=== PATIENT | male | born 1950 | race Caucasian/White ===

== ENCOUNTER 2019-01-09 11:08 | Inpatient (IN) | payer MEDICARE, OTHER ==
[2019-01-09] MEDS ORDERED: NS 0.9% 1000 ML** 1,000 ML IV ONE (11:15)
--- NOTE | 2019-01-09 11:15 | ED ---
Dizziness - HPI Summary HPI Summary: This patient is a 68 year old male with a Hx of hypertension brought in by EMS accompanied by his son presenting to [facility] with a chief complaint of dizziness. The patient states he has a headache. His son states he was walking slowly and not feeling right since last night. His son reports weakness and nausea. EMS states on scene he was experiencing weakness. The patient states he fell today without injury. EMS reports a left-sided facial droop and the patient reports visual changes in his left eye. His last known normal was 2100 last night. He required assistance getting out of bed this morning. The patient is alert and oriented X3. Pt denies any fever, chills, erythema of eyes, sore throat, CP, SOB , cough, abdominal pain, N/V, dysuria, hematuria, myalgia, edema, or rash. - History Of Current Complaint Stated Complaint: DIZZY, Hx Obtained From: Patient, EMS Character: Dizzy Associated Signs And Symptoms: Positive: Nausea - Allergies/Home Medications Allergies/Adverse Reactions: Allergies Allergy/AdvReac Type Severity Reaction Status Date / Time No Known Allergies Allergy Verified 01/09/19 12:14 Home Medications: Home Medications Ibuprofen TAB* [Advil TAB*] 200 mg PO Q6H PRN 01/09/19 [History Confirmed ] Review of Systems Negative: Fever, Chills Positive: Blurred Vision - Left eye visual field changes. Negative: Erythema Negative: Sore Throat Negative: Chest Pain Negative: Shortness Of Breath, Cough Positive: Nausea. Negative: Abdominal Pain, Vomiting Negative: dysuria, hematuria Negative: Myalgia, Edema Negative: Rash Neurological: Other - Dizziness, left sided facial droop Positive: Headache All Other Systems Reviewed And Are Negative: Yes Physical Exam - Summary Physical Exam Summary: Constitutional: Well-developed, Well-nourished, Alert. (-) Distressed Skin: Warm, Dry HENT: Normocephalic; Atraumatic Eyes: Conjunctiva normal Neck: Musculoskeletal ROM normal neck. (-) JVD, (-) Stridor, (-) Tracheal deviation Cardio: Rhythm regular, rate normal, Heart sounds normal; Intact distal pulses; The pedal pulses are 2+ and symmetric. Radial pulses are 2+ and symmetric. (-) Murmur Pulmonary/Chest wall: Effort normal. (-) Respiratory distress, (-) Wheezes, (-) Rales Abd: Soft. (-) Tenderness, (-) Distension, (-) Guarding, (-) Rebound Musculoskeletal: (-) Edema Lymph: (-) Cervical adenopathy Neuro: Alert, Oriented x3, Strength normal, Cranial nerves II-XII are grossly intact. (-) Dysmetria, (-) Nystagmus, (-) Ataxia by finger to nose testing, (-) Sensory deficit. Ptosis of the left eye. Dysmetria on the left side. Left side visual field cut. Psych: Mood and affect Normal Triage Information Reviewed: Yes Vital Signs On Initial Exam: Temp Pulse Resp BP Pulse Ox 98.2 F 78 16 204/118 95 01/09/19 12:07 01/09/19 12:07 01/09/19 12:07 01/09/19 12:07 01/09/19 12:07 Vital Signs Reviewed: Yes Procedures - Sedation Patient Received Moderate/Deep Sedation with Procedure: No Diagnostics - Laboratory Result Diagrams: 01/11/19 06:09 01/10/19 04:35 Lab Statement: Any lab studies that have been ordered have been reviewed, and results considered in the medical decision making process. - Radiology CXR Radiology Interpretation Completed By: Radiologist Summary of Radiographic Findings: Diffuse mild prominence of the interstitial markings. Mild interstitial edema is not excluded. RIGHT paratracheal lymphadenopathy evident based on correlation with Ct aortogram of the neck of the same date. Probably additional bilateral hilar lymphadenopathy. Consider Ct of the chest with IV contrast for further assessment. ED Provider has reviewed this report. - CT Brain CT Interpretation Completed By: Radiologist Summary of CT Findings: Hypodense area in the right posterior cerebellum. This may represent an infarct. No hemorrhage is noted. ED Provider has reviewed this report. Head CTA CT Interpretation Completed By: Radiologist Summary of CT Findings: No evidence of large vessel occlusion is noted. No branch occlusion is identified. Anterior and middle cerebral arteries are patent. There is mediastinal adenopathy present. ED Provider has reviewed this report. National Institutes Of Health - NIH Scale Level of Consciousness: Alert/Keenly Responsive Ask Patient the Month and His/Her Age: Both Correct Ask Pt to Open/Close Eyes and Social Work Professor/Release Non-Paretic Hand: Both Correctly Best Gaze (Only Horizontal Eye Movement): Normal Visual Field Testing: Complete Hemianopia Facial Paresis-Pt to Smile & Close Eyes or Grimace Symmetry: Minor Paralysis Motor Function - Right Arm: No Drift-Holds 10 Seconds Motor Function - Left Arm: No Drift-Holds 10 Seconds Motor Function - Right Leg: No Drift-Holds 10 Seconds Motor Function - Left Leg: No Drift-Holds 10 Seconds Limb Ataxia-Must be out of Proportion to Weakness Present: Present in One Limb Sensory (Use Pinprick to Test Arms/Legs/Trunk/Face): Normal Best Language (Describe Picture, Name Items): No Aphasia Dysarthria (Read Several Words): Normal Extinction and Inattention: No Abnormality Total Score: 4 Dizzy Course/Dx - Course Course Of Treatment: This patient is a 68 year old male with a Hx of hypertension brought in by EMS accompanied by his son presenting to [facility] with a chief complaint of dizziness. EMS reports left sided facial droop and he states visual changes in his left eye. Keyonna Shipley called at 1115. Physical exam revealed Ptosis of the left eye. Dysmetria on the left side. Left side visual field cut. Dr. Galvez, Neurology, came into the see the patient at 1118. Patient had a NIH Stroke Scale score of 4. Patient taken to CT at 11:25. Spoke with Dr. Cha, Radiology concerning the results of the brain CT and CTA. Brain CT reveals Hypodense area in the right posterior cerebellum. This may represent an infarct. No hemorrhage is noted. Head CTA reveals No evidence of large vessel occlusion is noted. No branch occlusion is identified. Anterior and middle cerebral arteries are patent. There is mediastinal adenopathy present. CXR reveals Diffuse mild prominence of the interstitial markings. Mild interstitial edema is not excluded. RIGHT paratracheal lymphadenopathy evident based on correlation with Ct aortogram of the neck of the same date. Probably additional bilateral hilar lymphadenopathy. Consider Ct of the chest with IV contrast for further assessment. Labs were unremarkable except Hgb 13.7 L, Hct 41 L, Absolute Lymphs 0.5 L, glucose 128 H, Troponin 0.03 H. The patient was administered Lipitor, ASA, Tylenol, Visipaque, and NS. Consulted with Dr. Galvez , who recommended permissive hypertension up to 220 systolic. This plan was relayed to Dr. Leiva, Hospitalist, who accepted the patient for admission to the hospital and told to prepare for ICU admission. A plan for admission was discussed with the patient and he was agreeable with this plan. - Diagnoses Provider Diagnoses: CVA (cerebral vascular accident) During the Visit The Following Alert/Code Occurred: Code Shipley - Provider Notifications Discussed Care Of Patient With: Jasmina Galvez - Neurology Time Discussed With Above Provider: 11:20 - Code Shipley Neurology Exam Instructed by Provider To: MD Will See In ED Discharge ED - Sign-Out/Discharge Documenting (check all that apply): Patient Departure - Admission - Discharge Plan Condition: Stable Disposition: ADMITTED TO [facility] - Billing Disposition and Condition Condition: STABLE Disposition: Admitted to [facility] - Attestation Statements Document Initiated by Scribe: Yes Documenting Scribe: Patrick Hylton Provider For Whom Javan is Documenting (Include Credential): Abiel Puga MD Scribe Attestation: Patrick Horne scribed for Abiel Puga MD on 01/15/19 at 1236. Scribe Documentation Reviewed: Yes Provider Attestation: The documentation as recorded by the Patrick oneil accurately reflects the service I personally performed and the decisions made by Abiel fonseca MD Status of Scribe Document: Viewed
[2019-01-09] MEDS ORDERED: Iodixanol* (CONTRAST) 320 MG/ML 100 ML SDV IV ONE (11:31)
[2019-01-09 12:12] LABS: ABS Lymphocytes 0.5 10^3/ul (1.0-4.8); ABS Monocytes 0.2 10^3/ul (0-0.8); ABS Neutrophils 7.2 10^3/ul (1.5-7.7); Hematocrit 41 % (42-52); Hemoglobin 13.7 g/dL (14.0-18.0); Lymphocyte % 6.3 %; Mean Corpuscular HGB Conc 34 g/dL (31-36); Mean Corpuscular Hemoglobin 30 pg (27-31); Mean Corpuscular Volume 89 fL (80-94); Mean Platelet Volume 7.7 fL (7.4-10.4); Platelet Count 298 10^3/uL (150-450); Red Blood Count 4.55 10^6 /uL (4.18-5.48); Red Cell Distribution Width 15 % (10-15); White Blood Count 7.9 10^3/uL (3.5-10.8)
[2019-01-09 12:22] LABS: INR 1.01 (0.82-1.09)
[2019-01-09 12:33] LABS: Albumin 4.4 g/dL (3.2-5.2); Albumin/Globulin Ratio 1.3 (1-3); Calcium 9.1 mg/dL (8.6-10.3); EGFR African American 90.2 (>60); EGFR Non-African American 74.5 (>60); Globulin 3.5 g/dL (2-4); HDL Cholesterol 42.8 mg/dL; Potassium 4.2 mmol/L (3.5-5.0); Total Bilirubin 0.4 mg/dL (0.2-1.0); Total Protein 7.9 g/dL (6.4-8.9)
[2019-01-09 12:42] LABS: Troponin I 0.03 ng/mL (<0.03)
--- NOTE | 2019-01-09 12:53 | CONSULT ---
Consult Consult: Neurology Inpatient Consult Note Date of service: 01/09/2019 Reason for consult: Neurology was consulted by activating the code ford for stroke. The history was obtained by the patient and his son who was at bedside. 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 The patient was last known well on 01/08/2019 at 2100. The patient's son discovered the patient's deficits at 1000 on 01/09/2019. The son was picking his dad up so they both can start their day at work. The patient stated that he had trouble sleeping all night. He complained of headaches, gait imbalance, and visual problems. He cannot see anything on the right side. he denied any double vision. The headache is mostly in the posterior region and is not associated with nausea or vomiting. He reports no focal weakness. He did fall last night but did not lose consciousness. The patient is aspirin naive. NIHSS: 8. Please see the NIHSS check list in the ED records. Patient was deemed not a candidate for IV tPA on 01/09/2019 at 1130 a.m. Labs, Imaging and Other Diagnostics: Glucose: 128 Total Cholesterol: 205 LDL: 138 IMAGING: CT head without contrast 01/09/2019: area of hypoattentuation in the right cerebellum and left occipital lobe suggestive of multifocal embolic strokes. CTA head and neck 01/09/2019: no intracranial large vessel occlusion, aneurysms , or dissection. Past Medical History: no significant PMH Past Surgical History: cholecystectomy Family History: No family history of stroke or seizures. Social History: Denied tobacco or excessive alcohol use. Denied drug use. He lives alone. 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 Medications: Ibuprofen TAB* [Advil TAB*] 200 mg PO Q6H PRN 01/09/19 [History Confirmed ] Allergies No Known Allergies Allergy (Verified 01/09/19 12:14) Review of Systems: A 14-point ROS was obtained and otherwise negative except for what was mentioned in the HPI. Physical Exam: Vitals: Vital Signs - 12 hr Temp Pulse Resp BP Pulse Ox 01/09/19 12:07 98.2 F 78 16 204/118 95 01/09/19 11:43 98.3 F 77 17 204/118 96 01/09/19 11:42 97 01/09/19 11:11 98.3 F 77 19 225/126 95 General: well nourished, well developed. Alert, cooperative, no apparent distress, appears stated age. Head: normocephalic, without obvious abnormality Eyes: conjunctivae/corneas clear Neck: supple, symmetrical. No carotid bruit. No lymphadenopathy. Lungs: clear to auscultation bilaterally, non-labored CV: regular rhythm, S1, S2 normal, radial pulses palpable Extremities: normal range of motion with no cyanosis. Skin: no skin lesions or lacerations Psych: affect-broad and normal mood. Easy to establish rapport. Neurological examination: Mental status: awake; alert and oriented to person, place, time, & general circumstances; speech & language including expression, naming, repetition, & comprehension was assessed and found to be normal. Cranial nerves: I: not tested II, III, IV, : Pupils midrange and reactive to light, right homonomous hemianopsia. left eye droop/ptosis. V 1/2/3: sensation is intact on forehead, cheeks, and jaw region VII: Mild right facial droop. VIII: able to hear throughout the history process IX & X: symmetric palatal elevation XI: normal strength against resistance XII: tongue is symmetrical & midline with no atrophy or fasciculations Motor (R/L): moves all extremities to command and against gravity, subtle weakness on the right. Reflexes R L Brachioradialis 2+ 2+ Biceps 2+ 2+ Triceps 2+ 2+ Patella 2+ 2+ Ankle 1 1 Plantar Extensor flexor Sensation is intact to light touch throughout. Coordination: severe dysmetria to finger to nose and HTS testing on the right. Gait & Station: n/a due to stroke Assessment: Mr. Cain Pratt is a 68-year-old right-handed man who has no significant medical history who presented to [facility] with stroke. 1. Acute multifocal ischemic strokes involving the left posterior cerebral and right superior cerebellar arteries. - NIHSS: 8. The patient is not a candidate for IV tPA as he presented outside the therapeutic window. There is no evidence for an LVO on CTA head and neck so he is not a candidate for mechanical thrombectomy. - The stroke etiology- cardio embolic due to two vessel involvement. There is no evidence of vertebral artery dissection. 2. Hypertensive emergency related to stroke 3. Headache due to stroke. There is no evidence of ICH on imaging. Recommendations: - Admit to ICU for 24 hours observation. - The right cerebellar stroke is close to the 4th ventricle. While the ventricle is patent, cerebral edema within the next 48-72 hours may increase the patient's risk of developing hydrocephalus. - Neuro checks every one hour - MRI brain without contrast - 2D TTE with bubble study - Anticoagulation therapy: not indicated unless he develops atrial fibrillation - Antiplatelet therpay: Aspirin 300 mg suppository - Start atorvastatin 80 mg nightly - Obtain a lipid panel - Headache: treat with suppository acetaminophen - Low threshold for stat CT head for any new neurological complaints or symptoms. - Permissive hypertension. Treat with labetalol 10 mg if SBP>220 and DBP >110 mmHg. - PT/OT/FLEXOGRAPHIC PRESS PLATE SETTER evaluation and treatment - DVT prophylaxis: [facility] will continue to follow. Discussed the above recommendations with the patient's son and Dr. Puga Critical care time: 60 minutes. Jasmina Galvez MD Date: 01/09/2019 Time: 4393
[2019-01-09] MEDS ORDERED: Perflutren Lipid Microsphere* 3 ML VIAL ONE (15:56)
--- NOTE | 2019-01-09 16:39 | HP ---
CC: [facility] * HISTORY AND PHYSICAL: DATE OF ADMISSION: 01/09/19 PRIMARY CARE PROVIDER: None; [facility]. ATTENDING PHYSICIAN: Betsey Leiva MD * (dictated by DOUGLAS Sharpe). CHIEF COMPLAINT: "I couldn't move." HISTORY OF PRESENT ILLNESS: Mr. Pratt is a 68-year-old male with a past medical history of borderline hypertension, BPH, history of alcoholism who has been lost to follow up for approximately 15 years and presented to the ER today with complaints of headache, weakness, dizziness, nausea, vision changes. The patient states that yesterday afternoon he started to feel weakness with headache and difficulty with movement. This morning, his son came to pick him up for work and the patient continued to have headache and weakness. An ambulance was called and he was brought to the ER. He was found to have an NIH stroke scale of 8, last known well 2100 on 01/08/19. Currently, he continues to have some headache and difficulty with movement, described as generalized weakness with no perceived difference in upper and lower extremities, left versus right. He complains of occasional night sweats for the last 1 to 2 days. He does complain of dizziness, lightheadedness, and vision changes. He does not feel that his vision changes are acute, rather that they have been "coming on a while." He complains of occasional palpitations, the last one occurring approximately 2 days ago. He denies fevers, chills, cough, shortness of breath. He denies dysphagia, dysarthria. He denies weight loss. He does complain of some heartburn. In the ER, the patient received a full workup including blood work revealing a mild anemia. He is noted to be hypertensive with systolic blood pressures in the 200s. A CT of the brain reveals a hypodense area in the right posterior cerebellar, likely infarct. CTA of the head and neck shows no large vessel occlusion, positive for mediastinal adenopathy. Chest x-ray shows right paratracheal lymphadenopathy, prominent interstitial markings. EKG with a rate of 77, normal sinus rhythm, no ST changes. The patient was given 1 L normal saline IV, 300 mg of aspirin per rectum, as well as 650 mg of acetaminophen per rectum. The hospitalist team was asked to further evaluate the patient for admission. PAST MEDICAL HISTORY: 1. Borderline hypertension. 2. BPH. 3. Remote history of alcoholism, last use 1990. The patient has been lost to follow up for approximately 15 years. PAST SURGICAL HISTORY: Hernia repair x2, cholecystectomy. HOME MEDICATIONS: Ibuprofen 200 mg p.o. q.6 hours p.r.n. pain. DRUG ALLERGIES: No known drug allergies. FAMILY HISTORY: Father had a history of IA, CABG, chronic kidney disease. He in his 70s from complications from chronic kidney disease. Mother is alive and healthy. The patient has a maternal grandfather with a history of lung cancer. No other history of cancer. No family history of diabetes mellitus or CVA. SOCIAL HISTORY: The patient quit smoking approximately 23 years ago, prior to that he smoked 3 packs a day for approximately 25 years. He lives alone with his cats. 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 In the event that he is unable to make his own medical decisions, he has appointed his son, Caesar Pratt, to be his surrogate decision maker. REVIEW OF SYSTEMS: A 14-point review of systems has been performed and all the pertinent positives and negatives are in the HPI. All other systems are negative. PHYSICAL EXAMINATION GENERAL: Mr. Pratt is a well-developed, well-nourished, obese 68-year-old white male who is sitting up in bed. He appears to be in no acute distress. There is a notable left facial droop. He is resting and breathing comfortably. HEENT: PERRL. EOMI. There is a visual field deficit. Right homonymous hemianopia. Nonicteric sclerae. Hearing is grossly intact. Oral mucous membranes are moist. There are no lesions. The tongue is at midline. Palate elevates symmetrically. There is a noted left facial droop. PULMONARY: Symmetrical chest expansion without use of accessory muscles. Clear to auscultation bilaterally without rhonchi, wheeze, rubs, or rales. No digital clubbing or cyanosis. CARDIOVASCULAR: Regular rate and rhythm with S1, S2 present without murmurs, rubs, clicks, or gallops. There is no JVD. There is no peripheral edema. Radial and pedal pulses are palpable. ABDOMEN: Obese. Bowel sounds in all quadrants. Soft, nontender to palpation. MUSCULOSKELETAL: Full range of motion without pain or deformity. 5/5 strength bilaterally in the upper and lower extremities. NEURO: The patient is awake. He is alert and oriented x3. He does have a facial droop. He has right homonymous hemianopia. Otherwise, cranial nerves II through XII grossly intact. Muscle strength 5/5 bilaterally in upper and lower extremities. Gait not assessed due to reported weakness. DIAGNOSTIC STUDIES/LAB DATA: Hgb 13.7, HCT 41. LDL 138. 1. CT brain, impression: Hypodense area in the right posterior cerebellum. This may represent an infarct. No hemorrhage is noted. 2. CTA of the head and neck, impression: No evidence of large vessel occlusion is noted. No branch occlusion is identified. Anterior and middle and cerebral arteries are patent. There is mediastinal adenopathy present. 3. Chest x-ray, impression: Diffuse mild prominence of the interstitial markings, mild interstitial edema is not excluded, right paratracheal lymphadenopathy evident based on correlation with CT aortogram of the neck of the same date. Probable additional bilateral hilar lymphadenopathy. Consider CT of the chest with IV contrast for further assessment. ASSESSMENT AND PLAN: Mr. Pratt is a 68-year-old male with a past medical history of borderline hypertension, benign prostatic hyperplasia, history of alcoholism, who has not seen a medical professional in approximately 15 years, who presents to the ER today with complaints of headache, weakness, and is found to have a cerebrovascular accident CT imaging of the brain. The patient will be admitted for: 1. Cerebrovascular accident. CT of the brain shows right cerebellar infarct. The patient's NIH stroke scale was 8. He was not a candidate for IV tPA. He has been given aspirin OK and we will continue this while inpatient. He will be admitted to intensive care unit on telemetry. Neuro checks q.4 hours have been ordered. Neurology has been consulted and they are following: An echo with bubble study has been ordered, MRI of the head will be performed. Lipid panel and hemoglobin A1c have been ordered. The patient is noted to have an LDL of 138. It is recommended that he start on atorvastatin 80 mg once he is swallowing appropriately. Speech therapy, occupational therapy, physical therapy has been ordered, as has swallow evaluation. Currently, the patient is hypertensive, but we will allow permissive hypertension to systolic pressure of 220. 2. Lymphadenopathy. The patient has noted lymphadenopathy on CTA of the neck as well as chest x-ray. Recommendations are CT chest with contrast. 3. Hyperlipidemia. The patient has an LDL of 138. We will repeat lipid panel in the morning. The patient should be treated with high-dose statin therapy once he is able to swallow. 4. Hypertension. The patient has a history of borderline hypertension. We will continue to monitor his blood pressure throughout his stay. At this time, we will allow for permissive hypertension to systolic blood pressure of 220 in the acute phase of CVA, but we will reassess thereafter for need for further intervention. 5. DVT prophylaxis. According to the DVT Risk Assessment, the patient scores 3 , placing him at high risk. He will be placed on SCDs. 7. Code status. Full code. TIME SPENT: Approximately 70 minutes was spent on this admission, greater than half that time was spent [id number] with the patient and the son obtaining history, performing a physical, and reviewing the plan of care. The case has been discussed with my attending, Dr. Leiva, who is in agreement with the plan of care. DOUGLAS EASTON [id number]/[facility] #: [id number]
--- NOTE | 2019-01-09 17:08 | ECHO ---
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 History: Risk factors: Hypertension. Obese. Conclusions Summary: - Left ventricle: Systolic function is normal. The estimated ejection fraction is 60-65%. Wall motion is normal; there are no regional wall motion abnormalities. - Right ventricle: Systolic function is normal. - Atrial septum: No defect or patent foramen ovale is identified. - Mitral valve: There is trace regurgitation. - Aortic valve: The findings are consistent with moderate stenosis. There is no significant regurgitation. The peak systolic velocity is 2.91 m/sec. The mean systolic gradient is 22.0 mm Hg. The valve area by the peak velocity method is 1.58 cm^2. - Tricuspid valve: There is no significant regurgitation. - Pulmonary arteries: Systolic pressure can not be accurately estimated. - Study data: No prior study is available for comparison. Study data: Transthoracic echocardiogram. Procedure: Transthoracic echocardiography was performed. Image quality was fair. The study was technically limited due to body habitus. Intravenous Definity 4 ml was administered by Chase Barber RN to enhance imaging. A bubble study was performed using agitated saline on Images 117 and 118. Complete 2D, spectral Doppler, and color flow Doppler. Location: ICU Patient status: Inpatient. Patient room number: ICU 7. No prior study is available for comparison. Rhythm: Normal sinus rhythm. Findings Left ventricle: The cavity size is normal. Wall thickness is moderately increased. Systolic function is normal. The estimated ejection fraction is 60-65%. Wall motion is normal; there are no regional wall motion abnormalities. There is no consistent Doppler evidence of clinically significant diastolic dysfunction. Right ventricle: The cavity size is normal. Systolic function is normal. Left atrium: The atrium is normal in size. Right atrium: The atrium is normal in size. Atrial septum: No defect or patent foramen ovale is identified. Bubble study was negative on Images 117 and 118. Mitral valve: The leaflets are mildly thickened. There is no evidence of stenosis. There is trace regurgitation. Aortic valve: A bicuspid morphology cannot be excluded. The leaflets are moderately thickened. The findings are consistent with moderate stenosis. There is no significant regurgitation. Tricuspid valve: Not well visualized. There is no evidence of stenosis. There is no significant regurgitation. Pulmonic valve: Not well visualized. There is no evidence of stenosis. There is no significant regurgitation. Aorta: Aortic root: The aortic root is mildly dilated at 3.7 cm. Ascending aorta: The ascending aorta is moderately dilated at 4.3 cm. Aortic arch: The aortic arch is not dilated. Pericardium: There is no pericardial effusion. Pulmonary arteries: Not well visualized. Systolic pressure can not be accurately estimated. Systemic veins: Inferior vena cava: The vessel is normal in size. Measurements Left ventricle Value Ref Aortic valve Value Ref STEPAN, LAX 5.3 cm 4.2 - 5.8 Lin diam, ED 2.1 cm ---- ESD, LAX 3.2 cm 2.5 - 4.0 Lin diam/bsa, ED 1.0 cm/m^2 ---- FS, LAX 41 % 25 - 43 Peak v, S 2.91 m/sec ---- PW, ED (H) 1.3 cm 0.6 - 1.0 VTI, S 62.9 cm ---- IVS/PW, ED 1.34 Mean grad, S 22.0 mm Hg ---- E', lat lin, TDI (L) 5.1 cm/sec >=10.0 Peak grad, S 34.0 mm Hg - --- E/e', lat lin, 18 LVOT/AV, VTI ratio 0.38 ---- TDI CECY, VTI 1.45 cm^2 ---- E', med lin, TDI (L) 5.0 cm/sec >=7.0 CECY, Vmax 1.58 cm^2 - --- E/e', med lin, 18 TDI Mitral valve Value Ref E', avg, TDI 5.1 cm/sec Peak E 0.92 m/sec ---- E/e', avg, TDI (H) 18 <=14 Peak A 1.17 m/sec - --- Decel time 201 ms ---- LVOT Value Ref Peak grad, D 3.4 mm Hg ---- Diam, S 2.20 cm Peak E/A ratio 0.8 ---- Area 3.8 cm^2 Peak carson, S 1.21 m/sec Pulmonic valve Value Ref VTI, S 24.0 cm Peak v, S 0.91 m/sec ---- Peak grad, S 6 mm Hg Peak grad, S 3.0 mm Hg ---- Mean grad, S 4 mm Hg SV 87 ml Aortic root Value Ref SV/bsa 41 ml/m^2 Root diam 3.7 cm <4.2 Ventricular septum Value Ref Ascending aorta Value Ref IVS, ED (H) 1.7 cm 0.6 - 1.0 AAo AP diam, S 4.3 cm ---- Right ventricle Value Ref Aortic arch Value Ref STEPAN, LAX 3.0 cm Arch diam 3.3 cm ---- STEPAN minor ax, A4C (H) 4.0 cm 1.9 - 3.5 mid Decending aorta Value Ref Claritza peak carson 0.6 m/sec ---- Left atrium Value Ref AP dim, ES (H) 4.10 cm 3.00 - Inferior vena cava Value Ref 4.00 Diam 2.0 cm ---- ML dim, A4C 4.2 cm SI dim, A4C 5.5 cm Vol/bsa, ES, 1-p 22 ml/m^2 12 - 37 A4C Vol/bsa, ES, A/L 29 ml/m^2 16 - 34 Right atrium Value Ref ML dim, ES, A4C 4.0 cm 2.6 - 4.4 SI dim, ES, A4C 4.9 cm 3.4 - 5.3 Estimated RAP 3 mm Hg Legend: (L) and (H) radha values outside specified reference range. Prepared and electronically signed by Fredy James MD 01/09/2019 17:07
[2019-01-09 17:28] LABS: Urine Appearance Clear; Urine Bilirubin Negative (Negative); Urine Blood Negative (Negative); Urine Color Yellow; Urine Glucose Negative (Negative); Urine Ketones Trace (Negative); Urine Nitrite Negative (Negative); Urine Protein Negative (Negative); Urine Specific Gravity 1.048 (1.010-1.030); Urine Urobilinogen Negative (Negative)
[2019-01-09] MEDS: Ondansetron INJ* 2 MG/ML VIAL IV PRN (18:19)
[2019-01-09] MEDS: Acetaminophen TAB* 325 MG PO PRN (18:23)
[2019-01-09] MEDS ORDERED: Atorvastatin* 80 MG TAB PO ONE (21:00)
[2019-01-10 05:05] LABS: HDL Cholesterol 35.1 mg/dL
[2019-01-10 06:57] LABS: BUN/Creatinine Ratio 16.2 (8-20); Calcium 8.3 mg/dL (8.6-10.3); EGFR Non-African American 66.1 (>60); Potassium 3.5 mmol/L (3.5-5.0)
--- NOTE | 2019-01-10 08:25 | PN ---
Subjective Date of Service: 01/10/19 Interval History: Mr. Pratt is feeling fine this morning. No changes from yesterday. Still feeling generally weak and bilateral right homonymous hemianopsia. Having a mild headache on and off. No dizziness or other neuro deficits. Nursing reports patient passed bedside swallow eval yesterday. Neuro checks overnight have been consistent. Family History: Unchanged from Admission Social History: Unchanged from Admission Past Medical History: Unchanged from Admission Objective Active Medications: Acetaminophen (Tylenol Tab*) 975 mg PO Q8H PRN mild to moderate pain Aspirin (Aspirin 81 Mg Chew Tab*) 81 mg PO DAILY LEX Atorvastatin Calcium (Lipitor*) 80 mg PO 1700 LEX Influenza Virus Vaccine (Fluarix Quad 3297-0430 Syr) 0.5 ml IM .ONCE ONE Ondansetron HCl (Zofran Inj*) 4 mg IV Q6H PRN NAUSEA Pneumococcal Polyvalent Vaccine (Pneumococcal Vac 23-Polyvalent*) 0.5 ml IM .ONCE ONE Vital Signs - 8 hr 01/10/19 01/10/19 01/10/19 00:30 00:45 01:00 Temperature Pulse Rate 65 65 65 Respiratory 17 15 19 Rate Blood Pressure 166/88 182/106 175/106 (mmHg) O2 Sat by Pulse 98 98 98 Oximetry 01/10/19 01/10/19 01/10/19 01:15 01:30 01:46 Temperature Pulse Rate 62 63 62 Respiratory 15 14 20 Rate Blood Pressure 187/107 181/105 172/102 (mmHg) O2 Sat by Pulse 98 98 98 Oximetry 01/10/19 01/10/19 01/10/19 02:00 02:15 02:30 Temperature Pulse Rate 61 65 64 Respiratory 15 17 15 Rate Blood Pressure 177/104 171/99 152/94 (mmHg) O2 Sat by Pulse 97 96 94 Oximetry 01/10/19 01/10/19 01/10/19 02:45 03:00 03:15 Temperature Pulse Rate 64 63 60 Respiratory 15 16 16 Rate Blood Pressure 155/94 163/97 157/87 (mmHg) O2 Sat by Pulse 94 95 91 Oximetry 01/10/19 01/10/19 01/10/19 03:30 03:45 03:52 Temperature 99.6 F Pulse Rate 59 59 Respiratory 15 14 Rate Blood Pressure 162/96 185/106 (mmHg) O2 Sat by Pulse 96 99 Oximetry 01/10/19 01/10/19 01/10/19 04:00 04:15 04:30 Temperature Pulse Rate 57 56 64 Respiratory 13 15 15 Rate Blood Pressure 162/97 158/96 183/108 (mmHg) O2 Sat by Pulse 97 97 98 Oximetry 01/10/19 01/10/19 01/10/19 04:45 05:00 05:15 Temperature Pulse Rate 59 57 58 Respiratory 14 16 16 Rate Blood Pressure 178/102 166/99 163/88 (mmHg) O2 Sat by Pulse 98 96 98 Oximetry 01/10/19 01/10/19 01/10/19 05:30 05:45 06:00 Temperature Pulse Rate 58 60 64 Respiratory 15 16 15 Rate Blood Pressure 156/83 167/91 192/111 (mmHg) O2 Sat by Pulse 98 98 97 Oximetry 01/10/19 01/10/19 01/10/19 06:15 06:30 06:45 Temperature Pulse Rate 63 61 63 Respiratory 15 15 16 Rate Blood Pressure 207/117 178/108 188/106 (mmHg) O2 Sat by Pulse 98 97 96 Oximetry 01/10/19 01/10/19 01/10/19 07:00 07:16 07:30 Temperature Pulse Rate 65 79 64 Respiratory 18 15 11 Rate Blood Pressure 199/115 200/119 190/108 (mmHg) O2 Sat by Pulse 98 98 97 Oximetry 01/10/19 01/10/19 07:45 07:50 Temperature Pulse Rate 67 Respiratory 16 12 Rate Blood Pressure 191/107 (mmHg) O2 Sat by Pulse 98 Oximetry Oxygen Devices in Use Now: Nasal Cannula - 2L Appearance: Middle-aged male lying in bed in NAD Neck: NL Appearance and Movements; NL JVP, Trachea Midline Respiratory: Symmetrical Chest Expansion and Respiratory Effort Cardiovascular: RRR Abdominal: NL Sounds; No Tenderness; No Distention Extremities: No Edema Neurological: Alert and Oriented x 3 Lines/Tubes/Other Access: Clean, Dry and Intact Peripheral IV Result Diagrams: 01/09/19 12:05 01/10/19 04:35 Assess/Plan/Problems-Billing Assessment: Mr. Pratt is a 68 yo M with PMH of HTN, BPH; who has not seen a provider in 15 years; who presented to the ED with c/o being unable to move and was found to have an acute CVA. - Patient Problems (1) Ischemic cerebrovascular accident (CVA) Code(s): I63.9 - CEREBRAL INFARCTION, UNSPECIFIED Comment: - Presented with generalized weakness, mild right facial droop, right homonymous hemianopsia - CT brain shows right posterior cerebellar infaract - CTA head shows mediastinal lymphadenopathy but no large vessel occlusion - MRI brain shows acute infarcts in right superior cerebellum and left occipital area - Echo unremarkable for PFO - Appreciate Neuro consult; recommends aspirin only d/t increased risk of bleeding from large infarcts, loop recorder - Allow permissive HTN up to 220 systolic and 110 diastolic - PT/OT and speech therapy evals - Contacted Cardiology for loop recorder placement - Continue aspirin, atorvastatin (2) Hypertension Code(s): I10 - ESSENTIAL (PRIMARY) HYPERTENSION Comment: - SBP up to the 220s on admission, now in 190s - Allow permissive HTN - Continue labetalol PRN for SBP >220 or DBP >110 (3) Headache Code(s): R51 - HEADACHE Comment: - Suspect this is secondary to HTN - Continue Tylenol PRN (4) Hyperlipidemia Code(s): E78.5 - HYPERLIPIDEMIA, UNSPECIFIED Comment: - LDL 122 - Continue atorvastatin (5) Mediastinal lymphadenopathy Code(s): R59.0 - LOCALIZED ENLARGED LYMPH NODES Comment: - Incidental finding, noted on CXR and head/neck CTA - Will need outpatient f/u CT chest with contrast for further evaluation (6) DVT prophylaxis Code(s): Z29.9 - ENCOUNTER FOR PROPHYLACTIC MEASURES, UNSPECIFIED Comment: - SCDs (7) Full code status Code(s): Z78.9 - OTHER SPECIFIED HEALTH STATUS Comment: Status and Disposition: Inpatient. Anticipate d/c home vs [facility] when medically stable. Attending: Fabricio Bates
[2019-01-10] MEDS ORDERED: Labetalol IV* 5 MG/ML 20 ML VIAL IV PUSH PRN (08:34)
[2019-01-10] MEDS ORDERED: Pneumococcal *Vac Polyvalent 0.5 ML VIAL IM ONE (09:00)
[2019-01-10] MEDS ORDERED: Influenza VAC *QUAD* 2019-20* 0.5 ML SYRINGE IM ONE (09:00)
[2019-01-10] MEDS: Ondansetron INJ* 2 MG/ML VIAL IV PRN ×2 (09:05→18:17)
[2019-01-10] MEDS: Acetaminophen TAB* 325 MG PO PRN ×2 (09:11→22:18)
--- NOTE | 2019-01-10 09:57 | PN ---
Subjective Date of Service: 01/10/19 Length of Stay: 1 Days Neurology is following for stroke. Interval History: He feels nauseated this morning. He has a full diet in front of him. He felt like he was going to vomit. He did drink some coffee and had toast. He had headaches that improved with acetaminophen. He is not choking. He feels slightly better but still has significant deficits consisting of visual impairment on the right. Labs, imaging, and other diagnostic testing: Cholesterol: 205 LDL 138 Glucose: 102 CT Head without contrast 01/09/2019: hypodensity in the right cerebellum and left occipital lobe consistent with a right SCA and left [employer] ischemic infarction. CTA head and neck 01/09/2019: No evidence of large vessel occlusion. No branch occlusion or dissection seen. MRI brain without contrast: acute infarct involving the right superior cerebellar and left [employer] vascular territories. Transthoracic Echo 01/09/2019: Image quality was fair. LVEF: 60-65%. No PFO. Normal left atrium. Aortic valve: bicuspid morphology cannot be excluded, leaflets are moderately thickened, consistent with moderate stenosis. No significant regurgitation. Review of Systems: Denied CP, SOB, or palpitations. Family History: Unchanged from Admission Social History: Unchanged from Admission Past Medical History: Unchanged from Admission Objective Active Medications: Acetaminophen (Tylenol Tab*) 975 mg PO Q8H PRN PRN Reason: mild to moderate pain Last Admin: 01/10/19 09:11 Dose: 975 mg Aspirin (Aspirin 81 Mg Chew Tab*) 81 mg PO DAILY LEX Atorvastatin Calcium (Lipitor*) 80 mg PO 1700 LEX Labetalol HCl (Trandate Iv*) 10 mg IV PUSH Q6H PRN PRN Reason: SBP >220 or DBP >110 Ondansetron HCl (Zofran Inj*) 4 mg IV Q6H PRN PRN Reason: NAUSEA Last Admin: 01/10/19 09:05 Dose: 4 mg Vital Signs 01/09/19 01/09/19 01/09/19 11:11 11:39 11:40 Temperature 98.3 F Pulse Rate 77 78 77 Respiratory 19 19 17 Rate Blood Pressure 225/126 204/118 (mmHg) O2 Sat by Pulse 95 97 96 Oximetry 01/09/19 01/09/19 01/09/19 11:42 11:43 12:00 Temperature 98.3 F Pulse Rate 77 79 Respiratory 17 20 Rate Blood Pressure 204/118 (mmHg) O2 Sat by Pulse 97 96 95 Oximetry 01/09/19 01/09/19 01/09/19 12:07 12:10 12:40 Temperature 98.2 F Pulse Rate 78 77 74 Respiratory 16 17 16 Rate Blood Pressure 204/118 210/118 213/122 (mmHg) O2 Sat by Pulse 95 96 98 Oximetry 01/09/19 01/09/19 01/09/19 13:00 13:10 13:54 Temperature 100.0 F Pulse Rate 78 76 81 Respiratory 18 13 17 Rate Blood Pressure 216/122 197/115 (mmHg) O2 Sat by Pulse 97 97 96 Oximetry 01/09/19 01/09/19 01/09/19 14:00 14:10 14:24 Temperature 97.9 F Pulse Rate 79 79 77 Respiratory 17 19 16 Rate Blood Pressure 196/122 196/122 (mmHg) O2 Sat by Pulse 95 94 95 Oximetry 01/09/19 01/09/19 01/09/19 14:45 14:58 15:00 Temperature Pulse Rate 81 81 79 Respiratory 15 17 10 Rate Blood Pressure 197/115 204/99 192/104 (mmHg) O2 Sat by Pulse 96 96 96 Oximetry 01/09/19 01/09/19 01/09/19 15:15 15:30 15:45 Temperature Pulse Rate 81 76 73 Respiratory 21 9 18 Rate Blood Pressure 210/126 185/100 173/94 (mmHg) O2 Sat by Pulse 97 95 94 Oximetry 01/09/19 01/09/19 01/09/19 16:00 16:16 16:31 Temperature 99.5 F Pulse Rate 82 79 81 Respiratory 20 14 23 Rate Blood Pressure 182/96 157/107 199/111 (mmHg) O2 Sat by Pulse 95 97 97 Oximetry 01/09/19 01/09/19 01/09/19 17:00 17:39 17:42 Temperature Pulse Rate 75 74 Respiratory 20 16 Rate Blood Pressure 195/109 (mmHg) O2 Sat by Pulse 94 94 Oximetry 01/09/19 01/09/19 01/09/19 17:46 18:00 18:15 Temperature Pulse Rate 78 74 72 Respiratory 19 15 21 Rate Blood Pressure 177/83 192/142 206/110 (mmHg) O2 Sat by Pulse 95 93 93 Oximetry 01/09/19 01/09/19 01/09/19 18:30 18:45 19:00 Temperature Pulse Rate 77 70 73 Respiratory 16 13 16 Rate Blood Pressure 185/102 171/108 165/101 (mmHg) O2 Sat by Pulse 90 97 97 Oximetry 01/09/19 01/09/19 01/09/19 19:15 19:30 19:32 Temperature 99.9 F Pulse Rate 75 72 Respiratory 21 17 Rate Blood Pressure 176/106 179/101 (mmHg) O2 Sat by Pulse 94 97 Oximetry 01/09/19 01/09/19 01/09/19 19:45 20:00 20:15 Temperature Pulse Rate 73 71 70 Respiratory 18 17 16 Rate Blood Pressure 173/105 168/109 166/80 (mmHg) O2 Sat by Pulse 97 97 97 Oximetry 01/09/19 01/09/19 01/09/19 20:30 20:45 21:00 Temperature Pulse Rate 72 69 76 Respiratory 17 17 17 Rate Blood Pressure 180/104 174/101 173/97 (mmHg) O2 Sat by Pulse 97 95 96 Oximetry 01/09/19 01/09/19 01/09/19 21:15 21:30 21:45 Temperature Pulse Rate 70 67 68 Respiratory 18 16 16 Rate Blood Pressure 170/95 167/94 162/100 (mmHg) O2 Sat by Pulse 96 95 95 Oximetry 01/09/19 01/09/19 01/09/19 22:00 22:15 22:30 Temperature Pulse Rate 68 64 70 Respiratory 17 15 21 Rate Blood Pressure 187/107 165/99 180/107 (mmHg) O2 Sat by Pulse 98 97 98 Oximetry 01/09/19 01/09/19 01/09/19 22:45 23:00 23:15 Temperature Pulse Rate 61 61 62 Respiratory 20 17 16 Rate Blood Pressure 180/99 177/104 182/101 (mmHg) O2 Sat by Pulse 99 97 98 Oximetry 01/09/19 01/09/19 01/09/19 23:30 23:45 23:48 Temperature Pulse Rate 62 63 62 Respiratory 17 15 16 Rate Blood Pressure 181/99 175/98 (mmHg) O2 Sat by Pulse 98 97 97 Oximetry 01/10/19 01/10/19 01/10/19 00:00 00:16 00:30 Temperature 98.6 F Pulse Rate 62 71 65 Respiratory 17 18 17 Rate Blood Pressure 174/104 182/109 166/88 (mmHg) O2 Sat by Pulse 97 99 98 Oximetry 01/10/19 01/10/19 01/10/19 00:45 01:00 01:15 Temperature Pulse Rate 65 65 62 Respiratory 15 19 15 Rate Blood Pressure 182/106 175/106 187/107 (mmHg) O2 Sat by Pulse 98 98 98 Oximetry 01/10/19 01/10/19 01/10/19 01:30 01:46 02:00 Temperature Pulse Rate 63 62 61 Respiratory 14 20 15 Rate Blood Pressure 181/105 172/102 177/104 (mmHg) O2 Sat by Pulse 98 98 97 Oximetry 01/10/19 01/10/19 01/10/19 02:15 02:30 02:45 Temperature Pulse Rate 65 64 64 Respiratory 17 15 15 Rate Blood Pressure 171/99 152/94 155/94 (mmHg) O2 Sat by Pulse 96 94 94 Oximetry 01/10/19 01/10/19 01/10/19 03:00 03:15 03:30 Temperature Pulse Rate 63 60 59 Respiratory 16 16 15 Rate Blood Pressure 163/97 157/87 162/96 (mmHg) O2 Sat by Pulse 95 91 96 Oximetry 01/10/19 01/10/19 01/10/19 03:45 03:52 04:00 Temperature 99.6 F Pulse Rate 59 57 Respiratory 14 13 Rate Blood Pressure 185/106 162/97 (mmHg) O2 Sat by Pulse 99 97 Oximetry 01/10/19 01/10/19 01/10/19 04:15 04:30 04:45 Temperature Pulse Rate 56 64 59 Respiratory 15 15 14 Rate Blood Pressure 158/96 183/108 178/102 (mmHg) O2 Sat by Pulse 97 98 98 Oximetry 01/10/19 01/10/19 01/10/19 05:00 05:15 05:30 Temperature Pulse Rate 57 58 58 Respiratory 16 16 15 Rate Blood Pressure 166/99 163/88 156/83 (mmHg) O2 Sat by Pulse 96 98 98 Oximetry 01/10/19 01/10/19 01/10/19 05:45 06:00 06:15 Temperature Pulse Rate 60 64 63 Respiratory 16 15 15 Rate Blood Pressure 167/91 192/111 207/117 (mmHg) O2 Sat by Pulse 98 97 98 Oximetry 01/10/19 01/10/19 01/10/19 06:30 06:45 07:00 Temperature Pulse Rate 61 63 65 Respiratory 15 16 18 Rate Blood Pressure 178/108 188/106 199/115 (mmHg) O2 Sat by Pulse 97 96 98 Oximetry 01/10/19 01/10/19 01/10/19 07:16 07:30 07:45 Temperature Pulse Rate 79 64 67 Respiratory 15 11 16 Rate Blood Pressure 200/119 190/108 191/107 (mmHg) O2 Sat by Pulse 98 97 98 Oximetry 01/10/19 01/10/19 07:50 08:30 Temperature 100.8 F Pulse Rate Respiratory 12 Rate Blood Pressure (mmHg) O2 Sat by Pulse Oximetry Intake and Output Last 24 Hours 01/08/19 01/09/19 01/10/19 01/11/19 06:59 06:59 06:59 06:59 Intake Total 700 Output Total 650 175 Balance 50 -175 Weight 230 lb 3.2 oz Intake: IV Fluids 700 NS (0.9%) 700 Output: Urine 650 175 Marcum 0 Other: # Voids 0 Oxygen Devices in Use Now: Nasal Cannula - 2L Neurology Exam: General: Well nourished, well developed, and in no acute distress HEENT: Normocephelic/atraumatic, sclera anicteric, mucous membranes moist Neck: Supple Chest: Clear to auscultation bilaterally Cardiovascular: holosystolic murmur. Extremities: No clubbing, cyanosis, or edema Neurological Findings: Awake, alert, and oriented to person, place, and time. Speech: mild dysarthria. Cranial Nerve: PERRL, severe right homonomous hemianopsia. Partial gaze palsy cannot be overcome. Right facial droop. Motor: s/s throughout, proximal and distal extremities x4 tone/bulk normal Sensation: intact to LT/PP bilaterally upper and lower extremities Deep Tendon Reflex: 2+ symmetric in the upper/lower extremities, Babinski - up going on the right. Dysmetria to finger to nose and heel to thomas testing on the right Gait: Deferred due to severe visual disturbance and dysmetria on examination. Result Diagrams: 01/09/19 12:05 01/10/19 04:35 Microbiology and Other Data: Microbiology 01/09/19 14:55 Nasal Screen MRSA (PCR) - Final Nasal Mrsa Not Detected Assessment/Plan Mr. Cain Pratt is a 68-year-old fairly healthy man with no significant medical history except for a heart murmur who presented to [facility] on 01/09/2019 with sudden onset visual disturbance and ataxia. He was found to have multifocal embolic strokes involving the right superior cerebellar artery and left posterior cerebral artery. He was outside the window for IV tPA. There was no large vessel occlusion on the CTA so he was not a candidate for mechanical thrombectomy. NIHSS is still an 8 today. 1. Acute embolic stroke of undetermined source (ESUS). 2. Nausea related to cerebellar stroke. High risk for aspiration 3. Hypertensive urgency due to stroke 4. Aortic stenosis 5. Dyslipidemia Recommendations: - He will need a ORTIZ to evaluate for thrombus in the left atrial appendage, left ventricle or ascending aorta. If the ORTIZ is negative, we should proceed with a loop recorder to evaluate for atrial fibrillation - Aspirin 81 mg daily and atorvastatin 80 mg nightly. DAPT was not used in this case due to the size of the infarctions and the NIHSS being over 4. - Start Norvasc 5 mg if his SBP goes above 190 mmHg or his DBP goes above 110 mmHg. - PT/OT/CANCER PROGRAM DIRECTOR evaluation and treatment. The patient feels nauseated due to his cerebellar stroke. I recommend not feeding him for the next 24 hours as he is at risk for vomiting and that would increase his risk for aspiration. Restart a modified diet tomorrow. We can give him thickened liquid until we resume a diet. - Stroke education completed - He will need rehabilitation - I will continue to follow - DVT prophylaxis: PCD and heparin 5,000 units subcutaneously every 8 hours.
[2019-01-10] MEDS: Aspirin 81 mg CHEW TAB* 81 MG TAB.CHEW PO SCH (10:42)
[2019-01-10] MEDS ORDERED: Naloxone* 0.4 MG/ML 1 ML VIAL ONE (14:52)
[2019-01-10] MEDS ORDERED: Flumazenil* 0.1 MG/ML 5 ML MDV ONE (14:52)
[2019-01-10] MEDS ORDERED: Lidocaine 2% VISCOUS* 15 ML UDC ONE (14:52)
[2019-01-10] MEDS ORDERED: Midazolam* 1 MG/ML 5 ML VIAL (5 MG) ONE (14:52)
[2019-01-10] MEDS ORDERED: fentaNYL* 50 MCG/ML 2 ML VIAL (100 MCG VIAL) ONE (14:52)
--- NOTE | 2019-01-10 17:01 | TEE ---
*[facility]* [place] [address] Fax #: [phone] Transesophageal Echocardiogram Patient: Cain Pratt : 1950 Study Date: 01/10/2019 Age: 68 Gender: M HR: 76 bpm Height: 66.1 in /168 cm BSA: 2.25 m^2 Weight: 228.8 lb /104 kg BMI: 36.8 kg/m^2 *Senior Javascript Engineer: * Candida Contreras [facility] *Referring Physician: * Kamille Morrissey *Reading Physician: * Fredy James MD Indications: CVA. History: Murmur. Risk factors: Hypertension. Conclusions Summary: - Left ventricle: Systolic function is normal. The estimated ejection fraction is 55-60%. Wall motion is normal; there are no regional wall motion abnormalities. - Left atrium: There is no evidence of a thrombus in the atrial cavity or appendage. - Atrial septum: A PFO is not demonstrated by color Doppler or agitated saline contrast. - Mitral valve: There are frond-like, mobile masses on the atrial aspect which could be consistant with Fibroelastomas or Lambl's excrescences There is trace to mild regurgitation. - Aortic valve: The valve is bicuspid. The leaflets are moderately thickened. 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 There is a small, calcified, mobile mass on the aortic aspect of the anterior cusp. The findings are consistent with moderate stenosis. - Tricuspid valve: There is no significant regurgitation. - Pericardium, extracardiac: There is no significant pericardial effusion. Study data: Diagnostic Transesophageal Echocardiogram Consent: The risks and benefits of the procedure, including alternatives were discussed with the patient and/or their health care business process representative and written informed consent was obtained. Procedure: Initial setup: The patient was brought to the laboratory in the fasting state.Intravenous access was obtained. Surface ECG leads, heart rate, heart rhythm, blood pressure measurements, pulse oximetric signals, and mainstream end-tidal CO2 tracings were monitored throughout the procedure. Sedation. Moderate sedation was administered by nursing staff. History and physical as well as labs were reviewed. An oral bite block was inserted for protection of oral dentition. The patient was placed in the left lateral decubitus position. Topical anesthesia was obtained using viscous lidocaine. A transesophageal probe was inserted by the attending area field worker. Transesophageal echocardiography was performed, image quality was good, and all standard views were attempted within the limitations of patient tolerance and safety. Multiple 2D, color flow Doppler and spectral Doppler images were obtained. The transesophageal probe was removed. There was no blood loss.No specimens obtained.No tubes, implants, or drains. A bubble study was performed. Location: Procedure room. Patient status: Inpatient. Patient room number: ICU 7. Study completion: The patient tolerated the procedure well. There were no complications. Administered medications: Midazolam, 4mg. Fentanyl, 50mcg. Findings Left ventricle: The cavity size is normal. Systolic function is normal. The estimated ejection fraction is 55-60%. Wall motion is normal; there are no regional wall motion abnormalities. Right ventricle: The cavity size is normal. Systolic function is normal. Left atrium: The atrium is normal in size. The appendage is of normal size. There is no evidence of a thrombus in the atrial cavity or appendage. Right atrium: The atrium is normal in size. The Eustachian valve appeared prominant. Atrial septum: A PFO is not demonstrated by color Doppler or agitated saline contrast. Negative bubble study. Mitral valve: The leaflets are normal thickness. There are frond-like, mobile masses on the atrial aspect which could be consistant with Fibroelastomas or Lambl's excrescences There is trace to mild regurgitation. Aortic valve: The valve is bicuspid. The leaflets are moderately thickened. 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 There is a small, calcified, mobile mass on the aortic aspect of the anterior cusp. The findings are consistent with moderate stenosis. There is no significant regurgitation. Tricuspid valve: The leaflets are normal thickness. There is no evidence of stenosis. There is no significant regurgitation. Pulmonic valve: The leaflets are normal thickness. There is no evidence of stenosis. There is no significant regurgitation. Aorta: Aortic root: The aortic root is mildly dilated and calcified. Ascending aorta: The ascending aorta is mildly dilated. Pericardium: There is no significant pericardial effusion. Pulmonary arteries: The main pulmonary artery is normal-sized. Systolic pressure can not be accurately estimated. Systemic veins: Inferior vena cava: The vessel is normal in size. Superior vena cava: The vessel is appears normal. Pulmonary veins: Not well visualized. Measurements Aortic valve Value Ref Mitral valve continued Value Ref Ashly diam, ED 2.5 cm ---- Decel time 82 ms ---- Peak v, S 2.65 m/sec ---- Peak grad, D 2.1 mm Hg ---- VTI, S 56.7 cm ---- Peak E/A ratio 0.7 ---- Mean grad, S 15.0 mm Hg ---- Peak grad, S 28.0 mm Hg ---- Aortic root Value Ref Root diam 3.9 cm <4.3 Mitral valve Value Ref Peak E 0.72 m/sec ---- Ascending aorta Value Ref Peak A 0.99 m/sec ---- AAo AP diam, S 3.9 cm ---- Legend: (L) and (H) radha values outside specified reference range. Prepared and electronically signed by Fredy James MD 01/10/2019 17:00
[2019-01-10] MEDS: Atorvastatin* 80 MG TAB PO SCH (18:17)
[2019-01-11 06:34] LABS: ABS Basophils 0.1 10^3/ul (0-0.2); ABS Lymphocytes 1.6 10^3/ul (1.0-4.8); ABS Monocytes 0.6 10^3/ul (0-0.8); ABS Neutrophils 4.9 10^3/ul (1.5-7.7); Eosinophil % 0.6 %; Hematocrit 38 % (42-52); Hemoglobin 13.2 g/dL (14.0-18.0); Lymphocyte % 22.4 %; Mean Corpuscular HGB Conc 35 g/dL (31-36); Mean Corpuscular Hemoglobin 31 pg (27-31); Mean Corpuscular Volume 88 fL (80-94); Platelet Count 257 10^3/uL (150-450); Red Blood Count 4.32 10^6 /uL (4.18-5.48); Red Cell Distribution Width 14 % (10-15); White Blood Count 7.3 10^3/uL (3.5-10.8)
[2019-01-11] MEDS: Heparin VIAL(*) 5000 UNITS/ML VIAL (FIVE THOUSAND) SUBCUT SCH ×3 (07:29→21:18)
[2019-01-11] MEDS: Acetaminophen TAB* 325 MG PO PRN ×2 (07:30→21:30)
[2019-01-11] MEDS: Aspirin 81 mg CHEW TAB* 81 MG TAB.CHEW PO SCH (08:31)
[2019-01-11] MEDS ORDERED: amLODIPine TAB* 5 MG PO SCH (09:00)
--- NOTE | 2019-01-11 11:07 | PN ---
Subjective Date of Service: 01/11/19 Interval History: Mr. Pratt is not feeling well today. He still feels very weak. Vision deficits remain unchanged. He ate breakfast this morning and and did not experience any difficulties with swallowing. Denies CP or SOB. No concerns from nursing. Family History: Unchanged from Admission Social History: Unchanged from Admission Past Medical History: Unchanged from Admission Objective Active Medications: Acetaminophen (Tylenol Tab*) 975 mg PO Q8H PRN mild to moderate pain Amlodipine Besylate (Norvasc Tab*) 5 mg PO DAILY [facility] Aspirin (Aspirin 81 Mg Chew Tab*) 81 mg PO DAILY [facility] Atorvastatin Calcium (Lipitor*) 80 mg PO 1700 [facility] Heparin Sodium (Porcine) (Heparin Vial(*)) 5,000 units SUBCUT Q8HR [facility] Labetalol HCl (Trandate Iv*) 10 mg IV PUSH Q6H PRN SBP >220 or DBP >110 Ondansetron HCl (Zofran Inj*) 4 mg IV Q6H PRN NAUSEA Vital Signs - 8 hr 01/11/19 01/11/19 01/11/19 03:15 04:00 07:28 Temperature 97.5 F 98.4 F Pulse Rate 61 63 Respiratory 16 16 16 Rate Blood Pressure 193/98 208/145 (mmHg) O2 Sat by Pulse 96 97 Oximetry 01/11/19 08:00 Temperature Pulse Rate Respiratory 16 Rate Blood Pressure (mmHg) O2 Sat by Pulse 96 Oximetry Oxygen Devices in Use Now: Nasal Cannula - 2L Appearance: Middle-aged male sitting in chair in NAD Ears/Nose/Mouth/Throat: Mucous Membranes Moist Neck: NL Appearance and Movements; NL JVP, Trachea Midline Respiratory: Symmetrical Chest Expansion and Respiratory Effort, Clear to Auscultation Cardiovascular: NL Sounds; No Murmurs; No JVD, RRR Abdominal: NL Sounds; No Tenderness; No Distention Neurological: Alert and Oriented x 3 Lines/Tubes/Other Access: Clean, Dry and Intact Peripheral IV Nutrition: Taking PO's Result Diagrams: 01/11/19 06:09 01/10/19 04:35 Assess/Plan/Problems-Billing Assessment: Mr. Pratt is a 68 yo M with PMH of HTN, BPH; who has not seen a provider in 15 years; who presented to the ED with c/o being unable to move and was found to have an acute CVA. - Patient Problems (1) Ischemic cerebrovascular accident (CVA) Code(s): I63.9 - CEREBRAL INFARCTION, UNSPECIFIED Comment: - Presented with generalized weakness, mild right facial droop, right homonymous hemianopsia - CT brain shows right posterior cerebellar infaract - CTA head shows mediastinal lymphadenopathy but no large vessel occlusion - MRI brain shows acute infarcts in right superior cerebellum and left occipital area - TTE unremarkable but ORTIZ shows multiple frond-like mobile masses on the mitral and aortic valves - Appreciate Neuro consult; recommends DAPT - Allow permissive HTN but will start to slowly bring BP down - PT/OT and speech therapy evals - Will need outpatient f/u with Cardiology d/t echo findings (may need TAVR in the future) - Check blood cultures per Neuro - Continue aspirin, atorvastatin; start Plavix per Neuro (2) Hypertension Code(s): I10 - ESSENTIAL (PRIMARY) HYPERTENSION Comment: - SBP up to the 220s on admission, now in 190s - Allow permissive HTN and will start to bring BP down slowly - Continue labetalol PRN; start amlodipine (3) Headache Code(s): R51 - HEADACHE Comment: - Suspect this is secondary to HTN - Continue Tylenol PRN (4) Hyperlipidemia Code(s): E78.5 - HYPERLIPIDEMIA, UNSPECIFIED Comment: - LDL 122 - Continue atorvastatin (5) Mediastinal lymphadenopathy Code(s): R59.0 - LOCALIZED ENLARGED LYMPH NODES Comment: - Incidental finding, noted on CXR and head/neck CTA - Will need outpatient f/u CT chest with contrast for further evaluation (6) DVT prophylaxis Code(s): Z29.9 - ENCOUNTER FOR PROPHYLACTIC MEASURES, UNSPECIFIED Comment: - SCDs (7) Full code status Code(s): Z78.9 - OTHER SPECIFIED HEALTH STATUS Comment: Status and Disposition: Inpatient. Anticipate d/c to [facility] when medically stable. PMRU referral placed. Attending: Fabricio Bates
[2019-01-11] MEDS: Clopidogrel TAB* 75 MG PO SCH (12:12)
--- NOTE | 2019-01-11 17:19 | PN ---
Subjective Date of Service: 01/11/19 Length of Stay: 2 Days Neurology is following for stroke. Interval History: He is up in a chair feeling well. He still has significant deficits with visual field cut on the right and right sided ataxia. He is watching television. He tolerated the ORTIZ well. He denied any headaches, visual disturbance, swallowing difficulty, or new weakness. Labs, imaging, and other diagnostic testing: Cholesterol: 205 LDL 138 Glucose: 102 CT Head without contrast 01/09/2019: hypodensity in the right cerebellum and left occipital lobe consistent with a right SCA and left [place] ischemic infarction. CTA head and neck 01/09/2019: No evidence of large vessel occlusion. No branch occlusion or dissection seen. MRI brain without contrast: acute infarct involving the right superior cerebellar and left [place] vascular territories. Transthoracic Echo 01/09/2019: Image quality was fair. LVEF: 60-65%. No PFO. Normal left atrium. Aortic valve: bicuspid morphology cannot be excluded, leaflets are moderately thickened, consistent with moderate stenosis. No significant regurgitation. ORTIZ 01/10/2019: Bicuspid aortic valve. Moderately thickened leaflets. There are small, frond-like masses on the left ventricular aspects. 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 Review of Systems: Denied CP, SOB, or palpitations. Family History: Unchanged from Admission Social History: Unchanged from Admission Past Medical History: Unchanged from Admission Objective Active Medications: Acetaminophen (Tylenol Tab*) 975 mg PO Q8H PRN PRN Reason: mild to moderate pain Last Admin: 01/11/19 07:30 Dose: 975 mg Amlodipine Besylate (Norvasc Tab*) 5 mg PO DAILY [facility] Last Admin: 01/11/19 08:31 Dose: 5 mg Aspirin (Aspirin 81 Mg Chew Tab*) 81 mg PO DAILY [facility] Last Admin: 01/11/19 08:31 Dose: 81 mg Atorvastatin Calcium (Lipitor*) 80 mg PO 1700 [facility] Last Admin: 01/10/19 18:17 Dose: 80 mg Clopidogrel Bisulfate (Plavix Tab*) 75 mg PO DAILY [facility] Last Admin: 01/11/19 12:12 Dose: 75 mg Heparin Sodium (Porcine) (Heparin Vial(*)) 5,000 units SUBCUT Q8HR [facility] Last Admin: 01/11/19 12:12 Dose: 5,000 units Labetalol HCl (Trandate Iv*) 10 mg IV PUSH Q6H PRN PRN Reason: SBP >220 or DBP >110 Ondansetron HCl (Zofran Inj*) 4 mg IV Q6H PRN PRN Reason: NAUSEA Last Admin: 01/10/19 18:17 Dose: 4 mg Vital Signs 01/10/19 01/10/19 01/10/19 19:15 20:00 21:42 Temperature 99.1 F 99.0 F Pulse Rate 71 67 Respiratory 16 16 16 Rate Blood Pressure 178/100 169/93 (mmHg) O2 Sat by Pulse 97 97 96 Oximetry 01/10/19 01/11/19 01/11/19 23:15 00:00 03:15 Temperature 98.2 F 97.5 F Pulse Rate 66 61 Respiratory 16 16 16 Rate Blood Pressure 136/84 193/98 (mmHg) O2 Sat by Pulse 96 96 Oximetry 01/11/19 01/11/19 01/11/19 04:00 07:28 08:00 Temperature 98.4 F Pulse Rate 63 Respiratory 16 16 16 Rate Blood Pressure 208/145 (mmHg) O2 Sat by Pulse 97 96 Oximetry Intake and Output Last 24 Hours 01/09/19 01/10/19 01/11/19 01/12/19 06:59 06:59 06:59 06:59 Intake Total 700 340 120 Output Total 650 1000 Balance 50 -660 120 Weight 230 lb 3.2 oz Intake: IV Fluids 700 100 NS (0.9%) 700 Oral 240 120 Output: Urine 650 1000 Marcum 0 Other: # Voids 0 Oxygen Devices in Use Now: Nasal Cannula - 2L Neurology Exam: General: Well nourished, well developed, and in no acute distress HEENT: Normocephelic/atraumatic, sclera anicteric, mucous membranes moist Neck: Supple Chest: Clear to auscultation bilaterally Cardiovascular: holosystolic murmur. Extremities: No clubbing, cyanosis, or edema Neurological Findings: Awake, alert, and oriented to person, place, and time. Speech: mild dysarthria. Cranial Nerve: PERRL, severe right homonomous hemianopsia. Partial gaze palsy cannot be overcome. Right facial droop. Motor: s/s throughout, proximal and distal extremities x4 tone/bulk normal Sensation: intact to LT/PP bilaterally upper and lower extremities Deep Tendon Reflex: 1+ symmetric in the upper/lower extremities, Babinski - up going on the right. Dysmetria to finger to nose and heel to thomas testing on the right Gait: Deferred due to severe visual disturbance and dysmetria on examination. Result Diagrams: 01/11/19 06:09 01/10/19 04:35 Microbiology and Other Data: Microbiology 01/09/19 14:55 Nasal Screen MRSA (PCR) - Final Nasal Mrsa Not Detected Assessment/Plan Mr. Cain Pratt is a 68-year-old fairly healthy man with no significant medical history except for a heart murmur who presented to [facility] on 01/09/2019 with sudden onset visual disturbance and ataxia. He was found to have multifocal embolic strokes involving the right superior cerebellar artery and left posterior cerebral artery. He was outside the window for IV tPA. There was no large vessel occlusion on the CTA so he was not a candidate for mechanical thrombectomy. NIHSS is still an 8 today. 1. Acute cardio embolic stroke due to the aortic and mitral calcification/ masses - NIHSS 8 2. Nausea related to cerebellar stroke. High risk for aspiration 3. Hypertensive urgency due to stroke 4. Aortic stenosis 5. Dyslipidemia Recommendations: - Start Plavix 75 mg daily. I spoke to Dr. James about these findings on 2018. These calcified vs mass lesions are the likely cause of the patient's embolic strokes. Dr. James requested an outpatient follow-up with him in a few weeks. The patient may need further evaluation at a tertiary center like . Please arrange follow-up with cardiology within 1-2 weeks as he is at a significantly high risk for stroke recurrence. The benefit of DAPT now to prevent an embolic stroke outweigh the risk of hemorrhage. The patient would not be a candidate for cardiac surgery for at least 30 days due to the size of the infarct and risk of worsening his symptoms. There is no indication for endocarditis as he is afebrile and has no leukocytosis. However, I did recommend getting blood cultures just in case as antithrombotic therapy would be contraindicated. According to Dr. James, the masses appear to be composed of calcification. - Aspirin 81 mg daily and atorvastatin 80 mg nightly. - We can start slowly lowering his BP. Increase Norvasc or start an SERVANDO inhibitor. - The patient will benefit from rehabilitation. - Stroke education completed - He will need rehabilitation - I will continue to follow - DVT prophylaxis: PCD and heparin 5,000 units subcutaneously every 8 hours. .
[2019-01-11] MEDS: Atorvastatin* 80 MG TAB PO SCH (18:16)
[2019-01-12] MEDS: Heparin VIAL(*) 5000 UNITS/ML VIAL (FIVE THOUSAND) SUBCUT SCH ×3 (05:22→21:04)
[2019-01-12] MEDS: Clopidogrel TAB* 75 MG PO SCH (09:19)
[2019-01-12] MEDS: Ondansetron INJ* 2 MG/ML VIAL IV PRN (09:19)
[2019-01-12] MEDS: amLODIPine TAB* 5 MG PO SCH (09:19)
[2019-01-12] MEDS: Aspirin 81 mg CHEW TAB* 81 MG TAB.CHEW PO SCH (09:19)
--- NOTE | 2019-01-12 11:29 | PN ---
Subjective Date of Service: 01/12/19 Interval History: Patient remains with nausea, dizziness, and visual field cut. Patient states these may have gotten slightly better, but are not significantly improved. Patient denies CP, dysphagia, Cough, SOB, diarrhea, abdominal pain, dysuria, or other pain. Family History: Unchanged from Admission Social History: Unchanged from Admission Past Medical History: Unchanged from Admission Objective Active Medications: Acetaminophen (Tylenol Tab*) 975 mg PO Q8H PRN PRN Reason: mild to moderate pain Last Admin: 01/11/19 21:30 Dose: 975 mg Amlodipine Besylate (Norvasc Tab*) 10 mg PO DAILY [facility] Last Admin: 01/12/19 09:19 Dose: 10 mg Aspirin (Aspirin 81 Mg Chew Tab*) 81 mg PO DAILY [facility] Last Admin: 01/12/19 09:19 Dose: 81 mg Atorvastatin Calcium (Lipitor*) 80 mg PO 1700 [facility] Last Admin: 01/11/19 18:16 Dose: 80 mg Clopidogrel Bisulfate (Plavix Tab*) 75 mg PO DAILY [facility] Last Admin: 01/12/19 09:19 Dose: 75 mg Heparin Sodium (Porcine) (Heparin Vial(*)) 5,000 units SUBCUT Q8HR [facility] Last Admin: 01/12/19 05:22 Dose: 5,000 units Labetalol HCl (Trandate Iv*) 10 mg IV PUSH Q6H PRN PRN Reason: SBP >220 or DBP >110 Ondansetron HCl (Zofran Inj*) 4 mg IV Q6H PRN PRN Reason: NAUSEA Last Admin: 01/12/19 09:19 Dose: 4 mg Vital Signs - 8 hr 01/12/19 01/12/19 01/12/19 04:00 04:14 05:27 Temperature 98.7 F Pulse Rate 55 Respiratory 16 16 Rate Blood Pressure 196/110 210/108 (mmHg) O2 Sat by Pulse 93 Oximetry 01/12/19 01/12/19 07:15 07:16 Temperature 98.3 F Pulse Rate 58 Respiratory 20 16 Rate Blood Pressure 185/102 (mmHg) O2 Sat by Pulse 95 Oximetry Oxygen Devices in Use Now: None Appearance: Patient is a 68yo male who appears stated age and is sitting in the bed in [facility]. Eyes: No Scleral Icterus, PERRLA Ears/Nose/Mouth/Throat: NL Teeth, Lips, Gums, Clear Oropharnyx, Mucous Membranes Moist Neck: NL Appearance and Movements; NL JVP, Trachea Midline Respiratory: Symmetrical Chest Expansion and Respiratory Effort, Clear to Auscultation Cardiovascular: NL Sounds; No Murmurs; No JVD, RRR, No Edema Abdominal: NL Sounds; No Tenderness; No Distention, No Hepatosplenomegaly Lymphatic: No Cervical Adenopathy Extremities: No Edema, No Clubbing, Cyanosis Skin: No Rash or Ulcers, No Nodules or Sclerosis Neurological: Alert and Oriented x 3, - - Right handed dysmetria, Homonymous hemianopia on the right. CN II-XII otherwise intact. Result Diagrams: 01/11/19 06:09 01/10/19 04:35 Microbiology and Other Data: Microbiology 01/09/19 14:55 Nasal Screen MRSA (PCR) - Final Nasal Mrsa Not Detected Assess/Plan/Problems-Billing Assessment: Mr. Pratt is a 68 yo M with PMH of HTN, BPH; who has not seen a provider in 15 years; who presented to the ED with c/o being unable to move and was found to have an acute CVA of likely embolic source. - Patient Problems (1) Ischemic cerebrovascular accident (CVA) Current Visit: Yes Status: Acute Code(s): I63.9 - CEREBRAL INFARCTION, UNSPECIFIED SNOMED Code(s): 919650360 Comment: - Presented with generalized weakness, mild right facial droop, right homonymous hemianopsia - CT brain shows right posterior cerebellar infaract - CTA head shows no large vessel occlusion - MRI brain shows acute infarcts in right superior cerebellum and left occipital area - TTE unremarkable but ORTIZ shows multiple frond-like mobile masses on the mitral and aortic valves which are the likely embolic source, may need full anticoagulation at some point. - Appreciate Neuro consult; recommends DAPT - Allow permissive HTN but will start to slowly bring BP down - PT/OT and speech therapy evals - Will need outpatient f/u with Cardiology d/t echo findings (may need TAVR in the future) - Check blood cultures per Neuro - Continue aspirin, atorvastatin; start Plavix per Neuro (2) Headache Current Visit: Yes Status: Acute Code(s): R51 - HEADACHE SNOMED Code(s): 38592276 Comment: - Suspect this is secondary to HTN - Continue Tylenol PRN and BP control. (3) Hyperlipidemia Current Visit: Yes Status: Acute Code(s): E78.5 - HYPERLIPIDEMIA, UNSPECIFIED SNOMED Code(s): 19193387 Comment: - LDL 122 - Continue atorvastatin high dose. (4) Hypertension Current Visit: Yes Status: Acute Code(s): I10 - ESSENTIAL (PRIMARY) HYPERTENSION SNOMED Code(s): 95504923 Comment: - SBP up to the 220s on admission, now in 190s - Treat to goal at this time - Continue labetalol PRN; Increase Amlodipine, start lisinopril if indicated. (5) Mediastinal lymphadenopathy Current Visit: Yes Status: Acute Code(s): R59.0 - LOCALIZED ENLARGED LYMPH NODES SNOMED Code(s): 61998569 Comment: - Incidental finding, noted on CXR and head/neck CTA - Will need outpatient f/u CT chest with contrast for further evaluation (6) DVT prophylaxis Current Visit: Yes Status: Acute Code(s): Z29.9 - ENCOUNTER FOR PROPHYLACTIC MEASURES, UNSPECIFIED SNOMED Code(s): 096317831 Comment: - SCDs and Heparin SubQ (7) Full code status Current Visit: Yes Status: Acute Code(s): Z78.9 - OTHER SPECIFIED HEALTH STATUS SNOMED Code(s): 176451214 Comment: Status and Disposition: Inpatient. Anticipate d/c to [facility] when medically stable. PMRU referral placed.
--- NOTE | 2019-01-12 12:38 | PN ---
Subjective Date of Service: 01/12/19 Length of Stay: 3 Days Neurology is following for stroke. Interval History: He was shaving with an electric razor this morning. He was using his left hand. He slept well overnight. He stated that his family is coming to visit him tonight. He has mild 4/10 headaches that are mostly holocephalic and non-radiating. The headaches respond to the current therapy of acetaminophen. The patient's BP is still elevated with the systolic being as high as the 200' s. He is tolerating Plavix, aspirin, and atorvastatin 80 mg nightly. Amlodipine was increased and lisinopril was added today. Labs, imaging, and other diagnostic testing: Cholesterol: 205 LDL 138 Glucose: 102 CT Head without contrast 01/09/2019: hypodensity in the right cerebellum and left occipital lobe consistent with a right SCA and left [employer] ischemic infarction. CTA head and neck 01/09/2019: No evidence of large vessel occlusion. No branch occlusion or dissection seen. MRI brain without contrast: acute infarct involving the right superior cerebellar and left [employer] vascular territories. Transthoracic Echo 01/09/2019: Image quality was fair. LVEF: 60-65%. No PFO. Normal left atrium. Aortic valve: bicuspid morphology cannot be excluded, leaflets are moderately thickened, consistent with moderate stenosis. No significant regurgitation. ORTIZ 01/10/2019: Bicuspid aortic valve. Moderately thickened leaflets. There are small, frond-like masses on the left ventricular aspects. 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 Review of Systems: Denied CP, SOB, or palpitations. Family History: Unchanged from Admission Social History: Unchanged from Admission Past Medical History: Unchanged from Admission Objective Active Medications: Acetaminophen (Tylenol Tab*) 975 mg PO Q8H PRN PRN Reason: mild to moderate pain Last Admin: 01/11/19 21:30 Dose: 975 mg Amlodipine Besylate (Norvasc Tab*) 10 mg PO DAILY [facility] Last Admin: 01/12/19 09:19 Dose: 10 mg Aspirin (Aspirin 81 Mg Chew Tab*) 81 mg PO DAILY [facility] Last Admin: 01/12/19 09:19 Dose: 81 mg Atorvastatin Calcium (Lipitor*) 80 mg PO 1700 [facility] Last Admin: 01/11/19 18:16 Dose: 80 mg Clopidogrel Bisulfate (Plavix Tab*) 75 mg PO DAILY [facility] Last Admin: 01/12/19 09:19 Dose: 75 mg Heparin Sodium (Porcine) (Heparin Vial(*)) 5,000 units SUBCUT Q8HR [facility] Last Admin: 01/12/19 05:22 Dose: 5,000 units Labetalol HCl (Trandate Iv*) 10 mg IV PUSH Q6H PRN PRN Reason: SBP >220 or DBP >110 Last Admin: 01/12/19 11:41 Dose: 10 mg Ondansetron HCl (Zofran Inj*) 4 mg IV Q6H PRN PRN Reason: NAUSEA Last Admin: 01/12/19 09:19 Dose: 4 mg Vital Signs 01/11/19 01/11/19 01/11/19 15:41 16:00 19:26 Temperature 97.7 F 98.0 F Pulse Rate 61 61 Respiratory 17 17 20 Rate Blood Pressure 189/111 186/98 (mmHg) O2 Sat by Pulse 96 95 Oximetry 01/11/19 01/11/19 01/12/19 19:56 23:27 00:00 Temperature 97.6 F Pulse Rate 58 Respiratory 20 18 18 Rate Blood Pressure 171/105 (mmHg) O2 Sat by Pulse 95 96 Oximetry 01/12/19 01/12/19 01/12/19 04:00 04:14 05:27 Temperature 98.7 F Pulse Rate 55 Respiratory 16 16 Rate Blood Pressure 196/110 210/108 (mmHg) O2 Sat by Pulse 93 Oximetry 01/12/19 01/12/19 01/12/19 07:15 07:16 11:15 Temperature 98.3 F 98.3 F Pulse Rate 58 68 Respiratory 20 16 18 Rate Blood Pressure 185/102 191/114 (mmHg) O2 Sat by Pulse 95 97 Oximetry Intake and Output Last 24 Hours 01/10/19 01/11/19 01/12/19 01/13/19 06:59 06:59 06:59 06:59 Intake Total 700 340 590 120 Output Total 650 1000 525 Balance 50 -660 65 120 Weight 230 lb 3.2 oz Intake: IV Fluids 700 100 NS (0.9%) 700 Oral 240 590 120 Output: Urine 650 1000 525 Marcum 0 Other: # Voids 0 Oxygen Devices in Use Now: None Neurology Exam: General: Well nourished, well developed, and in no acute distress HEENT: Normocephelic/atraumatic, sclera anicteric, mucous membranes moist Neck: Supple Extremities: No clubbing, cyanosis, or edema Neurological Findings: Awake, alert, and oriented to person, place, and time. Speech: mild dysarthria. Cranial Nerve: PERRL, severe right homonomous hemianopsia. Partial gaze palsy cannot be overcome. Right facial droop. Motor: s/s throughout, proximal and distal extremities x4 tone/bulk normal Sensation: intact to LT/PP bilaterally upper and lower extremities Deep Tendon Reflex: 1+ symmetric in the upper/lower extremities, Babinski - up going on the right. Dysmetria to finger to nose and heel to thomas testing on the right Gait: Deferred due to severe visual disturbance and dysmetria on examination. Result Diagrams: 01/11/19 06:09 01/10/19 04:35 Microbiology and Other Data: Microbiology 01/09/19 14:55 Nasal Screen MRSA (PCR) - Final Nasal Mrsa Not Detected Assessment/Plan Mr. Cain Pratt is a 68-year-old fairly healthy man with no significant medical history except for a heart murmur who presented to [facility] on 01/09/2019 with sudden onset visual disturbance and ataxia. He has not seen a physician in 15 years. He was found to have multifocal embolic strokes involving the right superior cerebellar artery and left posterior cerebral artery. He was outside the window for IV tPA. There was no large vessel occlusion on the CTA so he was not a candidate for mechanical thrombectomy. NIHSS is still an 8 today. 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 1. Acute cardio embolic stroke due to the aortic and mitral calcification/ masses - NIHSS 8 2. Nausea and headaches related to cerebellar stroke. 3. Hypertensive urgency due to stroke 4. Aortic stenosis 5. Dyslipidemia Recommendations: - He is tolerating aspirin and Plavix therapy. - I have placed a call to the [facility] Cardiothoracic team to see what further interventions can be done for the patient's valves. Based on a literature review of fibroelastomas, fibrin products causing increase in coagulation is the cause of the stroke. The patient will most likely require anticoagulation therapy eventually (after 10-14 days from the stroke), if that' s the case. Also, I wanted to see if a transfer to their facility, non-urgent , is needed if the patient is a candidate for any cardiac intervention. - We can start slowly lowering his BP. On Norvasc and lisinopril. Please place holding parameters to hold if SBP<140 mmHg - Repeat CT head without contrast tomorrow to assess the evolution of stroke, silent hemorrhage, or hydrocephalus. Also, please obtain STAT CT head without contrast for any neurological changes. - The patient will benefit from rehabilitation. - Continue pain control with acetaminophen - Stroke education completed - I will continue to follow - DVT prophylaxis: PCD and heparin 5,000 units subcutaneously every 8 hours. .
[2019-01-12] MEDS: Lisinopril TAB* 5 MG PO SCH (13:44)
[2019-01-12] MEDS ORDERED: Polyethylene Glycol 3350* 17 GM PACKET PO PRN (14:59)
[2019-01-12] MEDS ORDERED: Senna TAB 8.6 mg* TAB PO PRN (14:59)
[2019-01-12] MEDS: Atorvastatin* 80 MG TAB PO SCH (17:57)
[2019-01-12] MEDS: Docusate CAP* 100 MG PO SCH (21:05)
[2019-01-13] MEDS: Heparin VIAL(*) 5000 UNITS/ML VIAL (FIVE THOUSAND) SUBCUT SCH ×3 (05:07→20:26)
[2019-01-13] MEDS: Aspirin 81 mg CHEW TAB* 81 MG TAB.CHEW PO SCH (09:46)
[2019-01-13] MEDS: Docusate CAP* 100 MG PO SCH ×2 (09:46→20:26)
[2019-01-13] MEDS: amLODIPine TAB* 5 MG PO SCH (09:46)
[2019-01-13] MEDS: Clopidogrel TAB* 75 MG PO SCH (09:46)
[2019-01-13] MEDS: Lisinopril TAB* 5 MG PO SCH (09:46)
--- NOTE | 2019-01-13 12:35 | PN ---
Subjective Date of Service: 01/13/19 Length of Stay: 4 Days Neurology is following for stroke. Interval History: He had an uneventful night. He denied any headaches after his BP came down. He still has significant ataxia (right cerebellar infarct) and hemianopsia on the right (left occipital lobe infarct). He is tolerating the DAPT without any evidence of bruising or epistaxis. He denied any double vision. He still occasionally cover the left eye. He was emotional today when I told him about rehabilitation. He stated that he has always been easily emotional in the past. He is not sad, denied insomnia, and is eager to get better. Labs, imaging, and other diagnostic testing: Cholesterol: 205 LDL 138 Glucose: 102 CRP: 12 CT head without contrast 01/13/2019: hypodensity in the right cerebellum and left occipital lobe consistent with progression of an ischemic infarction without any evidence of hemorrhage or hydrocephalus. CT Head without contrast 01/09/2019: hypodensity in the right cerebellum and left occipital lobe consistent with a right SCA and left [employer] ischemic infarction. CTA head and neck 01/09/2019: No evidence of large vessel occlusion. No branch occlusion or dissection seen. MRI brain without contrast: acute infarct involving the right superior cerebellar and left [employer]LE[employer] vascular territories. Transthoracic Echo 01/09/2019: Image quality was fair. LVEF: 60-65%. No PFO. Normal left atrium. Aortic valve: bicuspid morphology cannot be excluded, leaflets are moderately thickened, consistent with moderate stenosis. No significant regurgitation. ORTIZ 01/10/2019: Bicuspid aortic valve. Moderately thickened leaflets. There are small, frond-like masses on the left ventricular aspects. 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 Review of Systems: Denied CP, SOB, or palpitations. Family History: Unchanged from Admission Social History: Unchanged from Admission Past Medical History: Unchanged from Admission Objective Active Medications: Acetaminophen (Tylenol Tab*) 975 mg PO Q8H PRN PRN Reason: mild to moderate pain Last Admin: 01/11/19 21:30 Dose: 975 mg Amlodipine Besylate (Norvasc Tab*) 10 mg PO DAILY [facility] Aspirin (Aspirin 81 Mg Chew Tab*) 81 mg PO DAILY [facility] Last Admin: 01/13/19 09:46 Dose: 81 mg Atorvastatin Calcium (Lipitor*) 80 mg PO 1700 [facility] Last Admin: 01/12/19 17:57 Dose: 80 mg Clopidogrel Bisulfate (Plavix Tab*) 75 mg PO DAILY [facility] Last Admin: 01/13/19 09:46 Dose: 75 mg Docusate Sodium (Colace Cap*) 100 mg PO BID [facility] Last Admin: 01/13/19 09:46 Dose: 100 mg Heparin Sodium (Porcine) (Heparin Vial(*)) 5,000 units SUBCUT Q8HR [facility] Last Admin: 01/13/19 05:07 Dose: 5,000 units Lisinopril (Prinivil Tab*) 5 mg PO DAILY [facility] Ondansetron HCl (Zofran Inj*) 4 mg IV Q6H PRN PRN Reason: NAUSEA Last Admin: 01/12/19 09:19 Dose: 4 mg Polyethylene Glycol/Electrolytes (Miralax*) 17 gm PO DAILY PRN PRN Reason: CONSTIPATION Senna (Senokot 8.6 Mg Tab*) 1 tab PO BEDTIME PRN PRN Reason: CONSTIPATION Vital Signs 01/12/19 01/12/19 01/12/19 12:32 14:57 15:15 Temperature 98.4 F Pulse Rate 57 65 Respiratory 16 16 Rate Blood Pressure 184/108 167/102 (mmHg) O2 Sat by Pulse 96 Oximetry 01/12/19 01/12/19 01/12/19 19:29 20:00 22:58 Temperature 97.6 F 99.1 F Pulse Rate 57 63 Respiratory 18 18 16 Rate Blood Pressure 157/92 137/71 (mmHg) O2 Sat by Pulse 95 95 94 Oximetry 01/13/19 01/13/19 01/13/19 03:16 07:15 08:00 Temperature 98.8 F 98.3 F Pulse Rate 57 63 Respiratory 12 18 18 Rate Blood Pressure 140/83 178/100 (mmHg) O2 Sat by Pulse 94 92 Oximetry Intake and Output Last 24 Hours 01/11/19 01/12/19 01/13/19 01/14/19 06:59 06:59 06:59 06:59 Intake Total 340 590 840 240 Output Total 4625 089 5871 Balance -660 65 -910 240 Intake: IV Fluids 100 Oral 240 590 840 240 Output: Urine 1196 996 [id number] Marcum 0 Oxygen Devices in Use Now: None Neurology Exam: General: Well nourished, well developed, and in no acute distress. He was sitting and looking towards the right side with his head turned towards the right. HEENT: Normocephelic/atraumatic, sclera anicteric, mucous membranes moist Neck: Supple Chest: Clear to auscultation bilaterally Cardiovascular: holosystolic murmur. Extremities: No clubbing, cyanosis, or edema Neurological Findings: NIHSS: 4 ( partial gaze palsy can be overcome (1), hemianopsia (2), limb ataxia (1)) Awake, alert, and oriented to person, place, and time. Speech: dysarthria resolved. Cranial Nerve: PERRL, severe right homonomous hemianopsia. Gaze palsy but can minimally overcome towards the right. Facial droop has improved. Motor: s/s throughout, proximal and distal extremities x4 tone/bulk normal Sensation: intact to LT/PP bilaterally upper and lower extremities Deep Tendon Reflex: 1+ symmetric in the upper/lower extremities, Babinski - up going on the right. Dysmetria to HTS but he was extra careful and precise to finger to nose on the right today. Gait: Deferred due to severe visual disturbance and dysmetria on examination. Result Diagrams: 01/11/19 06:09 01/10/19 04:35 Microbiology and Other Data: Microbiology 01/09/19 14:55 Nasal Screen MRSA (PCR) - Final Nasal Mrsa Not Detected Assessment/Plan Mr. Cain Pratt is a 68-year-old fairly healthy man with no significant medical history except for a heart murmur who [place] [facility] with sudden onset visual disturbance and ataxia. He has not seen a physician in 15 years. He was found to have multifocal embolic strokes involving the right superior cerebellar artery and left posterior cerebral artery. He was outside the window for IV tPA. There was no large vessel occlusion on the CTA so he was not a candidate for mechanical thrombectomy. NIHSS is 4 today for improvement in the dysmetria to FTN on the right, dysarthria, and can overcome the gaze palsy towards the right. NIHSS improved from a score of 8. 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 1. Acute cardio embolic stroke due to the aortic and mitral calcification/ masses - NIHSS 4 today 2. Nausea and headaches related to cerebellar stroke- Slowly improving. Patient denied headaches today. 3. Hypertensive urgency due to stroke- improved overnight. 4. Bicuspid aortic valve and Aortic stenosis 5. 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 6. Dyslipidemia I had a long discussion with Dr. Chevy Barker (cardiac cloth examiner machine) from the [facility] on 01/12/2019 and again on 01/13/2019. Dr. Barker discussed the case with the on-call cardiothoracic surgeon at . From their discussion, and after review of the literature, the consensus was that the patient will require surgery to remove the masses or to replace the valves. However, this is a major surgery and should be considered 4-6 weeks after an adequate time for stroke recovery. The surgeons would also want to review the ORTIZ results and rule out other potential causes such as endocarditis or antiphospholipid antibody syndrome. In terms of antithrombotic therapy, I discussed this with our cardiology group and Dr. Barker. Some literature support anticoagulation + anti-platelet therapy and others recommend anti-platelet therapy alone. An article in the [facility] journal discussing papillary fibroelastoma (Serafin Torres, et. al.) reported "there was no significant difference in stroke risk among those treated with anticoagulation or antiplatelet agents." The bottom line is these patient's need evaluation by cardiothoracic surgery to decide on surgical vs. conservative medical management approach. Recommendations: - He is tolerating aspirin and Plavix therapy. Defer the duration of DAPT to the primary team/cardiology, but he needs at least 21 days of DAPT from the neurology standpoint. He has no evidence of hemorrhagic conversion on CT. - BP management: On Norvasc and lisinopril. Please make sure his SBP does not drop below 120 mmHg. - The patient will benefit from acute rehabilitation. - Monitor for post-stroke depression and start an SSRI if indicated - Pending ESR, anticardiolipin antibody, SERA, anti-B2 glycoprotein, and lupus anticoagulant - Stroke education completed - Please make sure he has a cardiology follow-up before discharge to rehab. I will arrange a follow-up with neurology in 3-4 weeks. - DVT prophylaxis: PCD and heparin 5,000 units subcutaneously every 8 hours. Please contact us for any questions. I will sign out the case to Dr. Mix but will not ask him to see the patient unless the patient develops new neurological symptoms.
--- NOTE | 2019-01-13 14:27 | PN ---
Subjective Date of Service: 01/13/19 Interval History: Patient feels well. Patient states his dizziness and nausea are somewhat improved. Patient denies other change in his neurological deficits. Patient denies CP, SOB, Dizziness, abdominal pain, dysuria, or other pain. Family History: Unchanged from Admission Social History: Unchanged from Admission Past Medical History: Unchanged from Admission Objective Active Medications: Acetaminophen (Tylenol Tab*) 975 mg PO Q8H PRN PRN Reason: mild to moderate pain Last Admin: 01/11/19 21:30 Dose: 975 mg Amlodipine Besylate (Norvasc Tab*) 10 mg PO DAILY [facility] Aspirin (Aspirin 81 Mg Chew Tab*) 81 mg PO DAILY [facility] Last Admin: 01/13/19 09:46 Dose: 81 mg Atorvastatin Calcium (Lipitor*) 80 mg PO 1700 [facility] Last Admin: 01/12/19 17:57 Dose: 80 mg Clopidogrel Bisulfate (Plavix Tab*) 75 mg PO DAILY [facility] Last Admin: 01/13/19 09:46 Dose: 75 mg Docusate Sodium (Colace Cap*) 100 mg PO BID [facility] Last Admin: 01/13/19 09:46 Dose: 100 mg Heparin Sodium (Porcine) (Heparin Vial(*)) 5,000 units SUBCUT Q8HR [facility] Last Admin: 01/13/19 05:07 Dose: 5,000 units Lisinopril (Prinivil Tab*) 5 mg PO DAILY [facility] Ondansetron HCl (Zofran Inj*) 4 mg IV Q6H PRN PRN Reason: NAUSEA Last Admin: 01/12/19 09:19 Dose: 4 mg Polyethylene Glycol/Electrolytes (Miralax*) 17 gm PO DAILY PRN PRN Reason: CONSTIPATION Senna (Senokot 8.6 Mg Tab*) 1 tab PO BEDTIME PRN PRN Reason: CONSTIPATION Vital Signs - 8 hr 01/13/19 01/13/19 01/13/19 07:15 08:00 11:15 Temperature 98.3 F 98.1 F Pulse Rate 63 57 Respiratory 18 18 18 Rate Blood Pressure 178/100 158/89 (mmHg) O2 Sat by Pulse 92 96 Oximetry Oxygen Devices in Use Now: None Appearance: Patient is a 68yo male who appears stated age and is sitting in the bed in [facility]. Eyes: No Scleral Icterus, PERRLA Ears/Nose/Mouth/Throat: NL Teeth, Lips, Gums, Clear Oropharnyx, Mucous Membranes Moist Neck: NL Appearance and Movements; NL JVP, Trachea Midline Respiratory: Symmetrical Chest Expansion and Respiratory Effort, Clear to Auscultation Cardiovascular: NL Sounds; No Murmurs; No JVD, RRR, No Edema Abdominal: NL Sounds; No Tenderness; No Distention, No Hepatosplenomegaly Lymphatic: No Cervical Adenopathy Extremities: No Edema, No Clubbing, Cyanosis Skin: No Rash or Ulcers, No Nodules or Sclerosis Neurological: Alert and Oriented x 3, - - Stable Homonymus Hemianopia, Right hand dysmetria. Result Diagrams: 01/11/19 06:09 01/10/19 04:35 Microbiology and Other Data: Microbiology 01/09/19 14:55 Nasal Screen MRSA (PCR) - Final Nasal Mrsa Not Detected Assess/Plan/Problems-Billing Assessment: Mr. Pratt is a 68 yo M with PMH of HTN, BPH; who has not seen a provider in 15 years; who presented to the ED with c/o being unable to move and was found to have an acute CVA of likely embolic source. - Patient Problems (1) Ischemic cerebrovascular accident (CVA) Current Visit: Yes Status: Acute Code(s): I63.9 - CEREBRAL INFARCTION, UNSPECIFIED SNOMED Code(s): 532264107 Comment: - Presented with generalized weakness, mild right facial droop, right homonymous hemianopsia - CT brain shows right posterior cerebellar infaract - CTA head shows no large vessel occlusion - MRI brain shows acute infarcts in right superior cerebellum and left occipital area - TTE unremarkable but ORTIZ shows multiple frond-like mobile masses on the mitral and aortic valves which are the likely embolic source - Follow up outpatient cardiothoracic surgery. - Appreciate Neuro consult; recommends DAPT - Start to treat BP to goal - PT/OT and speech therapy evals - Will need outpatient f/u with Cardiology d/t echo findings (may need valve replacement in the future) - Check blood cultures per Neuro, NTD - Continue aspirin, atorvastatin, start Plavix per Neuro Continue at least 21 days. (2) Headache Current Visit: Yes Status: Acute Code(s): R51 - HEADACHE SNOMED Code(s): 03414820 Comment: - Suspect this is secondary to HTN - Continue Tylenol PRN and BP control. (3) Hyperlipidemia Current Visit: Yes Status: Acute Code(s): E78.5 - HYPERLIPIDEMIA, UNSPECIFIED SNOMED Code(s): 52715230 Comment: - LDL 122 - Continue atorvastatin high dose. (4) Hypertension Current Visit: Yes Status: Acute Code(s): I10 - ESSENTIAL (PRIMARY) HYPERTENSION SNOMED Code(s): 32424755 Comment: - SBP up to the 220s on admission, Improving control. - Treat to goal at this time - Continue Amlodipine and Lisinopril. (5) Mediastinal lymphadenopathy Current Visit: Yes Status: Acute Code(s): R59.0 - LOCALIZED ENLARGED LYMPH NODES SNOMED Code(s): 96894125 Comment: - Incidental finding, noted on CXR and head/neck CTA - Will need outpatient f/u CT chest with contrast for further evaluation (6) DVT prophylaxis Current Visit: Yes Status: Acute Code(s): Z29.9 - ENCOUNTER FOR PROPHYLACTIC MEASURES, UNSPECIFIED SNOMED Code(s): 145555475 Comment: - SCDs and Heparin SubQ (7) Full code status Current Visit: Yes Status: Acute Code(s): Z78.9 - OTHER SPECIFIED HEALTH STATUS SNOMED Code(s): 235663371 Comment: Status and Disposition: Inpatient. Anticipate d/c to [facility] when medically stable. PMRU referral placed.
[2019-01-13] MEDS: Atorvastatin* 80 MG TAB PO SCH (17:49)
[2019-01-14] MEDS: Heparin VIAL(*) 5000 UNITS/ML VIAL (FIVE THOUSAND) SUBCUT SCH ×3 (05:03→22:54)
[2019-01-14] MEDS ORDERED: Lisinopril TAB* 5 MG PO SCH (09:00)
[2019-01-14] MEDS: amLODIPine TAB* 5 MG PO SCH (09:05)
[2019-01-14] MEDS: Docusate CAP* 100 MG PO SCH ×2 (09:05→22:54)
[2019-01-14] MEDS: Lisinopril TAB* 5 MG PO SCH (09:05)
[2019-01-14] MEDS: Aspirin 81 mg CHEW TAB* 81 MG TAB.CHEW PO SCH (09:06)
[2019-01-14] MEDS: Clopidogrel TAB* 75 MG PO SCH (09:06)
--- NOTE | 2019-01-14 14:21 | PN ---
Subjective Date of Service: 01/14/19 Interval History: Patient continues to have minor headache and minor nausea, both of which are responsive to medications. Patient denies any changes to his vision or neurologic status. Patient was able to walk 30 feet yesterday. Patient denies F/ C, abdominal pain, dysuria, or other pain. Family History: Unchanged from Admission Social History: Unchanged from Admission Past Medical History: Unchanged from Admission Objective Active Medications: Acetaminophen (Tylenol Tab*) 975 mg PO Q8H PRN PRN Reason: mild to moderate pain Last Admin: 01/11/19 21:30 Dose: 975 mg Amlodipine Besylate (Norvasc Tab*) 10 mg PO DAILY [facility] Last Admin: 01/14/19 09:05 Dose: 10 mg Aspirin (Aspirin 81 Mg Chew Tab*) 81 mg PO DAILY [facility] Last Admin: 01/14/19 09:06 Dose: 81 mg Atorvastatin Calcium (Lipitor*) 80 mg PO 1700 [facility] Last Admin: 01/13/19 17:49 Dose: 80 mg Clopidogrel Bisulfate (Plavix Tab*) 75 mg PO DAILY [facility] Last Admin: 01/14/19 09:06 Dose: 75 mg Docusate Sodium (Colace Cap*) 100 mg PO BID [facility] Last Admin: 01/14/19 09:05 Dose: 100 mg Heparin Sodium (Porcine) (Heparin Vial(*)) 5,000 units SUBCUT Q8HR [facility] Last Admin: 01/14/19 05:03 Dose: 5,000 units Lisinopril (Prinivil Tab*) 10 mg PO DAILY [facility] Last Admin: 01/14/19 09:05 Dose: 10 mg Ondansetron HCl (Zofran Inj*) 4 mg IV Q6H PRN PRN Reason: NAUSEA Last Admin: 01/12/19 09:19 Dose: 4 mg Polyethylene Glycol/Electrolytes (Miralax*) 17 gm PO DAILY PRN PRN Reason: CONSTIPATION Last Admin: 01/14/19 13:24 Dose: 17 gm Senna (Senokot 8.6 Mg Tab*) 1 tab PO BEDTIME PRN PRN Reason: CONSTIPATION Last Admin: 01/14/19 13:24 Dose: 1 tab Vital Signs - 8 hr 01/14/19 01/14/19 01/14/19 07:25 08:00 11:15 Temperature 97.4 F 97.4 F Pulse Rate 57 57 Respiratory 20 20 20 Rate Blood Pressure 145/80 145/80 (mmHg) O2 Sat by Pulse 97 97 Oximetry Oxygen Devices in Use Now: None Appearance: Patient is a 68yo male who appears stated age and is sitting in the bed in NAD. Eyes: No Scleral Icterus, PERRLA Ears/Nose/Mouth/Throat: NL Teeth, Lips, Gums, Clear Oropharnyx, Mucous Membranes Moist Neck: NL Appearance and Movements; NL JVP Respiratory: Symmetrical Chest Expansion and Respiratory Effort, Clear to Auscultation Cardiovascular: NL Sounds; No Murmurs; No JVD, RRR, No Edema Abdominal: NL Sounds; No Tenderness; No Distention, No Hepatosplenomegaly Lymphatic: No Cervical Adenopathy Extremities: No Edema, No Clubbing, Cyanosis Skin: No Rash or Ulcers, No Nodules or Sclerosis Neurological: Alert and Oriented x 3, - - Stable neurological deficits. Result Diagrams: 01/11/19 06:09 01/10/19 04:35 Microbiology and Other Data: Microbiology 01/09/19 14:55 Nasal Screen MRSA (PCR) - Final Nasal Mrsa Not Detected Assess/Plan/Problems-Billing Assessment: Mr. Pratt is a 68 yo M with PMH of HTN, BPH; who has not seen a provider in 15 years; who presented to the ED with c/o being unable to move and was found to have an acute CVA of likely embolic source. - Patient Problems (1) Ischemic cerebrovascular accident (CVA) Current Visit: Yes Status: Acute Code(s): I63.9 - CEREBRAL INFARCTION, UNSPECIFIED SNOMED Code(s): 722026646 Comment: - Presented with generalized weakness, mild right facial droop, right homonymous hemianopsia - CT brain shows right posterior cerebellar infaract - CTA head shows no large vessel occlusion - MRI brain shows acute infarcts in right superior cerebellum and left occipital area - TTE unremarkable but ORTIZ shows multiple frond-like mobile masses on the mitral and aortic valves which are the likely embolic source - Follow up outpatient cardiothoracic surgery in 4-6 weeks. - Appreciate Neuro consult; recommends DAPT - Start to treat BP to goal - PT/OT and speech therapy evals - Will need outpatient f/u with Cardiology d/t echo findings (may need valve replacement in the future) - Check blood cultures per Neuro, NTD - Continue aspirin, atorvastatin, start Plavix per Neuro Continue at least 21 days. - PMRU referral placed. (2) Headache Current Visit: Yes Status: Acute Code(s): R51 - HEADACHE SNOMED Code(s): 97822971 Comment: - Suspect this is secondary to HTN - Continue Tylenol PRN and BP control. (3) Hyperlipidemia Current Visit: Yes Status: Acute Code(s): E78.5 - HYPERLIPIDEMIA, UNSPECIFIED SNOMED Code(s): 56495404 Comment: - LDL 122 - Continue atorvastatin high dose. (4) Hypertension Current Visit: Yes Status: Acute Code(s): I10 - ESSENTIAL (PRIMARY) HYPERTENSION SNOMED Code(s): 21615945 Comment: - SBP up to the 220s on admission, Improving control. - Treat to goal at this time - Continue Amlodipine and increase Lisinopril. - Avoid hypotension (5) Mediastinal lymphadenopathy Current Visit: Yes Status: Acute Code(s): R59.0 - LOCALIZED ENLARGED LYMPH NODES SNOMED Code(s): 95942771 Comment: - Incidental finding, noted on CXR and head/neck CTA - Will need outpatient f/u CT chest with contrast for further evaluation (6) DVT prophylaxis Current Visit: Yes Status: Acute Code(s): Z29.9 - ENCOUNTER FOR PROPHYLACTIC MEASURES, UNSPECIFIED SNOMED Code(s): 200578558 Comment: - SCDs and Heparin SubQ (7) Full code status Current Visit: Yes Status: Acute Code(s): Z78.9 - OTHER SPECIFIED HEALTH STATUS SNOMED Code(s): 104651708 Comment: Status and Disposition: Inpatient. Anticipate d/c to [facility] when medically stable. PMRU referral placed.
[2019-01-14] MEDS: Atorvastatin* 80 MG TAB PO SCH (17:49)
[2019-01-14] MEDS: Ondansetron INJ* 2 MG/ML VIAL IV PRN (23:12)
[2019-01-15] MEDS ORDERED: Senna TAB 8.6 mg* TAB PO PRN (04:20)
[2019-01-15] MEDS ORDERED: Magnesium Hydroxide LIQ* 30 ML UDC PO PRN (04:20)
[2019-01-15] MEDS ORDERED: Polyethylene Glycol 3350* 17 GM PACKET PO PRN (04:20)
[2019-01-15] MEDS: Heparin VIAL(*) 5000 UNITS/ML VIAL (FIVE THOUSAND) SUBCUT SCH ×3 (05:57→20:22)
[2019-01-15] MEDS: Ondansetron INJ* 2 MG/ML VIAL IV PRN (05:58)
[2019-01-15] MEDS: Docusate CAP* 100 MG PO SCH ×2 (08:58→20:22)
[2019-01-15] MEDS: amLODIPine TAB* 5 MG PO SCH (08:58)
[2019-01-15] MEDS: Clopidogrel TAB* 75 MG PO SCH (08:58)
[2019-01-15] MEDS: Aspirin 81 mg CHEW TAB* 81 MG TAB.CHEW PO SCH (08:58)
[2019-01-15] MEDS: Lisinopril TAB* 5 MG PO SCH (08:58)
[2019-01-15] MEDS: Magnesium Hydroxide LIQ* 30 ML UDC PO SCH ×2 (08:59→20:22)
[2019-01-15] MEDS ORDERED: Docusate CAP* 100 MG PO SCH (09:00)
--- NOTE | 2019-01-15 09:49 | PN ---
Subjective Date of Service: 01/15/19 Interval History: Patient is feeling well today. Patient had one episode of emesis overnight and is still slightly nauseated, but states his headache is gone and that he feels good ambulating, though slightly unsteady. Patient denies any other changes in his neurological deficits. Family History: Unchanged from Admission Social History: Unchanged from Admission Past Medical History: Unchanged from Admission Objective Active Medications: Acetaminophen (Tylenol Tab*) 975 mg PO Q8H PRN PRN Reason: mild to moderate pain Last Admin: 01/11/19 21:30 Dose: 975 mg Amlodipine Besylate (Norvasc Tab*) 10 mg PO DAILY [facility] Last Admin: 01/15/19 08:58 Dose: 10 mg Aspirin (Aspirin 81 Mg Chew Tab*) 81 mg PO DAILY [facility] Last Admin: 01/15/19 08:58 Dose: 81 mg Atorvastatin Calcium (Lipitor*) 80 mg PO 1700 [facility] Last Admin: 01/14/19 17:49 Dose: 80 mg Clopidogrel Bisulfate (Plavix Tab*) 75 mg PO DAILY [facility] Last Admin: 01/15/19 08:58 Dose: 75 mg Docusate Sodium (Colace Cap*) 100 mg PO BID [facility] Last Admin: 01/15/19 08:58 Dose: 100 mg Heparin Sodium (Porcine) (Heparin Vial(*)) 5,000 units SUBCUT Q8HR [facility] Last Admin: 01/15/19 05:57 Dose: 5,000 units Lisinopril (Prinivil Tab*) 10 mg PO DAILY [facility] Last Admin: 01/15/19 08:58 Dose: 10 mg Magnesium Hydroxide (Milk Of Magnesia Liq*) 30 ml PO BID [facility] Last Admin: 01/15/19 08:59 Dose: 30 ml Magnesium Hydroxide (Milk Of Magnesia Liq*) 30 ml PO BID PRN PRN Reason: CONSTIPATION Last Admin: 01/15/19 06:02 Dose: 30 ml Ondansetron HCl (Zofran Inj*) 4 mg IV Q6H PRN PRN Reason: NAUSEA Last Admin: 01/15/19 05:58 Dose: 4 mg Polyethylene Glycol/Electrolytes (Miralax*) 17 gm PO DAILY PRN PRN Reason: CONSTIPATION Last Admin: 01/14/19 13:24 Dose: 17 gm Senna (Senokot 8.6 Mg Tab*) 1 tab PO BEDTIME PRN PRN Reason: CONSTIPATION Last Admin: 01/15/19 06:02 Dose: 1 tab Vital Signs - 8 hr 01/15/19 01/15/19 03:15 07:53 Temperature 97.8 F Pulse Rate 77 Respiratory 16 17 Rate Blood Pressure 120/51 (mmHg) O2 Sat by Pulse 97 Oximetry Oxygen Devices in Use Now: None Appearance: Patient is a 68yo male who appears stated age and is sitting in the bed in NAD. Eyes: No Scleral Icterus, PERRLA Ears/Nose/Mouth/Throat: NL Teeth, Lips, Gums, Clear Oropharnyx, Mucous Membranes Moist Neck: NL Appearance and Movements; NL JVP, Trachea Midline Respiratory: Symmetrical Chest Expansion and Respiratory Effort, Clear to Auscultation Cardiovascular: RRR, No Edema, - - Grade 2/6 ISA heard best at RUSB. Abdominal: NL Sounds; No Tenderness; No Distention, No Hepatosplenomegaly Lymphatic: No Cervical Adenopathy Extremities: No Edema, No Clubbing, Cyanosis Skin: No Rash or Ulcers, No Nodules or Sclerosis Neurological: Alert and Oriented x 3, - - Visual Field Cut, Right hand ataxia. Result Diagrams: 01/11/19 06:09 01/10/19 04:35 Microbiology and Other Data: Microbiology 01/09/19 14:55 Nasal Screen MRSA (PCR) - Final Nasal Mrsa Not Detected Assess/Plan/Problems-Billing Assessment: Mr. Pratt is a 68 yo M with PMH of HTN, BPH; who has not seen a provider in 15 years; who presented to the ED with c/o being unable to move and was found to have an acute CVA of likely embolic source. - Patient Problems (1) Ischemic cerebrovascular accident (CVA) Current Visit: Yes Status: Acute Code(s): I63.9 - CEREBRAL INFARCTION, UNSPECIFIED SNOMED Code(s): 571318100 Comment: - Presented with generalized weakness, mild right facial droop, right homonymous hemianopsia - CT brain shows right posterior cerebellar infaract - CTA head shows no large vessel occlusion - MRI brain shows acute infarcts in right superior cerebellum and left occipital area - TTE unremarkable but ORTIZ shows multiple frond-like mobile masses on the mitral and aortic valves which are the likely embolic source - Follow up outpatient cardiothoracic surgery in 4-6 weeks. - Appreciate Neuro consult; recommends DAPT - Start to treat BP to goal - PT/OT and speech therapy evals - Will need outpatient f/u with Cardiology d/t echo findings (may need valve replacement in the future) - Check blood cultures per Neuro, NTD - Continue aspirin, atorvastatin, start Plavix per Neuro Continue at least 21 days. - PMRU referral placed. - Hypercoagulable workup pending and NTD. (2) Headache Current Visit: Yes Status: Acute Code(s): R51 - HEADACHE SNOMED Code(s): 97803886 Comment: - Suspect this is secondary to HTN - Continue Tylenol PRN and BP control. (3) Hyperlipidemia Current Visit: Yes Status: Acute Code(s): E78.5 - HYPERLIPIDEMIA, UNSPECIFIED SNOMED Code(s): 06873770 Comment: - LDL 122 - Continue atorvastatin high dose. (4) Hypertension Current Visit: Yes Status: Acute Code(s): I10 - ESSENTIAL (PRIMARY) HYPERTENSION SNOMED Code(s): 96340186 Comment: - SBP up to the 220s on admission, Improving control. - Treat to goal at this time - Continue Amlodipine and increase Lisinopril. - Avoid hypotension (5) Mediastinal lymphadenopathy Current Visit: Yes Status: Acute Code(s): R59.0 - LOCALIZED ENLARGED LYMPH NODES SNOMED Code(s): 30035363 Comment: - Incidental finding, noted on CXR and head/neck CTA - Will need outpatient f/u CT chest with contrast for further evaluation (6) DVT prophylaxis Current Visit: Yes Status: Acute Code(s): Z29.9 - ENCOUNTER FOR PROPHYLACTIC MEASURES, UNSPECIFIED SNOMED Code(s): 934745602 Comment: - SCDs and Heparin SubQ (7) Full code status Current Visit: Yes Status: Acute Code(s): Z78.9 - OTHER SPECIFIED HEALTH STATUS SNOMED Code(s): 383644074 Comment: Status and Disposition: Inpatient. Anticipate d/c to [facility] when medically stable. PMRU referral placed. Hopeful D/C tomorrow.
[2019-01-15] MEDS: Atorvastatin* 80 MG TAB PO SCH (16:09)
[2019-01-16] MEDS ORDERED: Mineral Oil, LAXITIVE* 30 ML UDC PO ONE (04:00)
[2019-01-16] MEDS: Heparin VIAL(*) 5000 UNITS/ML VIAL (FIVE THOUSAND) SUBCUT SCH ×3 (05:03→21:32)
[2019-01-16] MEDS: Clopidogrel TAB* 75 MG PO SCH (08:11)
[2019-01-16] MEDS: amLODIPine TAB* 5 MG PO SCH ×2 (08:11→10:24)
[2019-01-16] MEDS: Aspirin 81 mg CHEW TAB* 81 MG TAB.CHEW PO SCH (08:11)
[2019-01-16] MEDS: Lisinopril TAB* 5 MG PO SCH (08:11)
[2019-01-16] MEDS: Docusate CAP* 100 MG PO SCH ×2 (08:11→21:31)
[2019-01-16] MEDS: Magnesium Hydroxide LIQ* 30 ML UDC PO SCH ×2 (08:12→21:31)
[2019-01-16] MEDS ORDERED: Glycerin ADULT SUPP PR PRN (08:42)
[2019-01-16] MEDS: Lisinopril TAB* 10 MG PO SCH (10:24)
[2019-01-16] MEDS ORDERED: Sodium Phosphate ADULT ENEMA* 118 ml bottle PR ONE (11:00)
--- NOTE | 2019-01-16 13:59 | PN ---
Subjective Date of Service: 01/16/19 Interval History: Patient feels better today. Patient has a slight headache and his nausea is almost resolved. Patient still feels unsteady on her feet. Patient denies vomiting, abdominal pain, dysuria, CP, SOB, Palpitations. Family History: Unchanged from Admission Social History: Unchanged from Admission Past Medical History: Unchanged from Admission Objective Active Medications: Acetaminophen (Tylenol Tab*) 975 mg PO Q8H PRN PRN Reason: mild to moderate pain Last Admin: 01/11/19 21:30 Dose: 975 mg Amlodipine Besylate (Norvasc Tab*) 10 mg PO DAILY [facility] Last Admin: 01/16/19 10:24 Dose: 10 mg Aspirin (Aspirin 81 Mg Chew Tab*) 81 mg PO DAILY [facility] Last Admin: 01/16/19 08:11 Dose: 81 mg Atorvastatin Calcium (Lipitor*) 80 mg PO 1700 [facility] Last Admin: 01/15/19 16:09 Dose: 80 mg Clopidogrel Bisulfate (Plavix Tab*) 75 mg PO DAILY [facility] Last Admin: 01/16/19 08:11 Dose: 75 mg Docusate Sodium (Colace Cap*) 100 mg PO BID [facility] Last Admin: 01/16/19 08:11 Dose: 100 mg Glycerin (Glycerin Adult Supp*) 1 supp ME DAILY PRN PRN Reason: CONSTIPATION Heparin Sodium (Porcine) (Heparin Vial(*)) 5,000 units SUBCUT Q8HR [facility] Last Admin: 01/16/19 05:03 Dose: 5,000 units Lisinopril (Prinivil Tab*) 20 mg PO DAILY [facility] Last Admin: 01/16/19 10:24 Dose: 20 mg Magnesium Hydroxide (Milk Of Magnesia Liq*) 30 ml PO BID [facility] Last Admin: 01/16/19 08:12 Dose: 30 ml Magnesium Hydroxide (Milk Of Magnesia Liq*) 30 ml PO BID PRN PRN Reason: CONSTIPATION Last Admin: 01/15/19 06:02 Dose: 30 ml Ondansetron HCl (Zofran Inj*) 4 mg IV Q6H PRN PRN Reason: NAUSEA Last Admin: 01/15/19 05:58 Dose: 4 mg Polyethylene Glycol/Electrolytes (Miralax*) 17 gm PO DAILY PRN PRN Reason: CONSTIPATION Last Admin: 01/14/19 13:24 Dose: 17 gm Senna (Senokot 8.6 Mg Tab*) 1 tab PO BEDTIME PRN PRN Reason: CONSTIPATION Last Admin: 01/15/19 06:02 Dose: 1 tab Vital Signs - 8 hr 01/16/19 01/16/19 01/16/19 07:15 08:00 11:15 Temperature 97.3 F 97.5 F Pulse Rate 61 60 Respiratory 20 20 20 Rate Blood Pressure 151/91 141/78 (mmHg) O2 Sat by Pulse 98 Oximetry Oxygen Devices in Use Now: None Eyes: No Scleral Icterus, PERRLA Ears/Nose/Mouth/Throat: NL Teeth, Lips, Gums, Clear Oropharnyx, Mucous Membranes Moist Neck: NL Appearance and Movements; NL JVP, Trachea Midline Respiratory: Symmetrical Chest Expansion and Respiratory Effort, Clear to Auscultation Cardiovascular: NL Sounds; No Murmurs; No JVD, RRR, No Edema Abdominal: NL Sounds; No Tenderness; No Distention, No Hepatosplenomegaly Lymphatic: No Cervical Adenopathy Extremities: No Edema, No Clubbing, Cyanosis Skin: No Rash or Ulcers, No Nodules or Sclerosis Neurological: Alert and Oriented x 3, - - Homonymous hemianopia, dysmetria, wide based gait. Result Diagrams: 01/11/19 06:09 01/10/19 04:35 Microbiology and Other Data: Microbiology 01/09/19 14:55 Nasal Screen MRSA (PCR) - Final Nasal Mrsa Not Detected Assess/Plan/Problems-Billing Assessment: Mr. Pratt is a 68 yo M with PMH of HTN, BPH; who has not seen a provider in 15 years; who presented to the ED with c/o being unable to move and was found to have an acute CVA of likely embolic source. - Patient Problems (1) Ischemic cerebrovascular accident (CVA) Current Visit: Yes Status: Acute Code(s): I63.9 - CEREBRAL INFARCTION, UNSPECIFIED SNOMED Code(s): 636015160 Comment: - Presented with generalized weakness, mild right facial droop, right homonymous hemianopsia - CT brain shows right posterior cerebellar infaract - CTA head shows no large vessel occlusion - MRI brain shows acute infarcts in right superior cerebellum and left occipital area - TTE unremarkable but ORTIZ shows multiple frond-like mobile masses on the mitral and aortic valves which are the likely embolic source - Follow up outpatient cardiothoracic surgery in 4-6 weeks. - Appreciate Neuro consult; recommends DAPT - Start to treat BP to goal - PT/OT and speech therapy evals - Will need outpatient f/u with Cardiology d/t echo findings (may need valve replacement in the future) - Check blood cultures per Neuro, NTD - Continue aspirin, atorvastatin, start Plavix per Neuro Continue at least 21 days. - PMRU referral placed. - Hypercoagulable workup pending and NTD. (2) Headache Current Visit: Yes Status: Acute Code(s): R51 - HEADACHE SNOMED Code(s): 23873671 Comment: - Suspect this is secondary to HTN - Continue Tylenol PRN and BP control. (3) Hyperlipidemia Current Visit: Yes Status: Acute Code(s): E78.5 - HYPERLIPIDEMIA, UNSPECIFIED SNOMED Code(s): 36780800 Comment: - LDL 122 - Continue atorvastatin high dose. (4) Hypertension Current Visit: Yes Status: Acute Code(s): I10 - ESSENTIAL (PRIMARY) HYPERTENSION SNOMED Code(s): 34743036 Comment: - SBP up to the 220s on admission, Improving control. - Treat to goal at this time - Continue Amlodipine and increase Lisinopril. - Avoid hypotension (5) Mediastinal lymphadenopathy Current Visit: Yes Status: Acute Code(s): R59.0 - LOCALIZED ENLARGED LYMPH NODES SNOMED Code(s): 66654414 Comment: - Incidental finding, noted on CXR and head/neck CTA - Will need outpatient f/u CT chest with contrast for further evaluation (6) DVT prophylaxis Current Visit: Yes Status: Acute Code(s): Z29.9 - ENCOUNTER FOR PROPHYLACTIC MEASURES, UNSPECIFIED SNOMED Code(s): 453315158 Comment: - SCDs and Heparin SubQ (7) Full code status Current Visit: Yes Status: Acute Code(s): Z78.9 - OTHER SPECIFIED HEALTH STATUS SNOMED Code(s): 559432978 Comment: Status and Disposition: Inpatient. Anticipate d/c to [facility] when medically stable. PMRU D/C tomorrow.
[2019-01-16 14:44] LABS: LAC APTT 28 sec (25 - 37); LAC INR 1.1 (0.9-1.1); Prothrombin Time(LAC) 11.8 sec (9.4 - 12.5)
[2019-01-16] MEDS: Atorvastatin* 80 MG TAB PO SCH (17:44)
[2019-01-16 19:14] LABS: Phospholipid Ab IgG < 9.4 GPL
--- NOTE | 2019-01-16 23:36 | DS ---
CC: [facility] * DISCHARGE SUMMARY: DATE OF ADMISSION: 01/09/19 PRESUMED DATE OF DISCHARGE: 01/17/19 PRIMARY CARE PROVIDER: [facility]. MY ATTENDING WHILE IN THE HOSPITAL: Dr. 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 SECONDARY DISCHARGE DIAGNOSES: Benign prostatic hypertrophy, history of alcoholism, aortic stenosis, and mediastinal lymphadenopathy. STUDIES DONE WHILE IN THE HOSPITAL: Brain CT from 01/09/19 read as hypodense area in the right posterior cerebellum, may represent an infarct. No hemorrhages noted. Chest x-ray from 01/09/19 read as diffuse mild prominence of the interstitial markings, mild interstitial edema was not occluded, right paratracheal lymphadenopathy evident based on correlation with CT aortogram of the neck on the same date. Probable additional bilateral hilar adenopathy. Consider CT of the chest with IV contrast for further assessment. Head CTA from 01/09/19 read as no evidence of left large vessel occlusions noted , no branch occlusion identified. Anterior and medial cerebellar arteries are patent. There is mediastinal lymphadenopathy present. Brain MRI from 01/09/19, read as acute infarct involving the right superior cerebellar area as well as left occipital area. Transthoracic echocardiogram from 01/09/19 read as left ventricular systolic function is normal. Estimated ejection fraction is 60% to 65%, wall motion normal, no other regional wall motion abnormalities. Left ventricular systolic function normal. Atrial septum with no defect or PFO. Mitral valve: Trace regurgitation. Aortic valve: Findings consistent with moderate stenosis. There is no significant regurgitation. Peak systolic velocity is 9.1 meter per second, mean systolic gradient is 22 mmHg at the valve area with peak velocity measurement is 1.5 to 1.8 meter squared. Tricuspid valve: There is no significant regurgitation. Pulmonary artery systolic pressure could not be accurately estimated. No studies compared. Transesophageal echocardiogram shows left ventricular systolic function is normal, EF 50% to 55%. Left atrium : No thrombus in the cavity appendage. PFO was not demonstrated by color Doppler or agitated saline contrast. Mitral valve: There are frond-like old masses in the atrial aspect, which is consistent with fibroelastoma. There is trace mild regurgitation. Aortic valve: Valve is bicuspid. The leaflets are mildly thickened. There are small frond-like masses in the left ventricular aspect. There appeared to be a crescent cyst. There was a small calcified old mass in the aortic aspect of the anterior cusp, finding consistent with moderate stenosis. Tricuspid valve: There is no significant regurgitation. Pericardium: There is no significant pericardial effusion. Repeat brain CT from 01/13/19 read as hypodense area of the right superior cerebellum, left occipital lobe with progressing consistent with evolution of infarct, no extension is noted. MEDICATIONS AT DISCHARGE: 1. Tylenol 975 mg p.o. q.8 hours as needed. 2. Amlodipine 10 mg p.o. q.8 hours as needed. 3. Aspirin 81 mg p.o. daily. 4. Lipitor 80 mg p.o. daily. 5. Clopidogrel 75 mg p.o. daily. 6. Docusate 100 mg p.o. b.i.d. 7. Lisinopril 20 mg p.o. daily. 8. Magnesium hydroxide 30 mg p.o. b.i.d. as needed. 9. Zofran 4 mg p.o. q.6 hours as needed. 10. Senna 1 tab p.o. at bedtime as needed. New medications at discharge: All. Medications discontinued at discharge: 1. Ibuprofen 200 p.o. q.6 hours as needed. HOSPITAL COURSE: This is a brief summary of the patient's presentation. For more details, please see the history and physical from DOUGLAS Sharpe, on 01/09/19. In brief, the patient is a 68-year-old male with past medical history significant for above, who had no exposure to healthcare system for approximately 15 years prior to his admission in the hospital. The patient came to the emergency department with chief complaint of headache, weakness, dizziness, nausea, and less right-sided vision cut that began on the afternoon the day before he came into the hospital. The patient came to the ER and was found to have a NIH Stroke Scale of 8, but not a tPA candidate, had no large vessel occlusion on his CTA. The patient's blood pressure was in the 200s systolic on admission. He had no signs of AFib on EKG, not on any in telemetry monitoring. The patient was given aspirin per rectum and admitted to the hospital. The patient was seen in consultation by Dr. Jasmina Galvez, who believes this was a stroke, possibly cardioembolic. The patient was admitted to the hospital. The patient was allowed to have permissive hypertension. The patient was started on Lipitor due to hypercholesterolemia. The patient's transesophageal echocardiogram was read as above. The transesophageal echocardiogram revealed fibroadenomas as above. The patient was noted to have paratracheal and mediastinal lymphadenopathy with slightly increased interstitial markings, so he had no respiratory symptoms. I recommend this be followed up as outpatient. The patient was seen in consultation by Physical Therapy and Occupational Therapy and deemed to have needs in both areas. The patient passed a swallow evaluation, had no issues with dysphagia. The patient after being found to have fibroadenomas as above had his case discussed by Dr. Galvez with Cardiothoracic Surgery at the [facility] and was recommended that the patient remain on dual antiplatelet therapy for a minimum of 21 days with further recommendations pending his evaluation by Cardiology. The patient's blood pressure was lowered slowly using amlodipine and lisinopril as above, and was near goal on that day on 01/16/19. The patient had no signs of hemorrhage or stroke propagation on repeat CT scan. The patient has significant issues with constipation while in the hospital going 9 days from his last bowel movement, by the time he had bowel movement on 01/16/19. At that time, the patient was eligible for treatment at an acute rehab with goal of regaining independence and going home. The patient was stable for presumed discharge on 01/17/19. DISCHARGE PLAN BY PROBLEM: 1. Acute cardioembolic CVA with right fibroelastomas. The patient has been placed on dual antiplatelet therapy, which he is tolerating well. The patient has been showing mild improvement in his neurologic deficits related to his cerebellar dysfunction and visual field cut; however, the patient does still have needs for physical therapy and occupational therapy, which will be addressed during acute rehab at [facility]. The patient should continue on dual antiplatelet therapy for at least 21 days. He should follow up within that time with Dr. Fredy James of Cardiology with whom the case has been discussed , who did not see the patient officially in consultation in the hospital. The patient should avoid hypotension and have his blood pressure continued to be slowly lowered to the optimal range, approximately 120 to 140 systolic. The patient has no signs of lupus anticoagulant by testing and a negative SERA, which are requested by cardiothoracic Surgery at [facility]. Prior to their evaluation, the patient should be evaluated by Cardiothoracic Surgery in 4 to 6 weeks for consideration of valve replacement or other treatment for fibroelastoma. The patient's infarcts will likely be stable at that time for cardiopulmonary bypass, which would be necessary for this type of surgery. The patient is on high intensity statin therapy and it shows cholesterol was checked per regular screening guidelines. The patient has no evidence of AFib while in the hospital on 1 week of telemetry monitoring. 2. Hypertension. The patient was markedly hypertensive while in the hospital. This has not been relatively well controlled, but this can be updated through his primary care provider. The patient had a slightly elevated troponin on admission likely related to his profound hypertension. The patient had no other signs of end- organ damage. 3. Mediastinal and paratracheal lymphadenopathy. This is unclear cause though is in association with interstitial changes on the patient's chest x-ray. The patient has no respiratory symptoms. No other signs of sarcoidosis. This should be further evaluated through his primary care provider with a contrast- enhanced CT of the chest per Radiology recommendations. 4. Hyperlipidemia. Continue Lipitor as above. 5. BPH. The patient is currently asymptomatic from this. No complaints of lower urinary tract symptoms. DISPOSITION: PMRU. CONDITION: Stable. TIME SPENT: Approximately 60 minutes was spent on the discharge of this patient , 30 of which was spent [id number] with the patient obtaining history and physical and discussing treatment plan. DOUGLAS MCNEAL [id number]/[facility] #: [id number] EDMUNDO
[2019-01-17] MEDS: Heparin VIAL(*) 5000 UNITS/ML VIAL (FIVE THOUSAND) SUBCUT SCH (05:14)
[2019-01-17 07:59] VITALS: BP 161/94
[2019-01-17] MEDS: amLODIPine TAB* 5 MG PO SCH (08:27)
[2019-01-17] MEDS: Aspirin 81 mg CHEW TAB* 81 MG TAB.CHEW PO SCH (08:27)
[2019-01-17] MEDS: Docusate CAP* 100 MG PO SCH (08:27)
[2019-01-17] MEDS: Clopidogrel TAB* 75 MG PO SCH (08:28)
[2019-01-17] MEDS: Lisinopril TAB* 10 MG PO SCH (08:28)
[2019-01-17] MEDS: Magnesium Hydroxide LIQ* 30 ML UDC PO SCH (08:33)
[2019-01-17 15:42] LABS: Beta 2 Glycoprotein IgG <9.4 U/mL
== END 2019-01-17 10:09 | disposition home or self-care (01) | DRG 65 ==
LOC: ED 11:08 → ICU 13:25 → MEDTELE 01-10 12:00
PROVIDERS: ADMIT Internal Medicine; ATTEND Internal Medicine
PROC: B24BZZ4 Ultrasonography of Heart with Aorta, Transesophageal (ICD-10-PCS; principal; 2019-01-10 14:45)
DX: I63.541 Cerebral infarction due to unspecified occlusion or stenosis of right cerebellar artery (principal); I42.4 Endocardial fibroelastosis; I63.89 Other cerebral infarction; I10 Essential (primary) hypertension; R27.0 Ataxia, unspecified; I16.0 Hypertensive urgency; N40.0 Benign prostatic hyperplasia without lower urinary tract symptoms; H53.8 Other visual disturbances; R29.810 Facial weakness; R29.704 NIHSS score 4; D64.9 Anemia, unspecified; E66.9 Obesity, unspecified; H53.461 Homonymous bilateral field defects, right side; E78.5 Hyperlipidemia, unspecified; R59.1 Generalized enlarged lymph nodes; H02.402 Unspecified ptosis of left eyelid; R59.0 Localized enlarged lymph nodes; R47.1 Dysarthria and anarthria; I63.532 Cerebral infarction due to unspecified occlusion or stenosis of left posterior cerebral artery; I08.0 Rheumatic disorders of both mitral and aortic valves; E78.00 Pure hypercholesterolemia, unspecified; Z87.891 Personal history of nicotine dependence; Z68.37 Body mass index [BMI] 37.0-37.9, adult; Z79.02 Long term (current) use of antithrombotics/antiplatelets; Z79.82 Long term (current) use of aspirin; Z79.899 Other long term (current) drug therapy
CPT/HCPCS: 36415; 70450; 70496; 70498; 70551; 71045; 80048; 80053; 80061; 81003; 83036; 83605; 84484; 85025; 85610; 85613; 85652; 85730; 86038; 86140; 86146; 86147; 87040; 87641; 90686; 90732; 93005; 93306; 93312; 93325; 99156; 99157; 99285; A9270-GY; C8929; G8978-GP-CJ; G8979-GP-CI; J1644; J2250; J2310; J2405; J3010; Q9967

== ENCOUNTER 2019-01-17 07:29 | Inpatient (IN) | payer MEDICARE ==
[2019-01-17] MEDS ORDERED: Acetaminophen TAB* 325 MG PO PRN (11:45)
[2019-01-17] MEDS: Heparin VIAL(*) 5000 UNITS/ML VIAL (FIVE THOUSAND) SUBCUT SCH ×2 (15:00→21:57)
[2019-01-17] MEDS: Atorvastatin* 80 MG TAB PO SCH (17:23)
[2019-01-17] MEDS: Docusate CAP* 100 MG PO SCH (19:15)
--- NOTE | 2019-01-17 20:32 | HP ---
ADMISSION HISTORY AND PHYSICAL: DATE OF ADMISSION: 01/17/19 REASON FOR ADMISSION: Right cerebellar CVA and left occipital lobe CVA. HISTORY OF PRESENT ILLNESS: Cain Pratt is a 68-year-old male. The patient has been lost to follow up for approximately the past 15 or 20 years and has not seen a doctor in that time. 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 He has a history of borderline hypertension but again has not seen a doctor in many years. On the evening of 01/08/19, the patient was having difficulty with a headache and nausea and vertigo and had a lot of trouble getting up. He sat down on his couch and waited for his son to arrive. He could not call his son because he could not get to his cell phone. His son came to see him on the morning of 01/09/19 and brought him to the hospital. In the emergency room, he was found to have an elevated systolic blood pressure in the 200s. A CAT scan of the brain showed a hypodense area in the right cerebellum. A CTA of the head and neck showed no large vessel occlusion. Chest x-ray showed right paratracheal lymphadenopathy. EKG was not revealing. The patient was given aspirin in the emergency room. He was admitted to [facility] with the diagnosis of a CVA. He had a consult done by Dr. Galvez. He was obviously outside the window for tPA. The patient was admitted to the Intensive Care Unit. He had an MRI of his brain, which confirmed a right cerebellar stroke and also showed a left occipital lobe stroke. He had been given aspirin as mentioned in a suppository and was started on Lipitor and later Plavix and aspirin. It was felt that his blood pressure could be permissive although if his systolic went above 220 or diastolic above 110, he was to be given IV labetalol. He had an echocardiogram showing thickening of his aortic valve leaflets. He had a transesophageal echo on the following day. The transesophageal echo showed lesions on his aortic valve and he was started on Plavix in addition to his aspirin and Lipitor. He was also started on subcu heparin. The patient's blood pressure was elevated and he was started on amlodipine. It was thought that the patient had fibroelastoma on the aortic and mitral valves. It was felt that he would require anticoagulation after 21 days of dual antiplatelet therapy but that was not definitively determined. The patient will need evaluation in the future by Cardiothoracic Surgery. Lisinopril was added to his Norvasc for his blood pressure. The patient tolerated the aspirin and Plavix. He was felt to have physical therapy and occupational therapy needs. He is now being admitted for inpatient rehab so that he might return to independent living. PAST MEDICAL HISTORY: As noted was significant for borderline hypertension but he had not seen a doctor in 15 years. CURRENT MEDICATIONS: Include: 1. Aspirin. 2. Plavix. 3. Norvasc. 4. Lisinopril. 5. Bowel medications as well as heparin for DVT prophylaxis. ALLERGIES: The patient has no known drug allergies. SOCIAL HISTORY: The patient lives alone in a [address] house. There are a couple of steps to enter. He does have a son living nearby who is in business with him. He was working as a contractor. The patient was a nonsmoker. He was a former smoker and denied any excessive alcohol use. REVIEW OF SYSTEMS: The patient reports no current shortness of breath or chest pain. PHYSICAL EXAMINATION VITAL SIGNS: The patient's temperature is 98.4, blood pressure is 148/76, pulse 64, respirations 18. HEENT: His extraocular movements are intact. Tongue is midline. NECK: Supple. LUNGS: Lung sounds clear to auscultation bilaterally. HEART: Heart sounds are regular. S1, S2 are audible. ABDOMEN: Soft and nontender. EXTREMITIES: His extremities showed normal muscle bulk and tone. Peripheral pulses are intact. NEUROLOGIC: The patient is awake, alert, and oriented. Muscle strength is close to 5/5. He had a significant dysmetria with his right hand on finger-to- nose testing. He had a right homonymous hemianopia, seemed to have a left gaze preference. FUNCTIONAL: The patient transfers with moderate amount of assistance. ASSESSMENT: Right cerebellar infarct and left occipital lobe infarct, likely due to fibroelastoma on his mitral valve. PLAN: We are going to integrate him into a comprehensive and therapeutic rehab program. We will have the following goals: 1. Physical Therapy will work with the patient. They are going to work on functional transfer training, ambulation training with a walker. 2. Occupational Therapy will see the patient, work on his activities of daily living including toileting and toilet transfers. 3. Speech Therapy will see the patient and evaluate him for any swallowing difficulties. 4. Heparin for DVT prophylaxis. 5. Continue blood pressure control with Lisinopril and Norvasc. 6. Dual antiplatelet therapy for 21 days then further recommendations per Cardiology. 7. High dose Lipitor for lipid control. 8. Chief Wharfinger will be closely involved to make sure that any services and equipment the patient requires are in place prior to discharge. 9. Family training as appropriate. 10. Advance directives: The patient is a full code. 11. Home with appropriate services. ESTIMATED LENGTH OF STAY: 14 to 18 days. [id number]/[facility] #: [id number] EDMUNDO
[2019-01-18 04:27] LABS: ABS Basophils 0.1 10^3/ul (0-0.2); ABS Eosinophils 0.1 10^3/ul (0-0.6); ABS Lymphocytes 1.9 10^3/ul (1.0-4.8); ABS Monocytes 0.9 10^3/ul (0-0.8); ABS Neutrophils 6.1 10^3/ul (1.5-7.7); Eosinophil % 1.5 %; Hematocrit 41 % (42-52); Hemoglobin 14.1 g/dL (14.0-18.0); Lymphocyte % 20.7 %; Mean Corpuscular HGB Conc 34 g/dL (31-36); Mean Corpuscular Hemoglobin 30 pg (27-31); Mean Corpuscular Volume 89 fL (80-94); Mean Platelet Volume 8.2 fL (7.4-10.4); Nucleated Red Blood Cells % 0.1; Platelet Count 254 10^3/uL (150-450); Red Blood Count 4.64 10^6 /uL (4.18-5.48); Red Cell Distribution Width 15 % (10-15)
[2019-01-18 04:43] LABS: Albumin 3.7 g/dL (3.2-5.2); Albumin/Globulin Ratio 1.2 (1-3); BUN/Creatinine Ratio 21.8 (8-20); EGFR African American 73.8 (>60); Globulin 3.1 g/dL (2-4); Potassium 4.3 mmol/L (3.5-5.0); Total Bilirubin 0.5 mg/dL (0.2-1.0); Total Protein 6.8 g/dL (6.4-8.9)
[2019-01-18] MEDS: Heparin VIAL(*) 5000 UNITS/ML VIAL (FIVE THOUSAND) SUBCUT SCH ×3 (06:31→21:09)
[2019-01-18] MEDS: Aspirin EC TAB* 81 MG TAB.EC PO SCH (08:30)
[2019-01-18] MEDS: amLODIPine TAB* 5 MG PO SCH (08:30)
[2019-01-18] MEDS: Lisinopril TAB* 10 MG PO SCH (08:30)
[2019-01-18] MEDS: Docusate CAP* 100 MG PO SCH ×2 (08:30→21:11)
[2019-01-18] MEDS: Clopidogrel TAB* 75 MG PO SCH (08:30)
[2019-01-18] MEDS: Atorvastatin* 80 MG TAB PO SCH (16:33)
--- NOTE | 2019-01-18 19:23 | PN ---
Progress Note Date of Service: 01/18/19 Note: NOAH JUAREZ was visited. Therapy notes read and reviewed. He worked with therapy which he enjoyed immensely. Otherwise doing well without complaints. Current Medications: Active Medications Generic Name Dose Route Start Last Admin Trade Name Freq PRN Reason Stop Dose Admin Acetaminophen 650 mg 01/17/19 11:45 Tylenol Tab* PO Q6H PRN MILD PAIN or TEMP > 100.4 Amlodipine Besylate 10 mg 01/18/19 09:00 01/18/19 08:30 Norvasc Tab* PO 10 mg DAILY LEX Administration Aspirin 81 mg 01/18/19 09:00 01/18/19 08:30 Aspirin Ec Tab* PO 81 mg DAILY LEX Administration Atorvastatin Calcium 80 mg 01/17/19 17:00 01/18/19 16:33 Lipitor* PO 80 mg 1700 LEX Administration Clopidogrel Bisulfate 75 mg 01/18/19 09:00 01/18/19 08:30 Plavix Tab* PO 75 mg DAILY LEX Administration Docusate Sodium 100 mg 01/17/19 21:00 01/18/19 08:30 Colace Cap* PO 100 mg BID LEX Administration Heparin Sodium (Porcine) 5,000 units 01/17/19 14:00 01/18/19 14:04 Heparin Vial(*) SUBCUT 5,000 units Q8HR LEX Administration Lisinopril 20 mg 01/18/19 09:00 01/18/19 08:30 Prinivil Tab* PO 20 mg DAILY LEX Administration Magnesium Hydroxide 30 ml 01/17/19 11:45 Milk Of Magnesia Liq* PO Q6H PRN CONSTIPATION Senna 2 tab 01/17/19 11:45 Senokot 8.6 Mg Tab* PO BEDTIME PRN CONSTIPATION Vital Signs: Vital Signs Temp Pulse Resp BP Pulse Ox 98.4 F 73 20 147/82 95 01/18/19 16:30 01/18/19 16:30 01/18/19 16:30 01/18/19 16:30 01/18/19 18:35 Lab Results: Laboratory Results - last 24 hr 01/18/19 01/18/19 04:13 04:13 WBC 9.0 RBC 4.64 Hgb 14.1 Hct 41 L MCV 89 MCH 30 MCHC 34 RDW 15 Plt Count 254 MPV 8.2 Neut % (Auto) 67.3 Lymph % (Auto) 20.7 [place] % (Auto) 9.6 Eos % (Auto) 1.5 Baso % (Auto) 0.9 Absolute Neuts (auto) 6.1 Absolute Lymphs (auto) 1.9 Absolute Monos (auto) 0.9 H Absolute Eos (auto) 0.1 Absolute Basos (auto) 0.1 Absolute Nucleated RBC 0.0 Nucleated RBC % 0.1 Sodium 137 Potassium 4.3 Chloride 103 Carbon Dioxide 27 Anion Gap 7 BUN 26 H Creatinine 1.19 H Est GFR ( Amer) 73.8 Est GFR (Non-Af Amer) 61.0 BUN/Creatinine Ratio 21.8 H Glucose 108 H Calcium 9.0 Total Bilirubin 0.50 AST 38 ALT 50 Alkaline Phosphatase 93 Total Protein 6.8 Albumin 3.7 Globulin 3.1 Albumin/Globulin Ratio 1.2 Exam: GENERAL: No distress HEENT: Right homonymous hemianopsia LUNGS: Clear bilaterally HEART: Regular rhythm ABDOMEN: Soft, +BS EXTREMITIES: Normal muscle bulk and tone NEUROLOGIC: alert and orieted. Dysmetria in RUE on FTN testing. Dyscoordination Assessment/Plan: 1. Right Cerebellar CVA, left occipital lobe CVA: PT/OT. 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 Anticoagulation will be addressed by cardiology 3. Hypertension: Norvasc/Lisinopril 4. DVT Prophylaxis: Lovenox 5. Mediastinal Lymphadenopathy: Will need CT of chest after discharge 6. Advance Directives: Full code. His son, Caesar, is his surrogate decision maker 01/18/19 19:36
[2019-01-19] MEDS: Heparin VIAL(*) 5000 UNITS/ML VIAL (FIVE THOUSAND) SUBCUT SCH ×3 (05:25→22:00)
[2019-01-19] MEDS: amLODIPine TAB* 5 MG PO SCH (08:43)
[2019-01-19] MEDS: Lisinopril TAB* 10 MG PO SCH (08:43)
[2019-01-19] MEDS: Docusate CAP* 100 MG PO SCH ×2 (08:43→22:00)
[2019-01-19] MEDS: Clopidogrel TAB* 75 MG PO SCH (08:43)
[2019-01-19] MEDS: Aspirin EC TAB* 81 MG TAB.EC PO SCH (08:43)
[2019-01-19] MEDS: Atorvastatin* 80 MG TAB PO SCH (17:41)
--- NOTE | 2019-01-19 18:04 | PN ---
Progress Note Date of Service: 01/19/19 Note: NOAH JUAREZ was visited. Therapy notes read and reviewed. He feels like he is doing well with therapy and has no specific complaints. Current Medications: Active Medications Generic Name Dose Route Start Last Admin Trade Name Freq PRN Reason Stop Dose Admin Acetaminophen 650 mg 01/17/19 11:45 Tylenol Tab* PO Q6H PRN MILD PAIN or TEMP > 100.4 Amlodipine Besylate 10 mg 01/18/19 09:00 01/19/19 08:43 Norvasc Tab* PO 10 mg DAILY LEX Administration Aspirin 81 mg 01/18/19 09:00 01/19/19 08:43 Aspirin Ec Tab* PO 81 mg DAILY LEX Administration Atorvastatin Calcium 80 mg 01/17/19 17:00 01/19/19 17:41 Lipitor* PO 80 mg 1700 LEX Administration Clopidogrel Bisulfate 75 mg 01/18/19 09:00 01/19/19 08:43 Plavix Tab* PO 75 mg DAILY LEX Administration Docusate Sodium 100 mg 01/17/19 21:00 01/19/19 08:43 Colace Cap* PO 100 mg BID LEX Administration Heparin Sodium (Porcine) 5,000 units 01/17/19 14:00 01/19/19 14:39 Heparin Vial(*) SUBCUT 5,000 units Q8HR LEX Administration Lisinopril 20 mg 01/18/19 09:00 01/19/19 08:43 Prinivil Tab* PO 20 mg DAILY LEX Administration Magnesium Hydroxide 30 ml 01/17/19 11:45 Milk Of Magnesia Liq* PO Q6H PRN CONSTIPATION Senna 2 tab 01/17/19 11:45 Senokot 8.6 Mg Tab* PO BEDTIME PRN CONSTIPATION Vital Signs: Vital Signs Temp Pulse Resp BP Pulse Ox 98.2 F 67 20 147/75 97 01/19/19 15:55 01/19/19 15:55 01/19/19 17:47 01/19/19 15:55 01/19/19 17:47 Exam: GENERAL: No distress HEENT: Right homonymous hemianopsia LUNGS: Clear bilaterally HEART: Regular rhythm ABDOMEN: Soft, +BS EXTREMITIES: Normal muscle bulk and tone NEUROLOGIC: alert and orieted. Dysmetria in RUE on FTN testing. Dyscoordination Assessment/Plan: 1. Right Cerebellar CVA, left occipital lobe CVA: PT/OT. 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 Anticoagulation will be addressed by cardiology 3. Hypertension: Norvasc/Lisinopril 4. DVT Prophylaxis: Lovenox 5. Mediastinal Lymphadenopathy: Will need CT of chest after discharge 6. Advance Directives: Full code. His son, Caesar, is his surrogate decision maker 01/19/19 18:05
[2019-01-20] MEDS: Heparin VIAL(*) 5000 UNITS/ML VIAL (FIVE THOUSAND) SUBCUT SCH ×3 (05:41→21:34)
[2019-01-20] MEDS: Clopidogrel TAB* 75 MG PO SCH (10:06)
[2019-01-20] MEDS: Aspirin EC TAB* 81 MG TAB.EC PO SCH (10:06)
[2019-01-20] MEDS: Docusate CAP* 100 MG PO SCH ×2 (10:06→20:52)
[2019-01-20] MEDS: Lisinopril TAB* 10 MG PO SCH (10:07)
[2019-01-20] MEDS: amLODIPine TAB* 5 MG PO SCH (10:08)
--- NOTE | 2019-01-20 11:57 | PN ---
Progress Note Date of Service: 01/20/19 Note: NOAH JUAREZ was visited. Nursing and therapy notes read and reviewed. No chest pain, shortness of breath or abdominal pain. Current Medications: Active Medications Generic Name Dose Route Start Last Admin Trade Name Freq PRN Reason Stop Dose Admin Acetaminophen 650 mg 01/17/19 11:45 Tylenol Tab* PO Q6H PRN MILD PAIN or TEMP > 100.4 Amlodipine Besylate 10 mg 01/18/19 09:00 01/20/19 10:08 Norvasc Tab* PO 10 mg DAILY LEX Administration Aspirin 81 mg 01/18/19 09:00 01/20/19 10:06 Aspirin Ec Tab* PO 81 mg DAILY LEX Administration Atorvastatin Calcium 80 mg 01/17/19 17:00 01/19/19 17:41 Lipitor* PO 80 mg 1700 LEX Administration Clopidogrel Bisulfate 75 mg 01/18/19 09:00 01/20/19 10:06 Plavix Tab* PO 75 mg DAILY LEX Administration Docusate Sodium 100 mg 01/17/19 21:00 01/20/19 10:06 Colace Cap* PO 100 mg BID LEX Administration Heparin Sodium (Porcine) 5,000 units 01/17/19 14:00 01/20/19 05:41 Heparin Vial(*) SUBCUT 5,000 units Q8HR LEX Administration Lisinopril 20 mg 01/18/19 09:00 01/20/19 10:07 Prinivil Tab* PO 20 mg DAILY LEX Administration Magnesium Hydroxide 30 ml 01/17/19 11:45 Milk Of Magnesia Liq* PO Q6H PRN CONSTIPATION Senna 2 tab 01/17/19 11:45 Senokot 8.6 Mg Tab* PO BEDTIME PRN CONSTIPATION Vital Signs: Vital Signs Temp Pulse Resp BP Pulse Ox 98.4 F 65 20 120/77 97 01/20/19 05:35 01/20/19 05:35 01/20/19 05:35 01/20/19 05:35 01/20/19 05:35 Exam: GENERAL: No acute distress. Alert and appropriate. HEENT: Right homonymous hemianopsia. LUNGS: Clear to auscultation bilaterally HEART: Regular rate and rhythm ABDOMEN: Soft, + bowel sounds, non-tender, non-distended. Chronic periumbilical hernia. EXTREMITIES: No edema. NEUROLOGIC: Dysmetria in RUE on FTN testing. Dyscoordination. Motor 5/5 BUE/ BLE. Sensation intact x4. Assessment/Plan: 1. Right Cerebellar CVA, left occipital lobe CVA: PT/OT. 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 Anticoagulation will be addressed by cardiology 3. Hypertension: Norvasc/Lisinopril 4. DVT Prophylaxis: Lovenox 5. Mediastinal Lymphadenopathy: Will need CT of chest after discharge 6. Advance Directives: Full code. His son, Caesar, is his surrogate decision maker 01/20/19 11:57
--- NOTE | 2019-01-20 12:37 | PMRUTEAM ---
PMRU: Team Meeting Current Status: Physical Therapy: Current Status Current Rolling Status Supervision/Touching Current Supine <-> Sit Status Supervision/Touching Current Sit <-> Stand Status Supervision/Touching Current Bed <-> Chair Status Partial/Moderate Transfer/Bed Mobility Rolling Walker Recommended Devices Current Picking Up Object Partial/Moderate Status Current Car Transfer Status Partial/Moderate Current Ambulation Assistance Supervision/Touching Status Ambulation Assistive Device Rolling Walker Ambulation Conditions Two or More Turns Current Ambulation Distance 150' Manual Wheelchair Control/ Bilateral UE/Bilateral LE Technique Current Wheelchair Propulsion Supervision/Touching Ability Status Wheelchair Distance (ft) 150 Current Stair Climbing Status Supervision/Touching Stair Climbing Assistive Left Railing,Right Railing Devices Number of Stairs Climbed 3 Current Curb Assistance Status Partial/Moderate Curb Assistive Devices Railings Objective Comments Pt demonstrates improved RLE control with exercises and some standing activities this session. Continues to demonstrate worsening ataxia with increased fatigue. Occupational Therapy: Current Status Current Upper Body Dressing Setup or Clean-up Assist Status Current Lower Body Dressing Partial/Moderate Status Current Footwear Status Supervision/Touching Current Bathing Status Partial/Moderate Current Grooming Status Setup or Clean-up Assist Current Toileting Status Partial/Moderate Current Toilet Transfer Status Partial/Moderate Current Eating Status Setup or Clean-up Assist Nursing: Current Status Skin Deviations [Generalized] Other Skin Deviation Description [ - Generalized] Rec Therapy: Current Status Summary of Assessment and Pt was agreeable to meet to discuss leisure Clinical Impression interests and involvement. 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 Pt appeared tired, brightened as the conversation went on and when he talked about his interests. Pt became tearful when talking about his cats, stating that he " missed them a lot". Pt was pleasant and appeared to enjoy staff visiting and talking with him. Pt stated interest in leisure visists, pet therapy, and crossword puzzles/word search which were provided to him. Treatment Goals Pt will engage in leisure activities while on the unit as tolerated Treatment Plan Provide recreation therapy services and encourage involvement Social Work: Current Status Discharge Plan return home with home care svs and family support Potential for Family Training pt's son is involved and attentive Anticipated Discharge Home Destination Discharge With home care svs and family support Nutrition: Current Status Monitoring pt adm to PMRU today; dx CVA. Has not had dysphagia per chart. Feeding self w/set-up and eating well. Education re: statin/grapfruit interaction provided 01/11. Full nutrition assessment planned on 01/24. Initial nutrition goals are outlined below. Goals: Physical Therapy: Goals Goals to Be Accomplished in ( 14-21 Days) Goal: Rolling Assistance Independent Goal Supine <-> Sit Status Independent Goal Sit <-> Stand Status Independent Goal Bed <-> Chair Status Independent Transfer/Bed Mobility Rolling Walker Recommended Devices Goal: Picking Up Object Independent Goal: Car Transfer Status Setup or Clean-up Assist Goal: Ambulation Assistance Independent Ambulation Assistive Devices Rolling Walker Ambulation Distance (ft) 150 Goal: Wheelchair Propulsion Independent Ability Wheelchair Distance (ft) 1x125' Goal: Stairs Assistance Setup or Clean-up Assist Stairs Recommended Devices Two Rails Number of Stairs 2 x 5 Goal: Curb Assistance Independent Goal: Home Exercise Program Independent Assistance Occupational Therapy: Goals Goals to be Completed in (Days 10-14 ) Goal Upper Body Dressing Independent Routine Goal Lower Body Dressing Independent Routine Goal Footwear Status Independent Goal Bathing Routine (OT) Independent Goal Grooming Routine Independent Goal Toilet Hygiene and Independent Clothing Management Routine Goal Toilet Transfer Routine Independent Goal Functional Transfers for Independent ADL Goal Feeding Routine Independent Nutrition: Goals Intervention Goals 1. adequate po intake to support hydration and lean body mass without add'l wt gain 2. pt will tolerate regular diet texture and liquid consistency without difficulty swallowing 3. maintain serum electrolytes WNL 4. regulation of bowel pattern; no c/o constipation (or diarrhea) 5. pt will avoid grapefruit intake w/newly prescribed statin Social Work: Goals Discharge Plan return home with home care svs and family support Potential for Family Training pt's son is involved and attentive Anticipated Discharge Home Destination Discharge With home care svs and family support Care Plan: Care Plan ADL's - Improve/Maintain Start: 01/17/19 15:12 Freq: [id number]@[id number],1900 Status: Active Target: 02/01/19 Protocol: Activity Type Activity Date Activity User E-Sign Co-Sign Detail Recorded Client Recorded Date Recorded By Document 01/19/19 15:59 [id number] 01/19/19 15:59 [id number] 01/19/19 15:59 PMRU Outcome: ADL's/ADL Transfers Orders/Interventions Occupational Therapy Evaluation & Treatment Communication Tool in Patient Room Device Yes Address Deficits Secondary To: CVA Patient to receive OT 5x/wk for 60-120 Therex min/day Self Care Management Group Therapy Neuromuscular ReEducation UE/LE ADL's with Assist Yes: Marcela ADL Transfers with Assist Yes: Marcela Toileting: Transfers,Clothing Management Yes: Marcela ,Hygeine w/Assist Light Kitchen/Laundry w/Assist Yes: Marcela light meal prep Other Outcome/Goals Pt participated well in treatment session, reports he is seeing gradual improvement in right sided coordination, standing balance/safety improved during standing portion of ADLs this date with pt utilizing one hand at a time for support on FWW for safety. Progression Toward Outcome/Goals Progressing DVT Prophylaxis- Improve/Maintain Start: 01/17/19 11:46 Freq: DAILY@[id number],1899 Status: Active Target: 02/03/19 Protocol: Activity Type Activity Date Activity User E-Sign Co-Sign Detail Recorded Client Recorded Date Recorded By Document 01/20/19 00:44 [id number] 01/20/19 00:44 [id number] 01/20/19 00:44 PMRU Outcome: DVT Prophylaxis Current DVT Outcome/Goals Remains Free of DVT Complies with DVT Prophylaxis /Treatment Demonstrates Knowledge of DVT Prevention/ Treatment TEDS Stockings on Every AM, Off at HS Progression Toward Outcome/Goals Progressing Discharge Planning - Improve/Maintain Start: 01/17/19 11:46 Freq: [id number] Status: Active Target: 02/03/19 Protocol: Activity Type Activity Date Activity User E-Sign Co-Sign Detail Recorded Client Recorded Date Recorded By Document 01/20/19 00:44 [id number] 01/20/19 00:44 [id number] 01/20/19 00:44 PMRU Outcome: Discharge Planning Update Patient Family No Current Discharge Planning Outcome/Goals Demonstrates Understanding of Discharge Plan Homecare Referral - See Comment Progression Toward Outcome/Goals Progressing Education-Improve/Maintain Start: 01/17/19 11:46 Freq: DAILY@[id number],190 Status: Active Target: 02/03/19 Protocol: Activity Type Activity Date Activity User E-Sign Co-Sign Detail Recorded Client Recorded Date Recorded By Document 01/20/19 00:44 [id number] 01/20/19 00:44 [id number] 01/20/19 00:44 PMRU Outcome: Education Current Education Outcome/Goals Demonstrate/ Verbalize Understanding of Written Discharge Instructions Demonstrates Skills Encourage Questions Progression Toward Outcome/Goals Progressing /GI-Improve/Maintain Start: 01/17/19 11:46 Freq: DAILY@[id number] Status: Active Target: 02/03/19 Protocol: Activity Type Activity Date Activity User E-Sign Co-Sign Detail Recorded Client Recorded Date Recorded By Document 01/20/19 00:44 [id number] 01/20/19 00:44 [id number] 01/20/19 00:44 PMRU Outcome: Genitourinary/ Gastrointestinal Current Gastrointestinal Outcome/Goals Maintain/ Achieve Bowel Regularity in Accordance with Pt's Baseline Remain Free of Emesis Prevent Constipation Bowel Regularity at Home Laxatives as Ordered Progression Toward Outcome/Goals Progressing Current Genitourinary Outcome/Goals Maintain/ Achieve Urinary Continence Maintain/ Achieve Adequate Urinary Output Remain Free of Hospital- Acquired UTI Progression Toward Outcome/Goals Progressing Medication Administration Start: 01/17/19 11:46 Freq: [id number] Status: Active Target: 02/03/19 Protocol: Activity Type Activity Date Activity User E-Sign Co-Sign Detail Recorded Client Recorded Date Recorded By Document 01/20/19 00:44 [id number] 01/20/19 00:44 [id number] 01/20/19 00:44 PMRU Outcome: Medication Administration Assess Patient Knowledge/Teach Med Yes Education for all Meds Current Investigator Narcotics Outcome/Goals Patient Independent with Medication Administration at Home Demonstrates Understanding Progression Towards Outcome/Goals Progressing Is Patient Going Home on Lovenox? No Mobility- Improve/Maintain Start: 01/17/19 17:21 Freq: DAILY@[id number] Status: Active Target: 01/18/19 Protocol: Activity Type Activity Date Activity User E-Sign Co-Sign Detail Recorded Client Recorded Date Recorded By Document 01/19/19 15:57 [id number] 01/19/19 15:57 [id number] 01/19/19 15:57 PMRU Outcome: Mobility Physical Therapy Evaluation and Yes Treatment Activity OOB with Assistance Yes Device Yes: FWW Assistance Yes: MIN/MOD Patient to be seen 5x/wk for 60-120 min/ Therex day for: Mobility Training Gait Training W/C Mobility Balance Current Mobility Outcome/Goals Maintain/ Achieve Baseline Mobility Status Improve Mobility Status Demonstrates Proper Use of Assistive Devices Free from Complications of Immobility Progression Toward Outcome/Goals Progressing Bed Mobility Yes: Ind Transfers Yes: Ind with FWW Gait x ft Yes: Ind with FWW x150ft W/C Mobility x ft Yes: Ind x150ft Up/Down Stairs Yes: Set-up x 1flight With HEP Yes: Ind Neurological- Improve/Maintain Start: 01/17/19 11:46 Freq: DAILY@0700,1900 Status: Active Target: 02/03/19 Protocol: Activity Type Activity Date Activity User E-Sign Co-Sign Detail Recorded Client Recorded Date Recorded By Document 01/20/19 00:44 [id number] 01/20/19 00:44 [id number] 01/20/19 00:44 PMRU Outcome: Neurological Weakness/Aphasia Weakness Right Side Current Neurological Outcome/Goals Maintain/ Achieve Baseline Neurological Status Improve Neurological Status Prevent Avoidable Neurological Decline Demonstrate Knowledge of Prevention/Tx of Neuro Disorders/ Complication Maintain/ Improve Strength/ROM Progression Toward Outcome/Goals Progressing Rec Therapy- Improve/Maintain Start: 01/17/19 16:18 Freq: DAILY@[id number] Status: Active Target: 01/24/19 Protocol: Activity Type Activity Date Activity User E-Sign Co-Sign Detail Recorded Client Recorded Date Recorded By Document 01/19/19 15:39 [id number] 01/19/19 15:45 [id number] 01/19/19 15:39 PMRU Outcome: Recreation Therapy Current Rec Ther Outcome/Goals Complete Rec Therapy Assessment Meet with Patient Regularly for Support Encourage Leisure Involvement Progression Toward Outcome/Goals Progressing Lack of Progression Comment Leisure visit was provided, pt reported that he has been working on the word searches provided and has enjoyed them. Pt stated he tried the crossword puzzles, but has been enjoying the word searches more. Pt had magazines that his son brought in for him which he has been reading. Pt declined needing any other inpependent leisure materials at this time. Outcome/Goals Met Complete Rec Therapy Assessment Safety- Improve/Maintain Start: 01/17/19 07:40 Freq: DAILY@0700,1900 Status: Active Target: 02/03/19 Protocol: Activity Type Activity Date Activity User E-Sign Co-Sign Detail Recorded Client Recorded Date Recorded By Document 01/20/19 00:44 [id number] 01/20/19 00:44 [id number] 01/20/19 00:44 PMRU Outcome: Safety Current Safety Outcome/Goals Remain Free of Injury or Harm Cooperates with Safety Measures for Least Restrictive Environment Prevent Falls/ Injury Progression Toward Outcome/Goals Progressing - Interdisciplinary Staff Present Flask Fitter/Social Work Staff Present: MARCO Vogt Nursing Staff Present: Nilda Harrington RN OT Staff Present: Jumana Peck PT Staff Present: Charley Ovalle Medicine Note: Length of Stay: [3 weeks] Anticipated Discharge Destination: Home Tentative Discharge Date: [02/10/19] Discharged to: [home]
[2019-01-20] MEDS ORDERED: Calcium Carbonate CHEW TAB* 500 MG (TUMS) PO PRN (16:13)
[2019-01-20] MEDS: Atorvastatin* 80 MG TAB PO SCH (16:18)
[2019-01-21] MEDS: Heparin VIAL(*) 5000 UNITS/ML VIAL (FIVE THOUSAND) SUBCUT SCH ×3 (05:38→21:00)
[2019-01-21] MEDS: Docusate CAP* 100 MG PO SCH ×2 (09:00→20:58)
[2019-01-21] MEDS: Aspirin EC TAB* 81 MG TAB.EC PO SCH (09:00)
[2019-01-21] MEDS: amLODIPine TAB* 5 MG PO SCH (09:00)
[2019-01-21] MEDS: Clopidogrel TAB* 75 MG PO SCH (09:02)
[2019-01-21] MEDS: Lisinopril TAB* 10 MG PO SCH (09:02)
--- NOTE | 2019-01-21 10:58 | PN ---
Progress Note Date of Service: 01/21/19 Note: NOAH JUAREZ was visited. Nursing and therapy notes read and reviewed. No chest pain, shortness of breath or abdominal pain. Used TUMs for indigestion yesterday. He uses this not infrequently at home as well. Current Medications: Active Medications Generic Name Dose Route Start Last Admin Trade Name Freq PRN Reason Stop Dose Admin Acetaminophen 650 mg 01/17/19 11:45 Tylenol Tab* PO Q6H PRN MILD PAIN or TEMP > 100.4 Amlodipine Besylate 10 mg 01/18/19 09:00 01/21/19 09:00 Norvasc Tab* PO 10 mg DAILY LEX Administration Aspirin 81 mg 01/18/19 09:00 01/21/19 09:00 Aspirin Ec Tab* PO 81 mg DAILY LEX Administration Atorvastatin Calcium 80 mg 01/17/19 17:00 01/20/19 16:18 Lipitor* PO 80 mg 1700 LEX Administration Calcium Carbonate 1,000 mg 01/20/19 16:13 01/20/19 16:18 Tums* PO 1,000 mg QID PRN Administration HEARTBURN Clopidogrel Bisulfate 75 mg 01/18/19 09:00 01/21/19 09:02 Plavix Tab* PO 75 mg DAILY LEX Administration Docusate Sodium 100 mg 01/17/19 21:00 01/21/19 09:00 Colace Cap* PO 100 mg BID LEX Administration Heparin Sodium (Porcine) 5,000 units 01/17/19 14:00 01/21/19 05:38 Heparin Vial(*) SUBCUT 5,000 units Q8HR LEX Administration Lisinopril 20 mg 01/18/19 09:00 01/21/19 09:02 Prinivil Tab* PO 20 mg DAILY LEX Administration Magnesium Hydroxide 30 ml 01/17/19 11:45 Milk Of Magnesia Liq* PO Q6H PRN CONSTIPATION Senna 2 tab 01/17/19 11:45 Senokot 8.6 Mg Tab* PO BEDTIME PRN CONSTIPATION Vital Signs: Vital Signs Temp Pulse Resp BP Pulse Ox 97.9 F 68 16 111/74 95 01/21/19 05:39 01/21/19 05:39 01/21/19 08:00 01/21/19 05:39 01/21/19 08:00 Exam: GENERAL: No acute distress. Alert and appropriate. HEENT: Right homonymous hemianopsia. LUNGS: Clear to auscultation bilaterally HEART: Regular rate and rhythm ABDOMEN: Soft, + bowel sounds, non-tender, non-distended. Chronic periumbilical hernia. EXTREMITIES: No edema. NEUROLOGIC: Dysmetria in RUE on FTN testing. Dyscoordination. Motor 5/5 BUE/ BLE. Sensation intact x4. Assessment/Plan: 1. Right Cerebellar CVA, left occipital lobe CVA: PT/OT. 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 Anticoagulation will be addressed by cardiology 3. Hypertension: Norvasc/Lisinopril 4. DVT Prophylaxis: Lovenox 5. Mediastinal Lymphadenopathy: Will need CT of chest after discharge 6. Advance Directives: Full code. His son, Caesar, is his surrogate decision maker 7. Indigestion: Tums prn. 8. Estimated LOS: 02/10/19. 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 01/21/19 10:56
[2019-01-21] MEDS: Atorvastatin* 80 MG TAB PO SCH (17:18)
[2019-01-22] MEDS: Heparin VIAL(*) 5000 UNITS/ML VIAL (FIVE THOUSAND) SUBCUT SCH ×3 (05:30→21:46)
[2019-01-22] MEDS: Aspirin EC TAB* 81 MG TAB.EC PO SCH (08:17)
[2019-01-22] MEDS: amLODIPine TAB* 5 MG PO SCH (08:17)
[2019-01-22] MEDS: Docusate CAP* 100 MG PO SCH ×2 (08:17→21:45)
[2019-01-22] MEDS: Clopidogrel TAB* 75 MG PO SCH (08:18)
[2019-01-22] MEDS: Lisinopril TAB* 10 MG PO SCH (09:13)
--- NOTE | 2019-01-22 11:06 | PN ---
Progress Note Date of Service: 01/22/19 Note: NOAH Dimple FERRARIANN was visited. Nursing and therapy notes read and reviewed. No new concerns overnight. No chest pain, shortness of breath or abdominal pain. Current Medications: Active Medications Generic Name Dose Route Start Last Admin Trade Name Freq PRN Reason Stop Dose Admin Acetaminophen 650 mg 01/17/19 11:45 Tylenol Tab* PO Q6H PRN MILD PAIN or TEMP > 100.4 Amlodipine Besylate 10 mg 01/18/19 09:00 01/22/19 08:17 Norvasc Tab* PO 10 mg DAILY LEX Administration Aspirin 81 mg 01/18/19 09:00 01/22/19 08:17 Aspirin Ec Tab* PO 81 mg DAILY LEX Administration Atorvastatin Calcium 80 mg 01/17/19 17:00 01/21/19 17:18 Lipitor* PO 80 mg 1700 LEX Administration Calcium Carbonate 1,000 mg 01/20/19 16:13 01/20/19 16:18 Tums* PO 1,000 mg QID PRN Administration HEARTBURN Clopidogrel Bisulfate 75 mg 01/18/19 09:00 01/22/19 08:18 Plavix Tab* PO 75 mg DAILY LEX Administration Docusate Sodium 100 mg 01/17/19 21:00 01/22/19 08:17 Colace Cap* PO 100 mg BID LEX Administration Heparin Sodium (Porcine) 5,000 units 01/17/19 14:00 01/22/19 05:30 Heparin Vial(*) SUBCUT 5,000 units Q8HR LEX Administration Lisinopril 20 mg 01/18/19 09:00 01/22/19 09:13 Prinivil Tab* PO 20 mg DAILY LEX Administration Magnesium Hydroxide 30 ml 01/17/19 11:45 Milk Of Magnesia Liq* PO Q6H PRN CONSTIPATION Senna 2 tab 01/17/19 11:45 Senokot 8.6 Mg Tab* PO BEDTIME PRN CONSTIPATION Vital Signs: Vital Signs Temp Pulse Resp BP Pulse Ox 97.8 F 69 16 128/91 95 01/22/19 05:22 01/22/19 05:22 01/22/19 05:22 01/22/19 05:22 01/22/19 08:00 Exam: GENERAL: No acute distress. Alert and appropriate. HEENT: Right homonymous hemianopsia. LUNGS: Clear to auscultation bilaterally HEART: Regular rate and rhythm ABDOMEN: Soft, + bowel sounds, non-tender, non-distended. Chronic periumbilical hernia. EXTREMITIES: No edema. NEUROLOGIC: Dysmetria in RUE on FTN testing. Dyscoordination. Motor 5/5 BUE/ BLE. Sensation intact x4. Assessment/Plan: 1. Right Cerebellar CVA, left occipital lobe CVA: PT/OT. 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 Anticoagulation will be addressed by cardiology 3. Hypertension: Norvasc/Lisinopril 4. DVT Prophylaxis: Lovenox 5. Mediastinal Lymphadenopathy: Will need CT of chest after discharge 6. Advance Directives: Full code. His son, Caesar, is his surrogate decision maker 7. Indigestion: Tums prn. 8. Estimated LOS: 02/10/19. 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 01/22/19 11:06
[2019-01-22] MEDS: Atorvastatin* 80 MG TAB PO SCH (17:22)
[2019-01-23] MEDS: Heparin VIAL(*) 5000 UNITS/ML VIAL (FIVE THOUSAND) SUBCUT SCH ×3 (05:50→21:42)
[2019-01-23] MEDS: Clopidogrel TAB* 75 MG PO SCH (08:55)
[2019-01-23] MEDS: Docusate CAP* 100 MG PO SCH ×2 (08:55→21:42)
[2019-01-23] MEDS: amLODIPine TAB* 5 MG PO SCH (08:56)
[2019-01-23] MEDS: Aspirin EC TAB* 81 MG TAB.EC PO SCH (08:56)
[2019-01-23] MEDS: Lisinopril TAB* 10 MG PO SCH (08:56)
[2019-01-23] MEDS ORDERED: Lidocaine 1% INJ* 10 MG/ML 30 ML SDV ONE (14:24)
--- NOTE | 2019-01-23 15:50 | CARD ---
EVENT MONITOR IMPLANTATION REPORT: DATE OF PROCEDURE: 01/23/19 - ROOM #[id number] PROCEDURE: Event monitor implantation. INDICATION: CVA, possible occult atrial fibrillation. The patient is a 68-year-old gentleman who was recently admitted to hospital with a CVA. 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 The patient underwent a transesophageal echocardiogram which showed normal LV size and systolic function, but thickened aortic valve with evidence of small mobile masses in the cusp of the left coronary sinus. The patient was placed on aspirin and Plavix. Event monitor implantation was recommended to rule out occult atrial fibrillation as the cause for his presentation. DESCRIPTION OF PROCEDURE: The patient's anterior chest was prepped and draped in the usual fashion. 1% lidocaine was used for local anesthesia. An event monitor was injected subcutaneously. The patient tolerated the procedure well with no complications. The patient's device is a [facility] BioMonitor III, serial number [id number]. It had an R wave sensitivity of 0.42 mV. [id number]/[facility] #: [id number] [facility] HOSPITALDimple
[2019-01-23] MEDS: Atorvastatin* 80 MG TAB PO SCH (18:08)
--- NOTE | 2019-01-23 18:34 | PN ---
Progress Note Date of Service: 01/23/19 Note: NOAH Dimple ANN was visited. Therapy notes read and reviewed. The patient was seen by Dr. James from cardiology. ORTIZ being reviewed at [facility] but for now will continue DAPT with Plavix/ASA. Current Medications: Active Medications Generic Name Dose Route Start Last Admin Trade Name Freq PRN Reason Stop Dose Admin Acetaminophen 650 mg 01/17/19 11:45 Tylenol Tab* PO Q6H PRN MILD PAIN or TEMP > 100.4 Amlodipine Besylate 10 mg 01/18/19 09:00 01/23/19 08:56 Norvasc Tab* PO 10 mg DAILY LEX Administration Aspirin 81 mg 01/18/19 09:00 01/23/19 08:56 Aspirin Ec Tab* PO 81 mg DAILY LEX Administration Atorvastatin Calcium 80 mg 01/17/19 17:00 01/23/19 18:08 Lipitor* PO 80 mg 1700 LEX Administration Calcium Carbonate 1,000 mg 01/20/19 16:13 01/20/19 16:18 Tums* PO 1,000 mg QID PRN Administration HEARTBURN Clopidogrel Bisulfate 75 mg 01/18/19 09:00 01/23/19 08:55 Plavix Tab* PO 75 mg DAILY LEX Administration Docusate Sodium 100 mg 01/17/19 21:00 01/23/19 08:55 Colace Cap* PO 100 mg BID LEX Administration Heparin Sodium (Porcine) 5,000 units 01/17/19 14:00 01/23/19 14:56 Heparin Vial(*) SUBCUT 5,000 units Q8HR LEX Administration Lisinopril 20 mg 01/18/19 09:00 01/23/19 08:56 Prinivil Tab* PO 20 mg DAILY LEX Administration Magnesium Hydroxide 30 ml 01/17/19 11:45 Milk Of Magnesia Liq* PO Q6H PRN CONSTIPATION Senna 2 tab 01/17/19 11:45 Senokot 8.6 Mg Tab* PO BEDTIME PRN CONSTIPATION Vital Signs: Vital Signs Temp Pulse Resp BP Pulse Ox 97.4 F 88 20 114/81 96 01/23/19 14:16 01/23/19 14:16 01/23/19 16:02 01/23/19 14:16 01/23/19 14:16 Exam: GENERAL: No acute distress. Alert and appropriate. HEENT: Right homonymous hemianopsia. LUNGS: Clear to auscultation bilaterally HEART: Regular rate and rhythm ABDOMEN: Soft, + bowel sounds, non-tender, non-distended. Chronic periumbilical hernia. EXTREMITIES: No edema. NEUROLOGIC: Dysmetria in RUE on FTN testing. Dyscoordination. Motor 5/5 BUE/ BLE. Sensation intact x4. Assessment/Plan: 1. Right Cerebellar CVA, left occipital lobe CVA: PT/OT. 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 Anticoagulation will be addressed by cardiology; ORTIZ being reviewed at [facility] 3. Hypertension: Norvasc/Lisinopril 4. DVT Prophylaxis: Lovenox 5. Mediastinal Lymphadenopathy: Will need CT of chest after discharge 6. Advance Directives: Full code. His son, Caesar, is his surrogate decision maker 7. Indigestion: Tums prn. 8. Estimated LOS: 02/10/19. 01/23/19 18:35
--- NOTE | 2019-01-23 22:14 | CONS ---
CC: Dr. Galvez of Neurology Department at [facility] * CARDIOLOGY CONSULTATION REPORT: DATE OF CONSULT: 01/23/19 INDICATION FOR CONSULTATION: Occult atrial fibrillation. HISTORY OF PRESENT ILLNESS: The patient is a 68-year-old gentleman with a history of hypertension, BPH, alcoholism who came to the emergency room on 01/09 with headache and movement difficulties left greater than right. He was diagnosed with a stroke and was admitted to the hospital. The patient underwent a CTA, which showed multiple foci of possible thromboembolic events. While he was in the hospital, the patient underwent a transesophageal echocardiogram, which showed normal LV size and systolic function, evidence of a thickened aortic valve with small mobile masses on the aortic surface of the aortic valve, possibly consistent with fibroelastoma. With this, it seemed a reasonable cause for his thromboembolic events and CVAs. However, Neurology felt that he was still at risk for occult atrial fibrillation as a cause for his device and we were consulted. PAST MEDICAL HISTORY: Significant for hypertension, BPH. PAST SURGICAL HISTORY: Hernia repair, cholecystectomy. OUTPATIENT MEDICATIONS: Only ibuprofen p.r.n. ALLERGIES: No known drug allergies. FAMILY HISTORY: Father of chronic kidney disease, but had a history of myocardial infarction and coronary artery bypass surgery. Mother is alive and healthy. SOCIAL HISTORY: He is a previous smoker, he quit 23 years ago. He lives alone. 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 REVIEW OF SYSTEMS: Negative for fevers and chills. Negative for changes in bowel or bladder habits. Negative for change in weight. Other 12-point review is unremarkable except for what is described above. PHYSICAL EXAM: Temperature 97.4, heart rate is 88, blood pressure 114/81, respiratory rate is 20, oxygen saturation 96% on room air. Sclerae are anicteric. Oropharynx is pink without erythema. Carotids are 2+ without bruits. JVD is normal. Thyroid is normal. Cardiac Exam: S1, S2 without any murmurs, rubs, or gallops. Lungs: Clear to auscultation bilaterally. There is no dullness to percussion. Abdomen is soft, nontender, and nondistended with normoactive bowel sounds. Extremities show no edema. He has 2+ pulses throughout. The patient is awake and alert. He does have weakness on his left side. LABORATORY STUDIES: CBC within normal limits. Chemistries within normal limits. BUN 26, creatinine 1.19. IMPRESSION: This is a 68-year-old gentleman with a history of hypertension who was admitted to the hospital at the end of December with a cerebrovascular accident. The patient's transesophageal echocardiogram was concerning for thickening of the aortic valve with freely mobile masses that were small and potentially consistent with fibroelastoma. There was also some question as to occult atrial fibrillation as a cause for his multiple foci of his cerebrovascular accident seen on CAT scan. For now, my recommendation is the patient stay on aspirin and Plavix. The patient should be treated with statin therapy. The patient will undergo event monitor implantation for long-term monitoring of his cardiac arrhythmia. I will see the patient in followup as an outpatient after he is discharged from rehab. [id number]/[facility] #: [id number] EDMUNDO
[2019-01-24] MEDS: Heparin VIAL(*) 5000 UNITS/ML VIAL (FIVE THOUSAND) SUBCUT SCH ×3 (05:49→21:16)
[2019-01-24] MEDS: amLODIPine TAB* 5 MG PO SCH (08:19)
[2019-01-24] MEDS: Lisinopril TAB* 10 MG PO SCH (08:19)
[2019-01-24] MEDS: Docusate CAP* 100 MG PO SCH ×2 (08:19→21:15)
[2019-01-24] MEDS: Clopidogrel TAB* 75 MG PO SCH (08:19)
[2019-01-24] MEDS: Aspirin EC TAB* 81 MG TAB.EC PO SCH (08:19)
--- NOTE | 2019-01-24 12:39 | PMRUTEAM ---
PMRU: Team Meeting Current Status: Physical Therapy: Current Status Current Rolling Status Supervision/Touching Current Supine <-> Sit Status Supervision/Touching Current Sit <-> Stand Status Supervision/Touching Current Bed <-> Chair Status Supervision/Touching Transfer/Bed Mobility Rolling Walker Recommended Devices Current Picking Up Object Partial/Moderate Status Current Car Transfer Status Partial/Moderate Current Ambulation Assistance Supervision/Touching Status Ambulation Assistive Device Rolling Walker Ambulation Conditions Two or More Turns,Uneven Surfaces Current Ambulation Distance 1x125', 2x50' Manual Wheelchair Control/ Bilateral UE's Technique Current Wheelchair Propulsion Supervision/Touching Ability Status Wheelchair Distance (ft) 150 Current Stair Climbing Status Supervision/Touching Stair Climbing Assistive Left Railing,Right Railing Devices Number of Stairs Climbed 5 Current Curb Assistance Status Partial/Moderate Curb Assistive Devices Rolling Walker Objective Comments 5 steps with bilateral rails, step to pattern with [id number] Occupational Therapy: Current Status Current Upper Body Dressing Setup or Clean-up Assist Status Current Lower Body Dressing Supervision/Touching Status Current Footwear Status Setup or Clean-up Assist Current Bathing Status Supervision/Touching Current Grooming Status Setup or Clean-up Assist Current Toileting Status Supervision/Touching Current Toilet Transfer Status Supervision/Touching Current Eating Status Independent Nursing: Current Status Skin Deviations [Left Upper Other Chest] Skin Deviations [Generalized] Other Skin Deviation Description [ cardiac event monitor in place Left Upper Chest] Skin Deviation Description [ dry skin Generalized] Bladder Current Status Continent - CGA with transfers Bowel Current Status Continent - CGA with transfers Nutrition Current Status Eats 100% of most meals Medication Current Status Needs reinforcement with medications Rec Therapy: Current Status Summary of Assessment and Recreation therapy assessement complete and pt Clinical Impression aware of services available. Pt is open to leisure visits and pet therapy. Pt has declined formal recreational activities, but has participated in independent leisure interests such as word searches, and puzzles. Treatment Goals Pt will engage in leisure activities while on the unit as tolerated Treatment Plan Provide recreation therapy services and encourage involvement Social Work: Current Status Discharge Plan Return home with home care svs and family support Potential for Family Training pt's son is involved and supportive Anticipated Discharge Home Destination Discharge With VNS and family support Nutrition: Current Status Monitoring Pt is a 68 yo M admitted for CVA and treated with ASA, plavix and lipitor; receiving PT/OT. Maintained on heart healthy diet consuming avg 91% at meals x 3 days. No GI c/o, such as n/v/d/ab pain. Last BM documented 01/20; receiving bowel meds. Skin intact. Labs/meds rev'd: electrolytes wnl. No further nutrition intervention indicated. Will remain available as needed. Goals: Physical Therapy: Goals Goals to Be Accomplished in ( 14-21 Days) Goal: Rolling Assistance Independent Goal Supine <-> Sit Status Independent Goal Sit <-> Stand Status Independent Goal Bed <-> Chair Status Independent Transfer/Bed Mobility Rolling Walker Recommended Devices Goal: Picking Up Object Independent Goal: Car Transfer Status Setup or Clean-up Assist Goal: Ambulation Assistance Independent Ambulation Assistive Devices Rolling Walker Ambulation Distance (ft) 150 Goal: Wheelchair Propulsion Independent Ability Wheelchair Distance (ft) 150 Goal: Stairs Assistance Setup or Clean-up Assist Stairs Recommended Devices Two Rails Number of Stairs 12 Goal: Curb Assistance Independent Goal: Home Exercise Program Independent Assistance Occupational Therapy: Goals Goals to be Completed in (Days 10-14 ) Goal Upper Body Dressing Independent Routine Goal Lower Body Dressing Independent Routine Goal Footwear Status Independent Goal Bathing Routine (OT) Independent Goal Grooming Routine Independent Goal Toilet Hygiene and Independent Clothing Management Routine Goal Toilet Transfer Routine Independent Goal Functional Transfers for Independent ADL Goal Feeding Routine Independent Nutrition: Goals Intervention Goals 1. adequate intake to support hydration and lean body mass without significant wt change 2. maintain serum electrolytes WNL 3. regulation of bowel pattern; no c/o constipation (or diarrhea) Social Work: Goals Discharge Plan Return home with home care svs and family support Potential for Family Training pt's son is involved and supportive Anticipated Discharge Home Destination Discharge With VNS and family support Nursing: Goals Bladder Goal Continent - independent with transfers Bowel Goal Continent - independent with transfers Nutrition Goal Eats 100% of all meals Medication Goal Independent with medications Care Plan: Care Plan ADL's - Improve/Maintain Start: 01/17/19 15:12 Freq: DAILY@0700,1900 Status: Active Target: 02/01/19 Protocol: Activity Type Activity Date Activity User E-Sign Co-Sign Detail Recorded Client Recorded Date Recorded By Document 01/23/19 15:52 [id number] 01/23/19 15:52 [id number] 01/23/19 15:52 PMRU Outcome: ADL's/ADL Transfers Orders/Interventions Occupational Therapy Evaluation & Treatment Communication Tool in Patient Room Device Yes Address Deficits Secondary To: CVA Patient to receive OT 5x/wk for 60-120 Therex min/day Self Care Management Group Therapy Neuromuscular ReEducation UE/LE ADL's with Assist Yes: Marcela ADL Transfers with Assist Yes: Marcela Toileting: Transfers,Clothing Management Yes: Marcela ,Hygeine w/Assist Light Kitchen/Laundry w/Assist Yes: Marcela light meal prep Other Outcome/Goals At end of session, pt seated in recliner chair, call garcia and personal items in reach, setup with lunch tray. Progression Toward Outcome/Goals Progressing DVT Prophylaxis- Improve/Maintain Start: 01/17/19 11:46 Freq: DAILY@0700,1900 Status: Active Target: 02/03/19 Protocol: Activity Type Activity Date Activity User E-Sign Co-Sign Detail Recorded Client Recorded Date Recorded By Document 01/24/19 07:00 [id number] 01/24/19 08:37 [id number] 01/24/19 07:00 PMRU Outcome: DVT Prophylaxis Current DVT Outcome/Goals Remains Free of DVT Complies with DVT Prophylaxis /Treatment Demonstrates Knowledge of DVT Prevention/ Treatment TEDS Stockings on Every AM, Off at HS Progression Toward Outcome/Goals Progressing Discharge Planning - Improve/Maintain Start: 01/17/19 11:46 Freq: DAILY@0700,1900 Status: Active Target: 02/03/19 Protocol: Activity Type Activity Date Activity User E-Sign Co-Sign Detail Recorded Client Recorded Date Recorded By Document 01/24/19 07:00 [id number] 01/24/19 08:37 [id number] 01/24/19 07:00 PMRU Outcome: Discharge Planning Update Patient Family No Current Discharge Planning Outcome/Goals Demonstrates Understanding of Discharge Plan Homecare Referral - See Comment Progression Toward Outcome/Goals Progressing Education-Improve/Maintain Start: 01/17/19 11:46 Freq: DAILY@0700,1900 Status: Active Target: 02/03/19 Protocol: Activity Type Activity Date Activity User E-Sign Co-Sign Detail Recorded Client Recorded Date Recorded By Document 01/24/19 07:00 [id number] 01/24/19 08:37 [id number] 01/24/19 07:00 PMRU Outcome: Education Current Education Outcome/Goals Demonstrate/ Verbalize Understanding of Written Discharge Instructions Demonstrates Skills Encourage Questions Progression Toward Outcome/Goals Progressing /GI-Improve/Maintain Start: 01/17/19 11:46 Freq: DAILY@0700,1900 Status: Active Target: 02/03/19 Protocol: Activity Type Activity Date Activity User E-Sign Co-Sign Detail Recorded Client Recorded Date Recorded By Document 01/24/19 07:00 [id number] 01/24/19 08:37 [id number] 01/24/19 07:00 PMRU Outcome: Genitourinary/ Gastrointestinal Current Gastrointestinal Outcome/Goals Maintain/ Achieve Bowel Regularity in Accordance with Pt's Baseline Remain Free of Emesis Prevent Constipation Bowel Regularity at Home Laxatives as Ordered Progression Toward Outcome/Goals Progressing Current Genitourinary Outcome/Goals Maintain/ Achieve Urinary Continence Maintain/ Achieve Adequate Urinary Output Remain Free of Hospital- Acquired UTI Progression Toward Outcome/Goals Progressing Medication Administration Start: 01/17/19 11:46 Freq: DAILY@699,1900 Status: Active Target: 02/03/19 Protocol: Activity Type Activity Date Activity User E-Sign Co-Sign Detail Recorded Client Recorded Date Recorded By Document 01/24/19 07:00 [id number] 01/24/19 08:37 [id number] 01/24/19 07:00 PMRU Outcome: Medication Administration Assess Patient Knowledge/Teach Med Yes Education for all Meds Current Account Services Coordinator Outcome/Goals Patient Independent with Medication Administration at Home Demonstrates Understanding Progression Towards Outcome/Goals Progressing Is Patient Going Home on Lovenox? No Mobility- Improve/Maintain Start: 01/17/19 17:21 Freq: DAILY@0700,1900 Status: Active Target: 01/18/19 Protocol: Activity Type Activity Date Activity User E-Sign Co-Sign Detail Recorded Client Recorded Date Recorded By Document 01/23/19 16:17 [id number] 01/23/19 16:17 [id number] 01/23/19 16:17 PMRU Outcome: Mobility Physical Therapy Evaluation and Yes Treatment Activity OOB with Assistance Yes Device Yes: FWW Assistance Yes: MIN/MOD Patient to be seen 5x/wk for 60-120 min/ Therex day for: Mobility Training Gait Training W/C Mobility Balance Current Mobility Outcome/Goals Maintain/ Achieve Baseline Mobility Status Improve Mobility Status Demonstrates Proper Use of Assistive Devices Free from Complications of Immobility Progression Toward Outcome/Goals Progressing Bed Mobility Yes: Ind Transfers Yes: Ind with FWW Gait x ft Yes: Ind with FWW x150ft W/C Mobility x ft Yes: Ind x150ft Up/Down Stairs Yes: Set-up x 1flight With HEP Yes: Ind Neurological- Improve/Maintain Start: 01/17/19 11:46 Freq: DAILY@0700,1900 Status: Active Target: 02/03/19 Protocol: Activity Type Activity Date Activity User E-Sign Co-Sign Detail Recorded Client Recorded Date Recorded By Document 01/24/19 07:00 [id number] 01/24/19 08:37 [id number] 01/24/19 07:00 PMRU Outcome: Neurological Weakness/Aphasia Weakness Right Side Current Neurological Outcome/Goals Maintain/ Achieve Baseline Neurological Status Improve Neurological Status Prevent Avoidable Neurological Decline Demonstrate Knowledge of Prevention/Tx of Neuro Disorders/ Complication Maintain/ Improve Strength/ROM Progression Toward Outcome/Goals Progressing Rec Therapy- Improve/Maintain Start: 01/17/19 16:18 Freq: DAILY@0700,1900 Status: Active Target: 01/24/19 Protocol: Activity Type Activity Date Activity User E-Sign Co-Sign Detail Recorded Client Recorded Date Recorded By Document 01/23/19 15:55 [id number] 01/23/19 15:59 [id number] 01/23/19 15:55 PMRU Outcome: Recreation Therapy Current Rec Ther Outcome/Goals Complete Rec Therapy Assessment Meet with Patient Regularly for Support Encourage Leisure Involvement Progression Toward Outcome/Goals Progressing Lack of Progression Comment Leisure visit was provided, pt was working on a puzzle in his room. Pt reports that he has been working on his word searches periodically. Pt has declined formal activities but has been active in pet therapy and independent leisure interests. Pt pleasant and appropriate in discussions. Outcome/Goals Met Complete Rec Therapy Assessment Outcome/Goals Met Comment Recreation assessment complete Safety- Improve/Maintain Start: 01/17/19 07:40 Freq: DAILY@0700,1900 Status: Active Target: 02/03/19 Protocol: Activity Type Activity Date Activity User E-Sign Co-Sign Detail Recorded Client Recorded Date Recorded By Document 01/24/19 07:00 [id number] 01/24/19 08:37 [id number] 01/24/19 07:00 PMRU Outcome: Safety Current Safety Outcome/Goals Remain Free of Injury or Harm Cooperates with Safety Measures for Least Restrictive Environment Prevent Falls/ Injury Progression Toward Outcome/Goals Progressing - Interdisciplinary Staff Present Inorganic Chemistry Professor/Social Work Staff Present: Liya Plata LMSW Nursing Staff Present: Viviana Estrella LPN OT Staff Present: Jumana Peck PT Staff Present: Charley Ovalle Rec Therapy Staff Present: Lidia Bonds MANAGER ENGLISH Staff Present: Elías Guerrero Medicine Note: Length of Stay: 2 1/2 weeks Anticipated Discharge Destination: Home Tentative Discharge Date: 02/03/19 Discharged to: Home
[2019-01-24] MEDS: Magnesium Hydroxide LIQ* 30 ML UDC PO PRN (14:48)
[2019-01-24] MEDS: Atorvastatin* 80 MG TAB PO SCH (16:38)
--- NOTE | 2019-01-24 19:41 | PN ---
Progress Note Date of Service: 01/24/19 Note: NOAH JUAREZ was visited. Therapy notes read and reviewed. He was discussed in interdisciplinary team rounds. He is working with therapy and seems to be progressing and may make it home for [place] Current Medications: Active Medications Generic Name Dose Route Start Last Admin Trade Name Freq PRN Reason Stop Dose Admin Acetaminophen 650 mg 01/17/19 11:45 Tylenol Tab* PO Q6H PRN MILD PAIN or TEMP > 100.4 Amlodipine Besylate 10 mg 01/18/19 09:00 01/24/19 08:19 Norvasc Tab* PO 10 mg DAILY LEX Administration Aspirin 81 mg 01/18/19 09:00 01/24/19 08:19 Aspirin Ec Tab* PO 81 mg DAILY LEX Administration Atorvastatin Calcium 80 mg 01/17/19 17:00 01/24/19 16:38 Lipitor* PO 80 mg 1700 LEX Administration Calcium Carbonate 1,000 mg 01/20/19 16:13 01/20/19 16:18 Tums* PO 1,000 mg QID PRN Administration HEARTBURN Clopidogrel Bisulfate 75 mg 01/18/19 09:00 01/24/19 08:19 Plavix Tab* PO 75 mg DAILY LEX Administration Docusate Sodium 100 mg 01/17/19 21:00 01/24/19 08:19 Colace Cap* PO 100 mg BID LEX Administration Heparin Sodium (Porcine) 5,000 units 01/17/19 14:00 01/24/19 14:34 Heparin Vial(*) SUBCUT 5,000 units Q8HR LEX Administration Lisinopril 20 mg 01/18/19 09:00 01/24/19 08:19 Prinivil Tab* PO 20 mg DAILY LEX Administration Magnesium Hydroxide 30 ml 01/17/19 11:45 01/24/19 14:48 Milk Of Magnesia Liq* PO 30 ml Q6H PRN Administration CONSTIPATION Senna 2 tab 01/17/19 11:45 Senokot 8.6 Mg Tab* PO BEDTIME PRN CONSTIPATION Vital Signs: Vital Signs Temp Pulse Resp BP Pulse Ox 97.6 F 70 16 131/83 97 01/24/19 16:00 01/24/19 16:00 01/24/19 16:00 01/24/19 16:00 01/24/19 16:00 Exam: GENERAL: No acute distress. Alert and appropriate. HEENT: Right homonymous hemianopsia. LUNGS: Clear to auscultation bilaterally HEART: Regular rate and rhythm ABDOMEN: Soft, + bowel sounds, non-tender, non-distended. Chronic periumbilical hernia. EXTREMITIES: No edema. NEUROLOGIC: Dysmetria in RUE on FTN testing. Dyscoordination. Motor 5/5 BUE/ BLE. Sensation intact x4. Assessment/Plan: 1. Right Cerebellar CVA, left occipital lobe CVA: PT/OT. 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 Anticoagulation will be addressed by cardiology; ORTIZ being reviewed at [facility] 3. Hypertension: Norvasc/Lisinopril 4. DVT Prophylaxis: Lovenox 5. Mediastinal Lymphadenopathy: Will need CT of chest after discharge 6. Advance Directives: Full code. His son, Caesar, is his surrogate decision maker 7. Indigestion: Tums prn. 8. Estimated LOS: 02/03/19. 01/24/19 19:42
[2019-01-24] MEDS: Senna TAB 8.6 mg* TAB PO PRN (21:17)
[2019-01-25] MEDS: Heparin VIAL(*) 5000 UNITS/ML VIAL (FIVE THOUSAND) SUBCUT SCH ×3 (05:31→21:18)
[2019-01-25 05:48] LABS: ABS Basophils 0.1 10^3/ul (0-0.2); ABS Eosinophils 0.1 10^3/ul (0-0.6); ABS Lymphocytes 1.7 10^3/ul (1.0-4.8); ABS Monocytes 0.7 10^3/ul (0-0.8); ABS Neutrophils 4.6 10^3/ul (1.5-7.7); Eosinophil % 1.9 %; Hematocrit 42 % (42-52); Hemoglobin 14.2 g/dL (14.0-18.0); Lymphocyte % 23.6 %; Mean Corpuscular HGB Conc 34 g/dL (31-36); Mean Corpuscular Hemoglobin 30 pg (27-31); Mean Corpuscular Volume 90 fL (80-94); Mean Platelet Volume 8.1 fL (7.4-10.4); Nucleated Red Blood Cells % 0.1; Platelet Count 282 10^3/uL (150-450); Red Blood Count 4.69 10^6 /uL (4.18-5.48); Red Cell Distribution Width 14 % (10-15); White Blood Count 7.2 10^3/uL (3.5-10.8)
[2019-01-25 06:03] LABS: Albumin 3.7 g/dL (3.2-5.2); Albumin/Globulin Ratio 1.2 (1-3); BUN/Creatinine Ratio 23.1 (8-20); Calcium 9.1 mg/dL (8.6-10.3); EGFR African American 72.4 (>60); EGFR Non-African American 59.8 (>60); Potassium 4.5 mmol/L (3.5-5.0); Total Bilirubin 0.4 mg/dL (0.2-1.0); Total Protein 6.7 g/dL (6.4-8.9)
[2019-01-25] MEDS: Clopidogrel TAB* 75 MG PO SCH (10:00)
[2019-01-25] MEDS: Aspirin EC TAB* 81 MG TAB.EC PO SCH (10:00)
[2019-01-25] MEDS: amLODIPine TAB* 5 MG PO SCH (10:00)
[2019-01-25] MEDS: Docusate CAP* 100 MG PO SCH ×2 (10:00→21:17)
[2019-01-25] MEDS: Lisinopril TAB* 10 MG PO SCH (10:00)
[2019-01-25] MEDS: Magnesium Hydroxide LIQ* 30 ML UDC PO PRN (10:09)
--- NOTE | 2019-01-25 17:52 | PN ---
Progress Note Date of Service: 01/25/19 Note: NOAH Musa ANN was visited. Therapy notes read and reviewed. I watched him ambulate with physical therapy today. Has difficulty with right foot placement Current Medications: Active Medications Generic Name Dose Route Start Last Admin Trade Name Freq PRN Reason Stop Dose Admin Acetaminophen 650 mg 01/17/19 11:45 Tylenol Tab* PO Q6H PRN MILD PAIN or TEMP > 100.4 Amlodipine Besylate 10 mg 01/18/19 09:00 01/25/19 10:00 Norvasc Tab* PO 10 mg DAILY LEX Administration Aspirin 81 mg 01/18/19 09:00 01/25/19 10:00 Aspirin Ec Tab* PO 81 mg DAILY LEX Administration Atorvastatin Calcium 80 mg 01/17/19 17:00 01/24/19 16:38 Lipitor* PO 80 mg 1700 LEX Administration Calcium Carbonate 1,000 mg 01/20/19 16:13 01/20/19 16:18 Tums* PO 1,000 mg QID PRN Administration HEARTBURN Clopidogrel Bisulfate 75 mg 01/18/19 09:00 01/25/19 10:00 Plavix Tab* PO 75 mg DAILY LEX Administration Docusate Sodium 100 mg 01/17/19 21:00 01/25/19 10:00 Colace Cap* PO 100 mg BID LEX Administration Heparin Sodium (Porcine) 5,000 units 01/17/19 14:00 01/25/19 14:27 Heparin Vial(*) SUBCUT 5,000 units Q8HR LEX Administration Lisinopril 20 mg 01/18/19 09:00 01/25/19 10:00 Prinivil Tab* PO 20 mg DAILY LEX Administration Magnesium Hydroxide 30 ml 01/17/19 11:45 01/25/19 10:09 Milk Of Magnesia Liq* PO 30 ml Q6H PRN Administration CONSTIPATION Senna 2 tab 01/17/19 11:45 01/24/19 21:17 Senokot 8.6 Mg Tab* PO 2 tab BEDTIME PRN Administration CONSTIPATION Vital Signs: Vital Signs Temp Pulse Resp BP Pulse Ox 97.2 F 76 22 125/78 97 01/25/19 16:46 01/25/19 16:46 01/25/19 16:46 01/25/19 16:46 01/25/19 08:00 Lab Results: Laboratory Results - last 24 hr 01/25/19 01/25/19 05:09 05:21 WBC 7.2 RBC 4.69 Hgb 14.2 Hct 42 MCV 90 MCH 30 MCHC 34 RDW 14 Plt Count 282 MPV 8.1 Neut % (Auto) 63.9 Lymph % (Auto) 23.6 [place] % (Auto) 9.7 Eos % (Auto) 1.9 Baso % (Auto) 0.9 Absolute Neuts (auto) 4.6 Absolute Lymphs (auto) 1.7 Absolute Monos (auto) 0.7 Absolute Eos (auto) 0.1 Absolute Basos (auto) 0.1 Absolute Nucleated RBC 0.0 Nucleated RBC % 0.1 Sodium 137 Potassium 4.5 Chloride 101 Carbon Dioxide 29 Anion Gap 7 BUN 28 H Creatinine 1.21 H Est GFR ( Amer) 72.4 Est GFR (Non-Af Amer) 59.8 BUN/Creatinine Ratio 23.1 H Glucose 108 H Calcium 9.1 Total Bilirubin 0.40 AST 22 ALT 36 Alkaline Phosphatase 93 Total Protein 6.7 Albumin 3.7 Globulin 3.0 Albumin/Globulin Ratio 1.2 Exam: GENERAL: No acute distress. Alert and appropriate. HEENT: Right homonymous hemianopsia. LUNGS: Clear to auscultation bilaterally HEART: Regular rate and rhythm ABDOMEN: Soft, + bowel sounds, non-tender, non-distended. Chronic periumbilical hernia. EXTREMITIES: No edema. NEUROLOGIC: Dysmetria in RUE on FTN testing. Dyscoordination. Motor 5/5 BUE/ BLE. Sensation intact x4. Assessment/Plan: 1. Right Cerebellar CVA, left occipital lobe CVA: PT/OT. 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 May do ASA or Plavix alone after. ORTIZ being reviewed at [place] 3. Hypertension: Norvasc/Lisinopril 4. DVT Prophylaxis: Lovenox 5. Mediastinal Lymphadenopathy: Will need CT of chest after discharge 6. Advance Directives: Full code. His son, Caesar, is his surrogate decision maker 7. Indigestion: Tums prn. 8. Estimated LOS: 02/03/19. 01/25/19 17:52
[2019-01-25] MEDS: Atorvastatin* 80 MG TAB PO SCH (18:24)
[2019-01-26] MEDS: Heparin VIAL(*) 5000 UNITS/ML VIAL (FIVE THOUSAND) SUBCUT SCH ×3 (05:46→22:33)
[2019-01-26] MEDS: Aspirin EC TAB* 81 MG TAB.EC PO SCH (08:30)
[2019-01-26] MEDS: Clopidogrel TAB* 75 MG PO SCH (08:30)
[2019-01-26] MEDS: Docusate CAP* 100 MG PO SCH ×2 (08:30→22:35)
[2019-01-26] MEDS: Lisinopril TAB* 10 MG PO SCH (08:31)
[2019-01-26] MEDS: amLODIPine TAB* 5 MG PO SCH (08:31)
[2019-01-26] MEDS: Atorvastatin* 80 MG TAB PO SCH (17:37)
--- NOTE | 2019-01-26 17:52 | PN ---
Progress Note Date of Service: 01/26/19 Note: NOAH Dimple JUAREZ was visited. Therapy notes read and reviewed. Still with visual field cut, trouble coordinating right arm and leg movements. Current Medications: Active Medications Generic Name Dose Route Start Last Admin Trade Name Freq PRN Reason Stop Dose Admin Acetaminophen 650 mg 01/17/19 11:45 Tylenol Tab* PO Q6H PRN MILD PAIN or TEMP > 100.4 Amlodipine Besylate 10 mg 01/18/19 09:00 01/26/19 08:31 Norvasc Tab* PO 10 mg DAILY LEX Administration Aspirin 81 mg 01/18/19 09:00 01/26/19 08:30 Aspirin Ec Tab* PO 81 mg DAILY LEX Administration Atorvastatin Calcium 80 mg 01/17/19 17:00 01/26/19 17:37 Lipitor* PO 80 mg 1700 LEX Administration Calcium Carbonate 1,000 mg 01/20/19 16:13 01/20/19 16:18 Tums* PO 1,000 mg QID PRN Administration HEARTBURN Clopidogrel Bisulfate 75 mg 01/18/19 09:00 01/26/19 08:30 Plavix Tab* PO 75 mg DAILY LEX Administration Docusate Sodium 100 mg 01/17/19 21:00 01/26/19 08:30 Colace Cap* PO 100 mg BID LEX Administration Heparin Sodium (Porcine) 5,000 units 01/17/19 14:00 01/26/19 14:32 Heparin Vial(*) SUBCUT 5,000 units Q8HR LEX Administration Lisinopril 20 mg 01/18/19 09:00 01/26/19 08:31 Prinivil Tab* PO 20 mg DAILY LEX Administration Magnesium Hydroxide 30 ml 01/17/19 11:45 01/25/19 10:09 Milk Of Magnesia Liq* PO 30 ml Q6H PRN Administration CONSTIPATION Senna 2 tab 01/17/19 11:45 01/24/19 21:17 Senokot 8.6 Mg Tab* PO 2 tab BEDTIME PRN Administration CONSTIPATION Vital Signs: Vital Signs Temp Pulse Resp BP Pulse Ox 98.3 F 127 22 108/77 97 01/26/19 16:00 01/26/19 16:00 01/26/19 16:00 01/26/19 16:00 01/26/19 16:00 Exam: GENERAL: No acute distress. Alert and appropriate. HEENT: Right homonymous hemianopsia. LUNGS: Clear to auscultation bilaterally HEART: Regular rate and rhythm ABDOMEN: Soft, + bowel sounds, non-tender, non-distended. Chronic periumbilical hernia. EXTREMITIES: No edema. NEUROLOGIC: Dysmetria in RUE on FTN testing. Dyscoordination. Motor 5/5 BUE/ BLE. Sensation intact x4. Assessment/Plan: 1. Right Cerebellar CVA, left occipital lobe CVA: PT/OT. 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 May do ASA or Plavix alone after. ORTIZ being reviewed at [facility] 3. Hypertension: Norvasc/Lisinopril 4. DVT Prophylaxis: Lovenox 5. Mediastinal Lymphadenopathy: Will need CT of chest after discharge 6. Advance Directives: Full code. His son, Caesar, is his surrogate decision maker 7. Indigestion: Tums prn. 8. Estimated LOS: 02/03/19. 01/26/19 17:53
[2019-01-27] MEDS: Heparin VIAL(*) 5000 UNITS/ML VIAL (FIVE THOUSAND) SUBCUT SCH ×3 (06:15→21:27)
[2019-01-27] MEDS: Lisinopril TAB* 10 MG PO SCH (08:54)
[2019-01-27] MEDS: amLODIPine TAB* 5 MG PO SCH (08:54)
[2019-01-27] MEDS: Clopidogrel TAB* 75 MG PO SCH (08:54)
[2019-01-27] MEDS: Docusate CAP* 100 MG PO SCH ×2 (08:54→21:27)
[2019-01-27] MEDS: Aspirin EC TAB* 81 MG TAB.EC PO SCH (08:54)
--- NOTE | 2019-01-27 16:10 | PN ---
Progress Note Date of Service: 01/27/19 Note: NOAH JUAREZ was visited. Therapy notes read and reviewed. He has no specific complaints. Still with dyscoordination of right arm and leg Current Medications: Active Medications Generic Name Dose Route Start Last Admin Trade Name Freq PRN Reason Stop Dose Admin Acetaminophen 650 mg 01/17/19 11:45 Tylenol Tab* PO Q6H PRN MILD PAIN or TEMP > 100.4 Amlodipine Besylate 10 mg 01/18/19 09:00 01/27/19 08:54 Norvasc Tab* PO 10 mg DAILY LEX Administration Aspirin 81 mg 01/18/19 09:00 01/27/19 08:54 Aspirin Ec Tab* PO 81 mg DAILY LEX Administration Atorvastatin Calcium 80 mg 01/17/19 17:00 01/26/19 17:37 Lipitor* PO 80 mg 1700 LEX Administration Calcium Carbonate 1,000 mg 01/20/19 16:13 01/20/19 16:18 Tums* PO 1,000 mg QID PRN Administration HEARTBURN Clopidogrel Bisulfate 75 mg 01/18/19 09:00 01/27/19 08:54 Plavix Tab* PO 75 mg DAILY LEX Administration Docusate Sodium 100 mg 01/17/19 21:00 01/27/19 08:54 Colace Cap* PO 100 mg BID LEX Administration Heparin Sodium (Porcine) 5,000 units 01/17/19 14:00 01/27/19 14:35 Heparin Vial(*) SUBCUT 5,000 units Q8HR LEX Administration Lisinopril 20 mg 01/18/19 09:00 01/27/19 08:54 Prinivil Tab* PO 20 mg DAILY LEX Administration Magnesium Hydroxide 30 ml 01/17/19 11:45 01/25/19 10:09 Milk Of Magnesia Liq* PO 30 ml Q6H PRN Administration CONSTIPATION Senna 2 tab 01/17/19 11:45 01/24/19 21:17 Senokot 8.6 Mg Tab* PO 2 tab BEDTIME PRN Administration CONSTIPATION Vital Signs: Vital Signs Temp Pulse Resp BP Pulse Ox 98.2 F 75 20 128/64 97 01/27/19 15:00 01/27/19 15:00 01/27/19 15:00 01/27/19 15:00 01/27/19 15:00 Exam: GENERAL: No acute distress. Alert and appropriate. HEENT: Right homonymous hemianopsia. LUNGS: Clear to auscultation bilaterally HEART: Regular rate and rhythm ABDOMEN: Soft, + bowel sounds, non-tender, non-distended. Chronic periumbilical hernia. EXTREMITIES: No edema. NEUROLOGIC: Dysmetria in RUE on FTN testing. Dyscoordination. Motor 5/5 BUE/ BLE. Sensation intact x4. Assessment/Plan: 1. Right Cerebellar CVA, left occipital lobe CVA: PT/OT. 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 May do ASA or Plavix alone after. ORTIZ being reviewed at [facility] 3. Hypertension: Norvasc/Lisinopril 4. DVT Prophylaxis: Lovenox 5. Mediastinal Lymphadenopathy: Will need CT of chest after discharge 6. Advance Directives: Full code. His son, Caesar, is his surrogate decision maker 7. Indigestion: Tums prn. 8. Estimated LOS: 02/03/19. 01/27/19 16:10
[2019-01-27] MEDS: Atorvastatin* 80 MG TAB PO SCH (16:50)
[2019-01-28] MEDS: Heparin VIAL(*) 5000 UNITS/ML VIAL (FIVE THOUSAND) SUBCUT SCH ×3 (05:39→22:08)
[2019-01-28] MEDS: Clopidogrel TAB* 75 MG PO SCH (09:32)
[2019-01-28] MEDS: Aspirin EC TAB* 81 MG TAB.EC PO SCH (09:32)
[2019-01-28] MEDS: Lisinopril TAB* 10 MG PO SCH (09:32)
[2019-01-28] MEDS: amLODIPine TAB* 5 MG PO SCH (09:32)
[2019-01-28] MEDS: Docusate CAP* 100 MG PO SCH ×2 (09:32→22:08)
[2019-01-28] MEDS: Atorvastatin* 80 MG TAB PO SCH (17:10)
--- NOTE | 2019-01-28 17:34 | PN ---
Progress Note Date of Service: 01/28/19 Note: NOAH JUAREZ was visited. Therapy notes read and reviewed. Doing well so far. Right leg and arm still show dyscoordination. Current Medications: Active Medications Generic Name Dose Route Start Last Admin Trade Name Freq PRN Reason Stop Dose Admin Acetaminophen 650 mg 01/17/19 11:45 Tylenol Tab* PO Q6H PRN MILD PAIN or TEMP > 100.4 Amlodipine Besylate 10 mg 01/18/19 09:00 01/28/19 09:32 Norvasc Tab* PO 10 mg DAILY LEX Administration Aspirin 81 mg 01/18/19 09:00 01/28/19 09:32 Aspirin Ec Tab* PO 81 mg DAILY LEX Administration Atorvastatin Calcium 80 mg 01/17/19 17:00 01/28/19 17:10 Lipitor* PO 80 mg 1700 LEX Administration Calcium Carbonate 1,000 mg 01/20/19 16:13 01/20/19 16:18 Tums* PO 1,000 mg QID PRN Administration HEARTBURN Clopidogrel Bisulfate 75 mg 01/18/19 09:00 01/28/19 09:32 Plavix Tab* PO 75 mg DAILY LEX Administration Docusate Sodium 100 mg 01/17/19 21:00 01/28/19 09:32 Colace Cap* PO 100 mg BID LEX Administration Heparin Sodium (Porcine) 5,000 units 01/17/19 14:00 01/28/19 13:51 Heparin Vial(*) SUBCUT 5,000 units Q8HR LEX Administration Lisinopril 20 mg 01/18/19 09:00 01/28/19 09:32 Prinivil Tab* PO 20 mg DAILY LEX Administration Magnesium Hydroxide 30 ml 01/17/19 11:45 01/25/19 10:09 Milk Of Magnesia Liq* PO 30 ml Q6H PRN Administration CONSTIPATION Senna 2 tab 01/17/19 11:45 01/24/19 21:17 Senokot 8.6 Mg Tab* PO 2 tab BEDTIME PRN Administration CONSTIPATION Vital Signs: Vital Signs Temp Pulse Resp BP Pulse Ox 98.2 F 73 16 131/97 97 01/28/19 05:39 01/28/19 05:39 01/28/19 17:16 01/28/19 05:39 01/28/19 08:00 Exam: GENERAL: No acute distress. Alert and appropriate. HEENT: Right homonymous hemianopsia. LUNGS: Clear to auscultation bilaterally HEART: Regular rate and rhythm ABDOMEN: Soft, + bowel sounds, non-tender, non-distended. Chronic periumbilical hernia. EXTREMITIES: No edema. NEUROLOGIC: Dysmetria in RUE on FTN testing. Dyscoordination. Motor 5/5 BUE/ BLE. Sensation intact x4. Assessment/Plan: 1. Right Cerebellar CVA, left occipital lobe CVA: PT/OT. 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 May do ASA or Plavix alone after. ORTIZ being reviewed at [facility] [place] 3. Hypertension: Norvasc/Lisinopril 4. DVT Prophylaxis: Lovenox 5. Mediastinal Lymphadenopathy: Will need CT of chest after discharge 6. Advance Directives: Full code. His son, Caesar, is his surrogate decision maker 7. Indigestion: Tums prn. 8. Estimated LOS: 02/03/19. 01/28/19 17:34
[2019-01-28] MEDS: Senna TAB 8.6 mg* TAB PO PRN (22:08)
[2019-01-29] MEDS: Heparin VIAL(*) 5000 UNITS/ML VIAL (FIVE THOUSAND) SUBCUT SCH ×3 (05:38→22:00)
[2019-01-29] MEDS: Lisinopril TAB* 10 MG PO SCH (08:56)
[2019-01-29] MEDS: Clopidogrel TAB* 75 MG PO SCH (08:56)
[2019-01-29] MEDS: Docusate CAP* 100 MG PO SCH ×2 (08:56→22:00)
[2019-01-29] MEDS: Aspirin EC TAB* 81 MG TAB.EC PO SCH (08:56)
[2019-01-29] MEDS: amLODIPine TAB* 5 MG PO SCH (08:56)
[2019-01-29] MEDS: Magnesium Hydroxide LIQ* 30 ML UDC PO PRN (09:06)
[2019-01-29] MEDS: Atorvastatin* 80 MG TAB PO SCH (17:28)
--- NOTE | 2019-01-29 20:47 | PN ---
Progress Note Date of Service: 01/29/19 Note: NOAH JUAREZ was visited. Nursing notes read and reviewed. He has no complaints today. Feels pretty good Current Medications: Active Medications Generic Name Dose Route Start Last Admin Trade Name Freq PRN Reason Stop Dose Admin Acetaminophen 650 mg 01/17/19 11:45 Tylenol Tab* PO Q6H PRN MILD PAIN or TEMP > 100.4 Amlodipine Besylate 10 mg 01/18/19 09:00 01/29/19 08:56 Norvasc Tab* PO 10 mg DAILY LEX Administration Aspirin 81 mg 01/18/19 09:00 01/29/19 08:56 Aspirin Ec Tab* PO 81 mg DAILY LEX Administration Atorvastatin Calcium 80 mg 01/17/19 17:00 01/29/19 17:28 Lipitor* PO 80 mg 1700 LEX Administration Calcium Carbonate 1,000 mg 01/20/19 16:13 01/20/19 16:18 Tums* PO 1,000 mg QID PRN Administration HEARTBURN Clopidogrel Bisulfate 75 mg 01/18/19 09:00 01/29/19 08:56 Plavix Tab* PO 75 mg DAILY LEX Administration Docusate Sodium 100 mg 01/17/19 21:00 01/29/19 08:56 Colace Cap* PO 100 mg BID LEX Administration Heparin Sodium (Porcine) 5,000 units 01/17/19 14:00 01/29/19 14:01 Heparin Vial(*) SUBCUT 5,000 units Q8HR LEX Administration Lisinopril 20 mg 01/18/19 09:00 01/29/19 08:56 Prinivil Tab* PO 20 mg DAILY LEX Administration Magnesium Hydroxide 30 ml 01/17/19 11:45 01/29/19 09:06 Milk Of Magnesia Liq* PO 30 ml Q6H PRN Administration CONSTIPATION Senna 2 tab 01/17/19 11:45 01/28/19 22:08 Senokot 8.6 Mg Tab* PO 2 tab BEDTIME PRN Administration CONSTIPATION Vital Signs: Vital Signs Temp Pulse Resp BP Pulse Ox 97.4 F 75 14 117/79 95 01/29/19 16:06 01/29/19 16:06 01/29/19 17:34 01/29/19 16:06 01/29/19 17:34 Exam: GENERAL: No acute distress. Alert and appropriate. HEENT: Right homonymous hemianopsia. LUNGS: Clear to auscultation bilaterally HEART: Regular rate and rhythm ABDOMEN: Soft, + bowel sounds, non-tender, non-distended. Chronic periumbilical hernia. EXTREMITIES: No edema. NEUROLOGIC: Dysmetria in RUE on FTN testing. Dyscoordination. Motor 5/5 BUE/ BLE. Sensation intact x4. Assessment/Plan: 1. Right Cerebellar CVA, left occipital lobe CVA: PT/OT. ASA/Plavix/Lipitor 2. Fibroelastoma of Aortic and Mitral Valve: ASA/Plavix for 21 days, today is day 17. May do ASA or Plavix alone after or continue DAPT. ORTIZ being reviewed 3. Hypertension: Norvasc/Lisinopril 4. DVT Prophylaxis: Lovenox 5. Mediastinal Lymphadenopathy: Will need CT of chest after discharge 6. Advance Directives: Full code. His son, Caesar, is his surrogate decision maker 7. Indigestion: Tums prn. 8. Estimated LOS: 02/03/19. 01/29/19 20:47 01/29/19 20:49
[2019-01-30] MEDS: Heparin VIAL(*) 5000 UNITS/ML VIAL (FIVE THOUSAND) SUBCUT SCH ×3 (05:35→21:35)
[2019-01-30] MEDS: Clopidogrel TAB* 75 MG PO SCH (08:27)
[2019-01-30] MEDS: Docusate CAP* 100 MG PO SCH ×2 (08:27→21:34)
[2019-01-30] MEDS: Lisinopril TAB* 10 MG PO SCH (08:27)
[2019-01-30] MEDS: Aspirin EC TAB* 81 MG TAB.EC PO SCH (08:27)
[2019-01-30] MEDS: amLODIPine TAB* 5 MG PO SCH (08:27)
[2019-01-30] MEDS: Atorvastatin* 80 MG TAB PO SCH (16:46)
--- NOTE | 2019-01-30 16:56 | PN ---
Progress Note Date of Service: 01/30/19 Note: NOAH JUAREZ was visited. Therapy notes read and reviewed. Feels like he is doing well. Moving pretty well. In good spirits Current Medications: Active Medications Generic Name Dose Route Start Last Admin Trade Name Freq PRN Reason Stop Dose Admin Acetaminophen 650 mg 01/17/19 11:45 Tylenol Tab* PO Q6H PRN MILD PAIN or TEMP > 100.4 Amlodipine Besylate 10 mg 01/18/19 09:00 01/30/19 08:27 Norvasc Tab* PO 10 mg DAILY LEX Administration Aspirin 81 mg 01/18/19 09:00 01/30/19 08:27 Aspirin Ec Tab* PO 81 mg DAILY ELX Administration Atorvastatin Calcium 80 mg 01/17/19 17:00 01/30/19 16:46 Lipitor* PO 80 mg 1700 LEX Administration Calcium Carbonate 1,000 mg 01/20/19 16:13 01/20/19 16:18 Tums* PO 1,000 mg QID PRN Administration HEARTBURN Clopidogrel Bisulfate 75 mg 01/18/19 09:00 01/30/19 08:27 Plavix Tab* PO 75 mg DAILY LEX Administration Docusate Sodium 100 mg 01/17/19 21:00 01/30/19 08:27 Colace Cap* PO 100 mg BID LEX Administration Heparin Sodium (Porcine) 5,000 units 01/17/19 14:00 01/30/19 14:18 Heparin Vial(*) SUBCUT 5,000 units Q8HR LEX Administration Lisinopril 20 mg 01/18/19 09:00 01/30/19 08:27 Prinivil Tab* PO 20 mg DAILY LEX Administration Magnesium Hydroxide 30 ml 01/17/19 11:45 01/29/19 09:06 Milk Of Magnesia Liq* PO 30 ml Q6H PRN Administration CONSTIPATION Senna 2 tab 01/17/19 11:45 01/28/19 22:08 Senokot 8.6 Mg Tab* PO 2 tab BEDTIME PRN Administration CONSTIPATION Vital Signs: Vital Signs Temp Pulse Resp BP Pulse Ox 97.4 F 71 16 130/82 98 01/30/19 05:29 01/30/19 05:29 01/30/19 05:29 01/30/19 06:00 01/30/19 05:29 Exam: GENERAL: No acute distress. Alert and appropriate. HEENT: Right homonymous hemianopsia, better. LUNGS: Clear to auscultation bilaterally HEART: Regular rate and rhythm ABDOMEN: Soft, + bowel sounds, non-tender, non-distended. Chronic periumbilical hernia. EXTREMITIES: No edema. NEUROLOGIC: Dysmetria in RUE on FTN testing. Dyscoordination. Motor 5/5 BUE/ BLE. Sensation intact x4. Assessment/Plan: 1. Right Cerebellar CVA, left occipital lobe CVA: PT/OT. ASA/Plavix/Lipitor 2. Fibroelastoma of Aortic and Mitral Valve: ASA/Plavix for 21 days, today is day 18. May do ASA or Plavix alone after or continue DAPT. ORTIZ being reviewed 3. Hypertension: Norvasc/Lisinopril 4. DVT Prophylaxis: Lovenox 5. Mediastinal Lymphadenopathy: Will need CT of chest after discharge 6. Advance Directives: Full code. His son, Caesar, is his surrogate decision maker 7. Indigestion: Tums prn. 8. Estimated LOS: 02/03/19. 01/30/19 16:56
[2019-01-31] MEDS: Heparin VIAL(*) 5000 UNITS/ML VIAL (FIVE THOUSAND) SUBCUT SCH ×3 (05:04→21:24)
[2019-01-31] MEDS: Ondansetron ODT TAB* 4 MG PO PRN ×2 (10:02→16:23)
[2019-01-31] MEDS: Lisinopril TAB* 10 MG PO SCH (12:13)
[2019-01-31] MEDS: Docusate CAP* 100 MG PO SCH ×2 (12:14→21:24)
[2019-01-31] MEDS: amLODIPine TAB* 5 MG PO SCH (12:14)
[2019-01-31] MEDS: Aspirin EC TAB* 81 MG TAB.EC PO SCH (12:14)
[2019-01-31] MEDS: Clopidogrel TAB* 75 MG PO SCH (12:14)
--- NOTE | 2019-01-31 12:39 | PMRUTEAM ---
PMRU: Team Meeting Current Status: Physical Therapy: Current Status Current Rolling Status Independent Current Supine <-> Sit Status Independent Current Sit <-> Stand Status Supervision/Touching Current Bed <-> Chair Status Supervision/Touching Transfer/Bed Mobility Rolling Walker Recommended Devices Current Picking Up Object Partial/Moderate Status Current Car Transfer Status Partial/Moderate Current Ambulation Assistance Supervision/Touching Status Ambulation Assistive Device Rolling Walker Ambulation Conditions Two or More Turns Current Ambulation Distance 150' Manual Wheelchair Control/ Bilateral UE's Technique Current Wheelchair Propulsion Supervision/Touching Ability Status Wheelchair Distance (ft) 150 Current Stair Climbing Status Supervision/Touching Stair Climbing Assistive Left Railing,Right Railing Devices Number of Stairs Climbed 5 Current Curb Assistance Status Partial/Moderate Curb Assistive Devices Rolling Walker Objective Comments Pt demonstrates improved comfort with B weight shift and RLE control throughout session. Pt requires cues to improve L weight shift to improve R step quality. Occupational Therapy: Current Status Current Upper Body Dressing Setup or Clean-up Assist Status Current Lower Body Dressing Supervision/Touching Status Current Footwear Status Supervision/Touching Current Bathing Status Supervision/Touching Current Grooming Status Setup or Clean-up Assist Current Toileting Status Supervision/Touching Current Toilet Transfer Status Supervision/Touching Current Eating Status Independent Nursing: Current Status Skin Deviations [Left Upper Other Chest] Skin Deviations [Generalized] Other Skin Deviation Description [ open to air Left Upper Chest] Skin Deviation Description [ dry skin Generalized] Bladder Current Status Continent - CGA with transfers Bowel Current Status Continent. last bm 01/29/19 Nutrition Current Status nausea this am. zofran given with good relief Medication Current Status Needs reinforcement with medications Rec Therapy: Current Status Summary of Assessment and Recreation therapy assessement complete and pt Clinical Impression aware of services available. Pt is open to leisure visits and pet therapy. Pt has declined formal recreational activities, but has participated in independent leisure interests such as word searches, [employer], and reading magazines. Treatment Goals Pt will engage in leisure activities while on the unit as tolerated Treatment Plan Provide recreation therapy services and encourage involvement Social Work: Current Status Discharge Plan Return home with home care svs and family support Potential for Family Training pt's son is involved and supportive Anticipated Discharge Home Destination Discharge With VNS and family support Nutrition: Current Status Monitoring Pt continues on heart healthy diet consuming avg 86% at meals past 3 days. No GI c/o, such as n/v/d /ab pain. Last BM documented 01/29; BMs not consistent - receiving bowel regimen. Skin intact. Labs: electrolytes remain wnl; no meds changes noted. Will remain available as needed. Goals: Physical Therapy: Goals Goals to Be Accomplished in ( 14-21 Days) Goal: Rolling Assistance Independent Goal Supine <-> Sit Status Independent Goal Sit <-> Stand Status Independent Goal Bed <-> Chair Status Independent Transfer/Bed Mobility Rolling Walker Recommended Devices Goal: Picking Up Object Independent Goal: Car Transfer Status Setup or Clean-up Assist Goal: Ambulation Assistance Independent Ambulation Assistive Devices Rolling Walker Ambulation Distance (ft) 150 Goal: Wheelchair Propulsion Independent Ability Wheelchair Distance (ft) 150' Goal: Stairs Assistance Setup or Clean-up Assist Stairs Recommended Devices Two Rails Number of Stairs 10 Goal: Curb Assistance Independent Goal: Home Exercise Program Independent Assistance Occupational Therapy: Goals Goals to be Completed in (Days 10-14 ) Goal Upper Body Dressing Independent Routine Goal Lower Body Dressing Independent Routine Goal Footwear Status Independent Goal Bathing Routine (OT) Independent Goal Grooming Routine Independent Goal Toilet Hygiene and Independent Clothing Management Routine Goal Toilet Transfer Routine Independent Goal Functional Transfers for Independent ADL Goal Feeding Routine Independent Nutrition: Goals Intervention Goals 1. adequate intake to support hydration and lean body mass without significant wt change 2. maintain serum electrolytes WNL 3. regulation of bowel pattern; no c/o constipation (or diarrhea) Social Work: Goals Discharge Plan Return home with home care svs and family support Potential for Family Training pt's son is involved and supportive Anticipated Discharge Home Destination Discharge With VNS and family support Nursing: Goals Bladder Goal Continent - independent with transfers Bowel Goal Continent - independent with transfers Nutrition Goal Eats 100% of all meals Medication Goal Independent with medications Care Plan: Care Plan ADL's - Improve/Maintain Start: 01/17/19 15:12 Freq: DAILY@0700,1900 Status: Active Target: 02/01/19 Protocol: Activity Type Activity Date Activity User E-Sign Co-Sign Detail Recorded Client Recorded Date Recorded By Document 01/30/19 16:25 [id number] 01/30/19 16:25 [id number] 01/30/19 16:25 PMRU Outcome: ADL's/ADL Transfers Orders/Interventions Occupational Therapy Evaluation & Treatment Communication Tool in Patient Room Device Yes Address Deficits Secondary To: CVA Patient to receive OT 5x/wk for 60-120 Therex min/day Self Care Management Group Therapy Neuromuscular ReEducation UE/LE ADL's with Assist Yes: Marcela ADL Transfers with Assist Yes: Marcela Toileting: Transfers,Clothing Management Yes: Marcela ,Hygeine w/Assist Light Kitchen/Laundry w/Assist Yes: Marcela light meal prep Other Outcome/Goals Pt participated well in treatment session, able to participate in paper/pencil tasks, appears to have some improvement in visual field cut and also compensates well for reading/writing activities. Progression Toward Outcome/Goals Progressing DVT Prophylaxis- Improve/Maintain Start: 01/17/19 11:46 Freq: DAILY@0700,1900 Status: Active Target: 02/03/19 Protocol: Activity Type Activity Date Activity User E-Sign Co-Sign Detail Recorded Client Recorded Date Recorded By Document 01/31/19 08:00 [id number] [id number] 01/31/19 11:32 [id number] 01/31/19 08:00 PMRU Outcome: DVT Prophylaxis Current DVT Outcome/Goals Remains Free of DVT Complies with DVT Prophylaxis /Treatment Demonstrates Knowledge of DVT Prevention/ Treatment Progression Toward Outcome/Goals Progressing Discharge Planning - Improve/Maintain Start: 01/17/19 11:46 Freq: DAILY@699,[id number] Status: Active Target: 02/03/19 Protocol: Activity Type Activity Date Activity User E-Sign Co-Sign Detail Recorded Client Recorded Date Recorded By Document 01/31/19 08:00 [id number] [id number] 01/31/19 11:32 [id number] 01/31/19 08:00 PMRU Outcome: Discharge Planning Current Discharge Planning Outcome/Goals Demonstrates Understanding of Discharge Plan Homecare Referral - See Comment Progression Toward Outcome/Goals Progressing Education-Improve/Maintain Start: 01/17/19 11:46 Freq: DAILY@00,1900 Status: Active Target: 02/03/19 Protocol: Activity Type Activity Date Activity User E-Sign Co-Sign Detail Recorded Client Recorded Date Recorded By Document 01/31/19 08:00 [id number] [email or web address] 01/31/19 11:32 [id number] 01/31/19 08:00 PMRU Outcome: Education Current Education Outcome/Goals Demonstrate/ Verbalize Understanding of Written Discharge Instructions Demonstrates Skills Encourage Questions Progression Toward Outcome/Goals Progressing /GI-Improve/Maintain Start: 01/17/19 11:46 Freq: DAILY@0700,1900 Status: Active Target: 02/03/19 Protocol: Activity Type Activity Date Activity User E-Sign Co-Sign Detail Recorded Client Recorded Date Recorded By Document 01/31/19 08:00 [id number] 01/31/19 11:32 [id number] 01/31/19 08:00 PMRU Outcome: Genitourinary/ Gastrointestinal Current Gastrointestinal Outcome/Goals Maintain/ Achieve Bowel Regularity in Accordance with Pt's Baseline Remain Free of Emesis Prevent Constipation Bowel Regularity at Home Laxatives as Ordered Progression Toward Outcome/Goals Progressing Current Genitourinary Outcome/Goals Maintain/ Achieve Urinary Continence Maintain/ Achieve Adequate Urinary Output Remain Free of Hospital- Acquired UTI Progression Toward Outcome/Goals Progressing Medication Administration Start: 01/17/19 11:46 Freq: DAILY@0700,1900 Status: Active Target: 02/03/19 Protocol: Activity Type Activity Date Activity User E-Sign Co-Sign Detail Recorded Client Recorded Date Recorded By Document 01/31/19 08:00 [id number] 01/31/19 11:32 [id number] 01/31/19 08:00 PMRU Outcome: Medication Administration Assess Patient Knowledge/Teach Med Yes Education for all Meds Current 3Rd Mate Outcome/Goals Patient Independent with Medication Administration at Home Demonstrates Understanding Progression Towards Outcome/Goals Progressing Is Patient Going Home on Lovenox? No Mobility- Improve/Maintain Start: 01/17/19 17:21 Freq: DAILY@0700,1900 Status: Active Target: 01/18/19 Protocol: Activity Type Activity Date Activity User E-Sign Co-Sign Detail Recorded Client Recorded Date Recorded By Document 01/30/19 14:31 [id number] [id number] 01/30/19 14:31 [id number] 01/30/19 14:31 PMRU Outcome: Mobility Physical Therapy Evaluation and Yes Treatment Activity OOB with Assistance Yes Device Yes: FWW Assistance Yes: MIN/MOD Patient to be seen 5x/wk for 60-120 min/ Therex day for: Mobility Training Gait Training W/C Mobility Balance Current Mobility Outcome/Goals Maintain/ Achieve Baseline Mobility Status Improve Mobility Status Demonstrates Proper Use of Assistive Devices Free from Complications of Immobility Progression Toward Outcome/Goals Progressing Bed Mobility Yes: Ind Transfers Yes: Ind with FWW Gait x ft Yes: Ind with FWW x150ft W/C Mobility x ft Yes: Ind x150ft Up/Down Stairs Yes: Set-up x 1flight With HEP Yes: Ind Neurological- Improve/Maintain Start: 01/17/19 11:46 Freq: DAILY@0700,1900 Status: Active Target: 02/03/19 Protocol: Activity Type Activity Date Activity User E-Sign Co-Sign Detail Recorded Client Recorded Date Recorded By Document 01/31/19 08:00 [id number] 01/31/19 11:32 [id number] 01/31/19 08:00 PMRU Outcome: Neurological Weakness/Aphasia Weakness Right Side Current Neurological Outcome/Goals Maintain/ Achieve Baseline Neurological Status Improve Neurological Status Prevent Avoidable Neurological Decline Demonstrate Knowledge of Prevention/Tx of Neuro Disorders/ Complication Maintain/ Improve Strength/ROM Progression Toward Outcome/Goals Progressing Rec Therapy- Improve/Maintain Start: 01/17/19 16:18 Freq: DAILY@0700,190 Status: Active Target: 02/03/19 Protocol: Activity Type Activity Date Activity User E-Sign Co-Sign Detail Recorded Client Recorded Date Recorded By Document 01/30/19 16:07 [id number] [email or web address] 01/30/19 16:11 [id number] 01/30/19 16:07 PMRU Outcome: Recreation Therapy Current Rec Ther Outcome/Goals Complete Rec Therapy Assessment Meet with Patient Regularly for Support Encourage Leisure Involvement Progression Toward Outcome/Goals Progressing Lack of Progression Comment Pt continues to be open to leisure visits. Pt asked about more independent leisure materials, word search puzzles , which were provided to him . Pt has been playing [employer] with a deck of cards in his room and enjoying his motorcycle magazines. Outcome/Goals Met Complete Rec Therapy Assessment Outcome/Goals Met Comment Recreation Therapy assessement is complete Safety- Improve/Maintain Start: 01/17/19 07:40 Freq: DAILY@0700,1900 Status: Active Target: 02/03/19 Protocol: Activity Type Activity Date Activity User E-Sign Co-Sign Detail Recorded Client Recorded Date Recorded By Document 01/31/19 08:00 [id number] 01/31/19 11:32 [id number] 01/31/19 08:00 PMRU Outcome: Safety Current Safety Outcome/Goals Remain Free of Injury or Harm Cooperates with Safety Measures for Least Restrictive Environment Prevent Falls/ Injury Progression Toward Outcome/Goals Progressing - Interdisciplinary Staff Present Iron Assorter/Social Work Staff Present: Liya Plata LMSW Nursing Staff Present: Jenny Santoyo RN OT Staff Present: Yudelka Villar PT Staff Present: Charley Ovalle Rec Therapy Staff Present: Lidia Bonds PUBLISHING DIRECTOR Staff Present: Elías Guerrero Medicine Note: Length of Stay: 3 days Anticipated Discharge Destination: Home Tentative Discharge Date: 02/03/19 Discharged to: home
[2019-01-31] MEDS: Atorvastatin* 80 MG TAB PO SCH (16:18)
[2019-01-31] MEDS: Magnesium Hydroxide LIQ* 30 ML UDC PO PRN (16:23)
--- NOTE | 2019-01-31 18:31 | PN ---
Progress Note Date of Service: 01/31/19 Note: NOAH JUAREZ was visited. Therapy notes read and reviewed. He was discussed in interdisciplinary team rounds. He was nauseated today but otherwise steady while walking Current Medications: Active Medications Generic Name Dose Route Start Last Admin Trade Name Freq PRN Reason Stop Dose Admin Acetaminophen 650 mg 01/17/19 11:45 Tylenol Tab* PO Q6H PRN MILD PAIN or TEMP > 100.4 Amlodipine Besylate 10 mg 01/18/19 09:00 01/31/19 12:14 Norvasc Tab* PO 10 mg DAILY LEX Administration Aspirin 81 mg 01/18/19 09:00 01/31/19 12:14 Aspirin Ec Tab* PO 81 mg DAILY LEX Administration Atorvastatin Calcium 80 mg 01/17/19 17:00 01/31/19 16:18 Lipitor* PO 80 mg 1700 LEX Administration Calcium Carbonate 1,000 mg 01/20/19 16:13 01/20/19 16:18 Tums* PO 1,000 mg QID PRN Administration HEARTBURN Clopidogrel Bisulfate 75 mg 01/18/19 09:00 01/31/19 12:14 Plavix Tab* PO 75 mg DAILY LEX Administration Docusate Sodium 100 mg 01/17/19 21:00 01/31/19 12:14 Colace Cap* PO 100 mg BID LEX Administration Heparin Sodium (Porcine) 5,000 units 01/17/19 14:00 01/31/19 16:18 Heparin Vial(*) SUBCUT 5,000 units Q8HR LEX Administration Lisinopril 20 mg 01/18/19 09:00 01/31/19 12:13 Prinivil Tab* PO 20 mg DAILY LEX Administration Magnesium Hydroxide 30 ml 01/17/19 11:45 01/31/19 16:23 Milk Of Magnesia Liq* PO 30 ml Q6H PRN Administration CONSTIPATION Ondansetron HCl 4 mg 01/31/19 09:32 01/31/19 16:23 Zofran Odt Tab* PO 4 mg Q6H PRN Administration NAUSEA Senna 2 tab 01/17/19 11:45 01/28/19 22:08 Senokot 8.6 Mg Tab* PO 2 tab BEDTIME PRN Administration CONSTIPATION Vital Signs: Vital Signs Temp Pulse Resp BP Pulse Ox 97.8 F 68 16 140/78 100 01/31/19 14:47 01/31/19 14:47 01/31/19 18:18 01/31/19 14:47 01/31/19 18:18 Exam: GENERAL: No acute distress. Alert and appropriate. HEENT: Right homonymous hemianopsia, better. LUNGS: Clear to auscultation bilaterally HEART: Regular rate and rhythm ABDOMEN: Soft, + bowel sounds, non-tender, non-distended. Chronic periumbilical hernia. EXTREMITIES: No edema. NEUROLOGIC: Dysmetria in RUE on FTN testing. Dyscoordination. Motor 5/5 BUE/ BLE. Sensation intact x4. Assessment/Plan: 1. Right Cerebellar CVA, left occipital lobe CVA: PT/OT. 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 May do ASA or Plavix alone after or continue DAPT. ORTIZ being reviewed 3. Hypertension: Norvasc/Lisinopril 4. DVT Prophylaxis: Lovenox 5. Mediastinal Lymphadenopathy: Will need CT of chest after discharge 6. Advance Directives: Full code. His son, Caesar, is his surrogate decision maker 7. Indigestion: Tums prn. 8. Estimated LOS: 02/03/19. 01/31/19 18:31
[2019-01-31] MEDS: Senna TAB 8.6 mg* TAB PO PRN (21:27)
[2019-02-01 05:36] LABS: ABS Eosinophils 0.1 10^3/ul (0-0.6); ABS Lymphocytes 1.8 10^3/ul (1.0-4.8); ABS Monocytes 0.4 10^3/ul (0-0.8); ABS Neutrophils 3.7 10^3/ul (1.5-7.7); Eosinophil % 2.4 %; Hematocrit 41 % (42-52); Lymphocyte % 29.2 %; Mean Corpuscular HGB Conc 34 g/dL (31-36); Mean Corpuscular Hemoglobin 31 pg (27-31); Mean Corpuscular Volume 90 fL (80-94); Mean Platelet Volume 7.5 fL (7.4-10.4); Nucleated Red Blood Cells % 0.1; Platelet Count 277 10^3/uL (150-450); Red Blood Count 4.57 10^6 /uL (4.18-5.48); Red Cell Distribution Width 14 % (10-15); White Blood Count 6.1 10^3/uL (3.5-10.8)
[2019-02-01] MEDS: Heparin VIAL(*) 5000 UNITS/ML VIAL (FIVE THOUSAND) SUBCUT SCH ×3 (05:41→21:28)
[2019-02-01 06:03] LABS: Albumin 3.6 g/dL (3.2-5.2); Albumin/Globulin Ratio 1.1 (1-3); BUN/Creatinine Ratio 17.4 (8-20); EGFR African American 72.4 (>60); EGFR Non-African American 59.8 (>60); Globulin 3.3 g/dL (2-4); Potassium 4.4 mmol/L (3.5-5.0); Total Bilirubin 0.4 mg/dL (0.2-1.0); Total Protein 6.9 g/dL (6.4-8.9)
[2019-02-01] MEDS: amLODIPine TAB* 5 MG PO SCH (08:54)
[2019-02-01] MEDS: Magnesium Hydroxide LIQ* 30 ML UDC PO PRN (08:54)
[2019-02-01] MEDS: Docusate CAP* 100 MG PO SCH ×2 (08:55→21:28)
[2019-02-01] MEDS: Lisinopril TAB* 10 MG PO SCH (08:55)
[2019-02-01] MEDS: Clopidogrel TAB* 75 MG PO SCH (08:55)
[2019-02-01] MEDS: Aspirin EC TAB* 81 MG TAB.EC PO SCH (08:55)
[2019-02-01] MEDS: Atorvastatin* 80 MG TAB PO SCH (16:54)
--- NOTE | 2019-02-01 18:17 | PN ---
Progress Note Date of Service: 02/01/19 Note: NOAH JUAREZ was visited. Therapy notes read and reviewed. Nausea better, otherwise doing ok. Walking with quad cane today: slow, but did okay Current Medications: Active Medications Generic Name Dose Route Start Last Admin Trade Name Freq PRN Reason Stop Dose Admin Acetaminophen 650 mg 01/17/19 11:45 Tylenol Tab* PO Q6H PRN MILD PAIN or TEMP > 100.4 Amlodipine Besylate 10 mg 01/18/19 09:00 02/01/19 08:54 Norvasc Tab* PO 10 mg DAILY LEX Administration Aspirin 81 mg 01/18/19 09:00 02/01/19 08:55 Aspirin Ec Tab* PO 81 mg DAILY LEX Administration Atorvastatin Calcium 80 mg 01/17/19 17:00 02/01/19 16:54 Lipitor* PO 80 mg 1700 LEX Administration Calcium Carbonate 1,000 mg 01/20/19 16:13 01/20/19 16:18 Tums* PO 1,000 mg QID PRN Administration HEARTBURN Clopidogrel Bisulfate 75 mg 01/18/19 09:00 02/01/19 08:55 Plavix Tab* PO 75 mg DAILY LEX Administration Docusate Sodium 100 mg 01/17/19 21:00 02/01/19 08:55 Colace Cap* PO 100 mg BID LEX Administration Heparin Sodium (Porcine) 5,000 units 01/17/19 14:00 02/01/19 14:23 Heparin Vial(*) SUBCUT 5,000 units Q8HR LEX Administration Lactulose 30 ml 02/01/19 12:13 02/01/19 14:24 Lactulose* PO 30 ml Q6H PRN Administration CONSTIPATION Lisinopril 20 mg 01/18/19 09:00 02/01/19 08:55 Prinivil Tab* PO 20 mg DAILY LEX Administration Magnesium Hydroxide 30 ml 01/17/19 11:45 02/01/19 08:54 Milk Of Magnesia Liq* PO 30 ml Q6H PRN Administration CONSTIPATION Ondansetron HCl 4 mg 01/31/19 09:32 01/31/19 16:23 Zofran Odt Tab* PO 4 mg Q6H PRN Administration NAUSEA Senna 2 tab 01/17/19 11:45 01/31/19 21:27 Senokot 8.6 Mg Tab* PO 2 tab BEDTIME PRN Administration CONSTIPATION Vital Signs: Vital Signs Temp Pulse Resp BP Pulse Ox 97.9 F 64 18 122/82 96 02/01/19 16:00 02/01/19 16:00 02/01/19 16:00 02/01/19 16:00 02/01/19 17:58 Lab Results: Laboratory Results - last 24 hr 02/01/19 02/01/19 05:16 05:16 WBC 6.1 RBC 4.57 Hgb 14.0 Hct 41 L MCV 90 MCH 31 MCHC 34 RDW 14 Plt Count 277 MPV 7.5 Neut % (Auto) 60.8 Lymph % (Auto) 29.2 Boyle % (Auto) 6.8 Eos % (Auto) 2.4 Baso % (Auto) 0.8 Absolute Neuts (auto) 3.7 Absolute Lymphs (auto) 1.8 Absolute Monos (auto) 0.4 Absolute Eos (auto) 0.1 Absolute Basos (auto) 0.0 Absolute Nucleated RBC 0.0 Nucleated RBC % 0.1 Sodium 138 Potassium 4.4 Chloride 102 Carbon Dioxide 28 Anion Gap 8 BUN 21 Creatinine 1.21 H Est GFR ( Amer) 72.4 Est GFR (Non-Af Amer) 59.8 BUN/Creatinine Ratio 17.4 Glucose 102 H Calcium 9.0 Total Bilirubin 0.40 AST 31 ALT 66 H Alkaline Phosphatase 91 Total Protein 6.9 Albumin 3.6 Globulin 3.3 Albumin/Globulin Ratio 1.1 Exam: GENERAL: No acute distress. Alert and appropriate. HEENT: Right homonymous hemianopsia, better. LUNGS: Clear to auscultation bilaterally HEART: Regular rate and rhythm ABDOMEN: Soft, + bowel sounds, non-tender, non-distended. Chronic periumbilical hernia. EXTREMITIES: No edema. NEUROLOGIC: Dysmetria in RUE on FTN testing. Dyscoordination. Motor 5/5 BUE/ BLE. Sensation intact x4. Assessment/Plan: 1. Right Cerebellar CVA, left occipital lobe CVA: PT/OT. 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 May do ASA or Plavix alone after or continue DAPT. ORTIZ being reviewed 3. Hypertension: Norvasc/Lisinopril 4. DVT Prophylaxis: Lovenox 5. Mediastinal Lymphadenopathy: Will need CT of chest after discharge 6. Advance Directives: Full code. His son, Caesar, is his surrogate decision maker 7. Indigestion: Tums prn. 8. Estimated LOS: 02/03/19. 02/01/19 18:18
[2019-02-01] MEDS: Ondansetron ODT TAB* 4 MG PO PRN (20:18)
[2019-02-02] MEDS: Heparin VIAL(*) 5000 UNITS/ML VIAL (FIVE THOUSAND) SUBCUT SCH ×3 (05:46→21:16)
[2019-02-02] MEDS: Ondansetron ODT TAB* 4 MG PO PRN (07:46)
[2019-02-02] MEDS: Aspirin EC TAB* 81 MG TAB.EC PO SCH (08:43)
[2019-02-02] MEDS: Clopidogrel TAB* 75 MG PO SCH (08:43)
[2019-02-02] MEDS: amLODIPine TAB* 5 MG PO SCH (08:43)
[2019-02-02] MEDS: Docusate CAP* 100 MG PO SCH ×2 (08:43→21:16)
[2019-02-02] MEDS: Lisinopril TAB* 10 MG PO SCH (08:44)
[2019-02-02] MEDS: Atorvastatin* 80 MG TAB PO SCH (16:39)
--- NOTE | 2019-02-02 19:22 | PN ---
Progress Note Date of Service: 02/02/19 Note: NOAH JUAREZ was visited. Therapy notes read and reviewed. He is doing okay at the present time and will go home tomorrow. Will leave on DAPT for now. Current Medications: Active Medications Generic Name Dose Route Start Last Admin Trade Name Freq PRN Reason Stop Dose Admin Acetaminophen 650 mg 01/17/19 11:45 Tylenol Tab* PO Q6H PRN MILD PAIN or TEMP > 100.4 Amlodipine Besylate 10 mg 01/18/19 09:00 02/02/19 08:43 Norvasc Tab* PO 10 mg DAILY LEX Administration Aspirin 81 mg 01/18/19 09:00 02/02/19 08:43 Aspirin Ec Tab* PO 81 mg DAILY LEX Administration Atorvastatin Calcium 80 mg 01/17/19 17:00 02/02/19 16:39 Lipitor* PO 80 mg 1700 LEX Administration Calcium Carbonate 1,000 mg 01/20/19 16:13 01/20/19 16:18 Tums* PO 1,000 mg QID PRN Administration HEARTBURN Clopidogrel Bisulfate 75 mg 01/18/19 09:00 02/02/19 08:43 Plavix Tab* PO 75 mg DAILY LEX Administration Docusate Sodium 100 mg 01/17/19 21:00 02/02/19 08:43 Colace Cap* PO 100 mg BID LEX Administration Heparin Sodium (Porcine) 5,000 units 01/17/19 14:00 02/02/19 14:52 Heparin Vial(*) SUBCUT 5,000 units Q8HR LEX Administration Lactulose 30 ml 02/01/19 12:13 02/01/19 14:24 Lactulose* PO 30 ml Q6H PRN Administration CONSTIPATION Lisinopril 20 mg 01/18/19 09:00 02/02/19 08:44 Prinivil Tab* PO 20 mg DAILY LEX Administration Magnesium Hydroxide 30 ml 01/17/19 11:45 02/01/19 08:54 Milk Of Magnesia Liq* PO 30 ml Q6H PRN Administration CONSTIPATION Ondansetron HCl 4 mg 01/31/19 09:32 02/02/19 07:46 Zofran Odt Tab* PO 4 mg Q6H PRN Administration NAUSEA Senna 2 tab 01/17/19 11:45 01/31/19 21:27 Senokot 8.6 Mg Tab* PO 2 tab BEDTIME PRN Administration CONSTIPATION Vital Signs: Vital Signs Temp Pulse Resp BP Pulse Ox 98.4 F 64 17 113/70 95 02/02/19 15:11 02/02/19 15:11 02/02/19 16:46 02/02/19 15:11 02/02/19 16:46 Exam: GENERAL: No acute distress. Alert and appropriate. HEENT: Right homonymous hemianopsia, better. LUNGS: Clear to auscultation bilaterally HEART: Regular rate and rhythm ABDOMEN: Soft, + bowel sounds, non-tender, non-distended. Chronic periumbilical hernia. EXTREMITIES: No edema. NEUROLOGIC: Dysmetria in RUE on FTN testing. Dyscoordination. Motor 5/5 BUE/ BLE. Sensation intact x4. Assessment/Plan: 1. Right Cerebellar CVA, left occipital lobe CVA: PT/OT. 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 Hypertension: Norvasc/Lisinopril 4. DVT Prophylaxis: Lovenox 5. Mediastinal Lymphadenopathy: Will need CT of chest after discharge 6. Advance Directives: Full code. His son, Caesar, is his surrogate decision maker 7. Indigestion: Tums prn. 8. Estimated LOS: 02/03/19. 02/02/19 19:23
[2019-02-03 05:27] VITALS: BP 125/83
[2019-02-03] MEDS: Heparin VIAL(*) 5000 UNITS/ML VIAL (FIVE THOUSAND) SUBCUT SCH (05:40)
[2019-02-03] MEDS: Lisinopril TAB* 10 MG PO SCH (08:10)
[2019-02-03] MEDS: Aspirin EC TAB* 81 MG TAB.EC PO SCH (08:10)
[2019-02-03] MEDS: Docusate CAP* 100 MG PO SCH (08:10)
[2019-02-03] MEDS: amLODIPine TAB* 5 MG PO SCH (08:10)
[2019-02-03] MEDS: Clopidogrel TAB* 75 MG PO SCH (08:10)
--- NOTE | 2019-02-03 09:48 | PN ---
Progress Note Date of Service: 02/03/19 Note: NOAH JUAREZ was visited. Nursing and therapy notes read and reviewed. He is excited to go home today. No chest pain, shortness of breath or abdominal pain. Current Medications: Active Medications Generic Name Dose Route Start Last Admin Trade Name Freq PRN Reason Stop Dose Admin Acetaminophen 650 mg 01/17/19 11:45 Tylenol Tab* PO Q6H PRN MILD PAIN or TEMP > 100.4 Amlodipine Besylate 10 mg 01/18/19 09:00 02/03/19 08:10 Norvasc Tab* PO 10 mg DAILY LEX Administration Aspirin 81 mg 01/18/19 09:00 02/03/19 08:10 Aspirin Ec Tab* PO 81 mg DAILY LEX Administration Atorvastatin Calcium 80 mg 01/17/19 17:00 02/02/19 16:39 Lipitor* PO 80 mg 1700 LEX Administration Calcium Carbonate 1,000 mg 01/20/19 16:13 01/20/19 16:18 Tums* PO 1,000 mg QID PRN Administration HEARTBURN Clopidogrel Bisulfate 75 mg 01/18/19 09:00 02/03/19 08:10 Plavix Tab* PO 75 mg DAILY LEX Administration Docusate Sodium 100 mg 01/17/19 21:00 02/03/19 08:10 Colace Cap* PO 100 mg BID LEX Administration Heparin Sodium (Porcine) 5,000 units 01/17/19 14:00 02/03/19 05:40 Heparin Vial(*) SUBCUT 5,000 units Q8HR LEX Administration Lactulose 30 ml 02/01/19 12:13 02/01/19 14:24 Lactulose* PO 30 ml Q6H PRN Administration CONSTIPATION Lisinopril 20 mg 01/18/19 09:00 02/03/19 08:10 Prinivil Tab* PO 20 mg DAILY LEX Administration Magnesium Hydroxide 30 ml 01/17/19 11:45 02/01/19 08:54 Milk Of Magnesia Liq* PO 30 ml Q6H PRN Administration CONSTIPATION Ondansetron HCl 4 mg 01/31/19 09:32 02/02/19 07:46 Zofran Odt Tab* PO 4 mg Q6H PRN Administration NAUSEA Senna 2 tab 01/17/19 11:45 01/31/19 21:27 Senokot 8.6 Mg Tab* PO 2 tab BEDTIME PRN Administration CONSTIPATION Vital Signs: Vital Signs Temp Pulse Resp BP Pulse Ox 97.6 F 68 12 125/83 96 02/03/19 05:00 02/03/19 05:00 02/03/19 05:00 02/03/19 05:00 02/03/19 05:00 Exam: GENERAL: No acute distress. Alert and appropriate. HEENT: Right homonymous hemianopsia, improving. LUNGS: Clear to auscultation bilaterally HEART: Regular rate and rhythm ABDOMEN: Soft, + bowel sounds, non-tender, non-distended. Chronic periumbilical hernia. EXTREMITIES: No edema. NEUROLOGIC: Dysmetria in RUE on FTN testing. Dyscoordination. Motor 5/5 BUE/ BLE. Sensation intact x4. Assessment/Plan: 1. Right Cerebellar CVA, left occipital lobe CVA: PT/OT. ASA/Plavix/Lipitor 2. Fibroelastoma of Aortic and Mitral Valve: ASA/Plavix ORTIZ being reviewed per Dr. James and will f/u with him regarding transition from dual antiplatelet therapy to single antiplatelet therapy. 3. Hypertension: Norvasc/Lisinopril 4. DVT Prophylaxis: Lovenox 5. Mediastinal Lymphadenopathy: Will need CT of chest after discharge 6. Advance Directives: Full code. His son, Caesar, is his surrogate decision maker 7. Indigestion: Tums prn. 8. Estimated LOS: D/C home today. 02/03/19 09:46
--- NOTE | 2019-02-03 11:47 | DS ---
CC: Fabricio Bates MD; Dr. James REHABILITATION DISCHARGE SUMMARY: DATE OF ADMISSION: 01/17/19 DATE OF DISCHARGE: 02/03/19 PRIMARY CARE PHYSICIAN: Fabricio Bates MD. VESSEL BUILDER: Dr. James. REASON FOR ADMISSION: Right cerebellar and left occipital lobe CVA. HISTORY OF PRESENT ILLNESS: For full details of his acute hospitalization leading up to his admission, please see the note dictated by Dr. Rosario on 05/03. Briefly, he presented on 01/08/19 with headache, nausea, and vertigo and difficulty getting up. MRI of his brain showed lesions in the right cerebellum and left occipital lobe. Transesophageal echo showed lesions on his aortic valve that were felt possibly to be fibroelastomas and source of embolic strokes. He was put on aspirin and Plavix and Lipitor. REHABILITATION COURSE: During his time on the [facility], he was seen in followup by Dr. James, who recommended he have an event monitor to determine whether he has also underlying atrial fibrillation contributing to his strokes. That was placed on 01/23/19 without incident. He is to follow up with Dr. James and stay on aspirin, Plavix, and Lipitor for now. For hypertension, he has been receiving Norvasc and lisinopril with good control. He has had some improvement with decreased right- sided field cut and improved balance. He does have dyscoordination, however, on the right side. On the acute care service, imaging showed that he had some mediastinal lymph adenopathy which will require him to have a CT of the chest for further evaluation after discharge. During his time on the [facility], he participated well with physical therapy. At the time of discharge, he is independent with bed mobility, transfers with the rolling walker, and ambulating up to 150 feet using a rolling walker. He can climb 12 stairs with 2 rails and supervision. He has a home exercise program that he is able to perform. He uses a rolling walker when ambulating and transferring and should use socks with traction or shoes when he is up. It is recommended that his son assist with the coal stove at home and also assist with home orientation on the first day back. He will have home therapy as well. He also participated well with occupational therapy. At the time of discharge he is independent with eating. He is independent bathing while seated, but should have initial supervision for the first tub transfer. He is independent dressing using a walker for support and standing. He is independent toileting with the walker and grab bars. He can do light meal prep independently using a walker. He is to use a walker tray or basket to transport items safely and should have initial assistance for laundry and other household tasks. FOLLOWUP: 1. He has an appointment with Dr. Bates on 02/07/19 at 10:10 a.m. to establish primary care. 2. Follow up with Dr. James in 1 to 2 weeks. 3. A referral is being [facility] for [facility] care and ongoing therapies. DISCHARGE MEDICATIONS: 1. Amlodipine 10 mg daily. 2. Aspirin 81 mg daily. 3. Atorvastatin 80 mg q.p.m. 4. Plavix 75 mg daily. 5. Docusate 100 mg b.i.d. 6. Lisinopril 20 mg daily. 7. Senna 2 tablets at bedtime p.r.n. for constipation. DISCHARGE DIAGNOSES: 1. Ischemic stroke to the right cerebellum and left occipital lobes. 2. Right homonymous hemianopsia. 3. Poor coordination. 4. Hypertension. 5. Mediastinal lymphadenopathy. 6. Fibroelastoma of aortic and mitral valves. DISCHARGE CONDITION: Fair. DISCHARGE DISPOSITION: Home with family support. DISCHARGE DIET: Regular. [id number]/[id number] #: [id number]
== END 2019-02-03 12:00 | disposition home health service (06) | DRG 42 ==
LOC: PMRU 07:29 → UNDOADMIN 07:29 → PMRU 10:44
PROVIDERS: ADMIT Physical Medicine & Rehabilitation; ATTEND Physical Medicine & Rehabilitation
PROC: F07Z5ZZ Bed Mobility Treatment (ICD-10-PCS; principal; 2019-01-17)
PROC: F07Z9ZZ Gait Training/Functional Ambulation Treatment (ICD-10-PCS; 2019-01-17)
PROC: F07Z8ZZ Transfer Training Treatment (ICD-10-PCS; 2019-01-17)
PROC: F07Z4ZZ Wheelchair Mobility Treatment (ICD-10-PCS; 2019-01-17)
PROC: F08Z0ZZ Bathing/Showering Techniques Treatment (ICD-10-PCS; 2019-01-17)
PROC: F08Z1ZZ Dressing Techniques Treatment (ICD-10-PCS; 2019-01-17)
PROC: F08Z3ZZ Feeding/Eating Treatment (ICD-10-PCS; 2019-01-17)
PROC: F08Z2ZZ Grooming/Personal Hygiene Treatment (ICD-10-PCS; 2019-01-17)
PROC: 0JH632Z Insertion of Monitoring Device into Chest Subcutaneous Tissue and Fascia, Percutaneous Approach (ICD-10-PCS; 2019-01-23)
PROC: B246ZZ4 Ultrasonography of Right and Left Heart, Transesophageal (ICD-10-PCS; 2019-01-23)
DX: I63.441 Cerebral infarction due to embolism of right cerebellar artery (principal); H53.461 Homonymous bilateral field defects, right side; I63.432 Cerebral infarction due to embolism of left posterior cerebral artery; I10 Essential (primary) hypertension; R59.0 Localized enlarged lymph nodes; R27.8 Other lack of coordination; K30 Functional dyspepsia; D15.1 Benign neoplasm of heart; I48.91 Unspecified atrial fibrillation; N40.0 Benign prostatic hyperplasia without lower urinary tract symptoms; F10.20 Alcohol dependence, uncomplicated; Z79.02 Long term (current) use of antithrombotics/antiplatelets; Z79.82 Long term (current) use of aspirin; Z79.899 Other long term (current) drug therapy; Z87.891 Personal history of nicotine dependence; Z84.1 Family history of disorders of kidney and ureter; Z82.49 Family history of ischemic heart disease and other diseases of the circulatory system
CPT/HCPCS: 33285; 36415; 80053; 85025; A9270-GY; C1764; J1644